=== PATIENT | male | born 1950 | race Caucasian/White ===

== ENCOUNTER 2023-03-13 17:49 | Inpatient (IN) | payer OTHER ==
[2023-03-13 18:52] LABS: Absolute Lymphocytes (CBC) 0.9 K/uL (0.7-4.9); Hematocrit 42.7 % (39.6-49.0); MCV 90.6 fL (80-100); MPV 8.9 fL (7.6-11.3); Platelets 195 thou/uL (152-406); RBC Red Blood Cell Count 4.72 M/uL (4.33-5.43)
[2023-03-13 19:02] LABS: Specific Gravity 1.029 (1.005-1.030); Urine Bacteria None Seen /HPF (<20); Urine Bilirubin NEGATIVE (Negative); Urine Blood Negative (Negative); Urine Clarity Clear (Clear); Urine Color Yellow (Yellow); Urine Glucose NEGATIVE (Negative); Urine Protein 1+ (Negative); Urine RBC <5 /HPF (None Seen); Urine Urobilinogen 1+ (Normal)
[2023-03-13 19:18] LABS: Albumin 3.4 g/dL (3.4-5.0); Bilirubin Total 0.8 mg/dL (0.2-1.0); Protein, Total 7.4 g/dL (6.4-8.2)
--- NOTE | 2023-03-13 20:10 | RAD REPORT ---
EXAM DESCRIPTION: CT - Angio Aorta For Dissection - 03/13/2023 7:52 pm CLINICAL HISTORY: Chest pain radiating to the back. ABD PAIN COMPARISON: No comparisons TECHNIQUE: CT angiography of the aorta was performed with MIPs. All CT scans are performed using dose optimization technique as appropriate and may include automated exposure control or mA/KV adjustment according to patient size. FINDINGS: A left aortic arch is present with normal branching pattern of the great vessels.No acute aortic finding is seen such as aneurysm, penetrating ulcer or dissection. The celiac axis, SMA, ILIANA and renal arteries are patent. No evidence of pulmonary embolism. Prominent emphysema. The liver demonstrates no focal mass or biliary dilatation.Cholecystectomy.The spleen, pancreas, adre nal glands are within normal limits for arterial phase imaging.Nonobstructing bilateral caliceal calc corby suspected. Benign bilateral renal cysts. A long segment of the sigmoid colon measuring 10-11 cm is abnormally thickened. There is irregular ri m enhancing 20 mm intramural fluid collection as well. Several diverticular present region. Although diverticulitis is a possibility, a colonic mass is also potential etiology. No pathologic enlarged ly mphadenopathy identified. Moderate lumbar degenerative changes. IMPRESSION: There is an abnormal 10-11 cm length of sigmoid colon noted in the left lower quadrant. There are several diverticula in this region as well as a 20 mm intramural enhancing fluid collection . The collective findings could be result of diverticulitis with intramural abscess, however the degr ee of pericolonic inflammation is limited.After appropriate therapy, although colonoscopy would be re commended as malignancy could also have this appearance. Diffuse COPD.
[2023-03-13 20:16] LABS: SARS-CoV-2 Antigen Rapid Res Negative (Negative)
--- NOTE | 2023-03-13 20:38 | EDPHYS ---
Physician Documentation [facility] Name: Soco Gillis Jr Age: 73 yrs Sex: Male : 1950 Arrival Date: 03/13/2023 Time: 17:49 Bed 15 Private MD: ED Physician Anuj Salazar HPI: 03/13 18:45 This 73 yrs old Male presents to ER via EMS with complaints of Abdominal Pain. snw 18:45 The patient presents with abdominal pain in the lower abdomen. Onset: The snw symptoms/episode began/occurred acutely. The symptoms do not radiate. Associated signs and symptoms: Pertinent positives: anorexia, diarrhea. The symptoms are described as crampy. Severity of pain: At its worst the pain was moderate. It is unknown whether or not the patient has had similar symptoms in the past. The patient has not recently seen a physician. Historical: - Allergies: 20:46 Codeine; kl 22:18 Cipro; kl - Home Meds: 20:46 simvastatin 20 mg Oral tablet 1 tab every day at bedtime [Active]; famotidine 20 mg kl Oral tablet 1 tab 2 times per day [Active]; carvedilol 6.25 mg oral tablet 1 tab 2 times per day [Active]; nitroglycerin 0.3 mg SL Tablet, Sublingual 1 tab every 5 minutes for acute episode of anginal pain [Active]; aspirin 81 mg Oral capsule 1 cap daily [Active]; - PMHx: 17:55 Myocardial infarction; Hypercholesterolemia; Diverticulitis; tm6 - PSHx: 17:55 Cholecystectomy; Stented artery; tm6 - Immunization history:: Adult Immunizations not up to date, Client reports having NOT received the Covid vaccine. - Social history:: Smoking status: Patient reports the use of cigarette tobacco products, smokes one-half pack cigarettes per day, Patient/guardian denies using alcohol. ROS: 18:43 Constitutional: Negative for fever, chills, and weight loss, Eyes: Negative for injury, snw pain, redness, and discharge, ENT: Negative for injury, pain, and discharge, Neck: Negative for injury, pain, and swelling, Cardiovascular: Negative for chest pain, palpitations, and edema, Respiratory: Negative for shortness of breath, cough, wheezing, and pleuritic chest pain, Back: Negative for injury and pain, : Negative for injury, bleeding, discharge, and swelling, MS/Extremity: Negative for injury and deformity, Skin: Negative for injury, rash, and discoloration, Neuro: Negative for headache, weakness, numbness, tingling, and seizure, Psych: Negative for depression, anxiety, suicide ideation, homicidal ideation, and hallucinations, 18:43 Abdomen/GI: Positive for abdominal pain, nausea, vomiting, and diarrhea, Exam: 18:43 Constitutional: This is a well developed, well nourished patient who is awake, alert, snw and in no acute distress. Head/Face: Normocephalic, atraumatic. Eyes: Pupils equal round and reactive to light, extra-ocular motions intact. Lids and lashes normal. Conjunctiva and sclera are non-icteric and not injected. Cornea within normal limits. Periorbital areas with no swelling, redness, or edema. ENT: Nares patent. No nasal discharge, no septal abnormalities noted. Tympanic membranes are normal and external auditory canals are clear. Oropharynx with no redness, swelling, or masses, exudates, or evidence of obstruction, uvula midline. Mucous membranes moist. Neck: Trachea midline, no thyromegaly or masses palpated, and no cervical lymphadenopathy. Supple, full range of motion without nuchal rigidity, or vertebral point tenderness. No Meningismus. Chest/axilla: Normal chest wall appearance and motion. Nontender with no deformity. No lesions are appreciated. Cardiovascular: Regular rate and rhythm with a normal S1 and S2. No gallops, murmurs, or rubs. Normal PMI, no JVD. No pulse deficits. Respiratory: Lungs have equal breath sounds bilaterally, clear to auscultation and percussion. No rales, rhonchi or wheezes noted. No increased work of breathing, no retractions or nasal flaring. Back: No spinal tenderness. No costovertebral tenderness. Full range of motion. Skin: Warm, dry with normal turgor. Normal color with no rashes, no lesions, and no evidence of cellulitis. MS/ Extremity: Pulses equal, no cyanosis. Neurovascular intact. Full, normal range of motion. Neuro: Awake and alert, GCS 15, oriented to person, place, time, and situation. Cranial nerves II-XII grossly intact. Motor strength 5/5 in all extremities. Sensory grossly intact. Cerebellar exam normal. Normal gait. Psych: Awake, alert, with orientation to person, place and time. Behavior, mood, and affect are within normal limits. 18:43 Abdomen/GI: Inspection: distension, Bowel sounds: hyperactive, in all quadrants, Palpation: mild abdominal tenderness, in the right lower quadrant and left lower quadrant, Vital Signs: 17:54 BP 146 / 124; Temp 98.2(O); Pulse Ox 95% on R/A; Weight 66.22 kg; Height 6 ft. 0 in. ; tm6 17:57 Pulse 78; tm6 18:04 BP 146 / 124; Pulse 82; Resp 17; Pulse Ox 97% on R/A; Pain 3/10; tm6 18:28 BP 160 / 91; Pulse 79; Pulse Ox 96% on R/A; tm6 20:15 BP 128 / 73; kl 21:23 BP 137 / 88; Pulse 72; Resp 16; Pulse Ox 97% ; kl 22:23 BP 116 / 68; Pulse 70; Resp 20; kl 17:54 Body Mass Index 19.80 (66.22 kg, 182.88 cm) tm6 18:04 Pain Scale: Adult tm6 MDM: 17:59 Differential diagnosis: AAA, hypertension, non-specific abd pain. Data reviewed: vital snw signs, nurses notes, lab test result(s), EKG, radiologic studies. Historians other than the Patient: EMS: [facility]. Care significantly affected by the following chronic conditions: Hypertension, diverticulitis. 18:00 Patient medically screened. snw 18:45 Counseling: I had a detailed discussion with the patient and/or guardian regarding the snw historical points, exam findings, and any diagnostic results supporting the discharge/admit diagnosis, the presence of at least one elevated blood pressure reading (>120/80) during this emergency department visit. 19:46 ED course: pt to CT via stretcher in no distress. snw 20:51 Management of patient was discussed with the following: Hospitalist: Alexandra Mujica. Response to treatment: the patient's symptoms have mildly improved after treatment. 03/13 17:56 Order name: CBC with Diff; Complete Time: 19:00 ld1 03/13 17:56 Order name: CMP; Complete Time: 19:19 ld1 03/13 17:56 Order name: Lipase; Complete Time: 19:19 ld1 03/13 17:56 Order name: Urinalysis w/ reflexes; Complete Time: 19:05 ld1 03/13 18:00 Order name: Troponin High Sensitivity; Complete Time: 19:35 snw 03/13 18:00 Order name: Blood Culture Adult (2) snw 03/13 18:47 Order name: Flu; Complete Time: 20:19 snw 03/13 18:47 Order name: SARS RAPID; Complete Time: 20:18 snw 03/13 22:05 Order name: Basic Metabolic Panel EDMS 03/13 22:05 Order name: Basic Metabolic Panel; Complete Time: 16:13 EDMS 03/13 22:05 Order name: Basic Metabolic Panel EDMS 03/13 22:05 Order name: Basic Metabolic Panel EDMS 03/13 22:05 Order name: CBC with Automated Diff EDMS 03/13 22:05 Order name: CBC with Automated Diff; Complete Time: 16:13 EDMS 03/13 22:05 Order name: CBC with Automated Diff EDMS 03/13 22:05 Order name: CBC with Automated Diff EDMS 03/13 22:05 Order name: Lipid Profile EDMS 03/13 22:05 Order name: Lipid Profile; Complete Time: 16:13 EDMS 03/13 22:05 Order name: Magnesium EDVT 03/13 22:05 Order name: Magnesium; Complete Time: 16:13 EDMS 03/13 22:05 Order name: Magnesium EDMS 03/13 22:05 Order name: Magnesium EDMS 03/13 22:07 Order name: Urinalysis w/ reflexes EDMS 03/13 17:58 Order name: CT Aorta for Dissection; Complete Time: 20:12 snw 03/13 22:05 Order name: CONS Physician Consult EDMS 03/13 17:56 Order name: IV Saline Lock; Complete Time: 18:05 ld1 03/13 17:56 Order name: Labs collected and sent; Complete Time: 18:27 ld1 03/13 20:51 Order name: NPO; Complete Time: 21:44 snw Administered Medications: 20:34 Not Given (Other Intervention Used): [id number] mg PO once kl 20:36 Drug: Ciprofloxacin IVPB 400 mg 200 ml IVPB once over 60 mins Volume: 200 ml; Route: kl IVPB; Infused Over: 60 mins; Site: right antecubital; 21:49 Drug: diphenhydrAMINE IVP 25 mg IVP once Route: IVP; Site: right antecubital; kl 22:18 Follow up: Response: Marked relief of symptoms kl Disposition Summary: 03/13/23 20:37 Hospitalization Ordered Notes: Hospitalization Status: Inpatient Admission snw Location: Telemetry/MedSurg (Inpatient) snw Condition: Stable snw Problem: an acute exacerbation snw Symptoms: are unchanged snw Bed/Room Type: Standard snw Provider: Harry Mujica(03/13/23 20:49) snw Room Assignment: 404(03/13/23 22:19) as6 Diagnosis - Diverticulitis of intestine, part unspecified, without perforation or abscess snw without bleeding - possible abscess, 20mm fluid collection Forms: - Medication Reconciliation Form snw - SBAR form snw - Leadership Thank You Letter snw Signatures: Dispatcher [employer] EDMS Padma Flynn RN RN Vandana Carrillo FNP-C TELECOMMUNICATION ENGINEER-Csnw Sue Wade RN RN ld1 [place] RN RN as6 Qian Richmond RN RN tm6 Corrections: (The following items were deleted from the chart) 20:46 20:44 Allergies: No Known Allergies; [facility] 20:49 20:37 Lorene Yeboah snw snw 22:19 20:37 snw as6
--- NOTE | 2023-03-13 20:38 | ER ---
Nurse's Notes [facility] Name: Soco Gillis Jr Age: 73 yrs Sex: Male : 1950 Arrival Date: 03/13/2023 Time: 17:49 Bed 15 Private MD: Diagnosis: Diverticulitis of intestine, part unspecified, without perforation or abscess without bleeding-possible abscess, 20mm fluid collection Presentation: 03/13 17:54 Chief complaint: EMS states: abdominal pain x1 day, LLQ and RUQ. Coronavirus screen: tm6 Vaccine status: Patient reports being unvaccinated. Ebola Screen: Patient negative for fever greater than or equal to 101.5 degrees Fahrenheit, and additional compatible Ebola Virus Disease symptoms Patient denies exposure to infectious person. Patient denies travel to an Ebola-affected area in the 21 days before illness onset. No symptoms or risks identified at this time. Initial Sepsis Screen: Does the patient meet any 2 criteria? No. Patient's initial sepsis screen is negative. Does the patient have a suspected source of infection? No. Patient's initial sepsis screen is negative. Risk Assessment: Do you want to hurt yourself or someone else? Patient reports no desire to harm self or others. Onset of symptoms was March 13, 2023. 17:54 Method Of Arrival: EMS: [facility] tm6 17:54 Acuity: KAY 3 tm6 Triage Assessment: 18:01 General: Appears in no apparent distress. Behavior is calm, cooperative, appropriate tm6 for age. Pain: Complains of pain in abdomen Pain began 1 day ago. EENT: No signs and/or symptoms were reported regarding the EENT system. Neuro: Level of Consciousness is awake, alert, obeys commands, Oriented to person, place, time, situation. Cardiovascular: Capillary refill < 3 seconds Patient's skin is warm and dry. Respiratory: Airway is patent Respiratory effort is even, unlabored, Respiratory pattern is regular, symmetrical. GI: Abdomen is non-distended, Reports lower abdominal pain, upper abdominal pain. : No signs and/or symptoms were reported regarding the genitourinary system. Derm: No signs and/or symptoms reported regarding the dermatologic system. Musculoskeletal: No signs and/or symptoms reported regarding the musculoskeletal system. Historical: - Allergies: 20:46 Codeine; kl 22:18 Cipro; kl - Home Meds: 20:46 simvastatin 20 mg Oral tablet 1 tab every day at bedtime [Active]; famotidine 20 mg kl Oral tablet 1 tab 2 times per day [Active]; carvedilol 6.25 mg oral tablet 1 tab 2 times per day [Active]; nitroglycerin 0.3 mg SL Tablet, Sublingual 1 tab every 5 minutes for acute episode of anginal pain [Active]; aspirin 81 mg Oral capsule 1 cap daily [Active]; - PMHx: 17:55 Myocardial infarction; Hypercholesterolemia; Diverticulitis; tm6 - PSHx: 17:55 Cholecystectomy; Stented artery; tm6 - Immunization history:: Adult Immunizations not up to date, Client reports having NOT received the Covid vaccine. - Social history:: Smoking status: Patient reports the use of cigarette tobacco products, smokes one-half pack cigarettes per day, Patient/guardian denies using alcohol. Screenin:03 [facility] ED Fall Risk Assessment (Adult) History of falling in the last 3 months, tm6 including since admission No falls in past 3 months (0 pts). Abuse screen: Denies threats or abuse. Denies injuries from another. Nutritional screening: No deficits noted. Tuberculosis screening: No symptoms or risk factors identified. Assessment: 18:03 General: see triage assessment. tm6 18:27 Reassessment: Patient appears in no apparent distress at this time. Patient and/or tm6 family updated on plan of care and expected duration. Pain level reassessed. Patient is alert, oriented x 3, equal unlabored respirations, skin warm/dry/pink. General:. 21:42 Reassessment: pt c/o itching at insertion site of medication administration pt received kl 192 cc of Cipro denies SOB or any other area of itching infusion stopped provider notified order rec'd. 22:27 Reassessment: Patient appears in no apparent distress at this time. Vital Signs: 17:54 BP 146 / 124; Temp 98.2(O); Pulse Ox 95% on R/A; Weight 66.22 kg; Height 6 ft. 0 in. ; tm6 17:57 Pulse 78; tm6 18:04 BP 146 / 124; Pulse 82; Resp 17; Pulse Ox 97% on R/A; Pain 3/10; tm6 18:28 BP 160 / 91; Pulse 79; Pulse Ox 96% on R/A; tm6 20:15 BP 128 / 73; kl 21:23 BP 137 / 88; Pulse 72; Resp 16; Pulse Ox 97% ; kl 22:23 BP 116 / 68; Pulse 70; Resp 20; kl 17:54 Body Mass Index 19.80 (66.22 kg, 182.88 cm) tm6 18:04 Pain Scale: Adult tm6 ED Course: 17:50 Patient arrived in ED. ld1 17:54 Qian Richmond, YANICK is Primary Nurse. tm6 17:55 Triage completed. tm6 17:58 Vandana Foster FNP-C is PHCP. snw 17:58 Anuj Salazar MD is Attending Physician. snw 18:01 Arm band placed on right wrist. tm6 18:03 Bed in low position. Call light in reach. Side rails up X2. Provided Education on: need tm6 for VS monitoring. Client placed on continuous cardiac and pulse oximetry monitoring. NIBP monitoring applied. Door closed. Noise minimized. Warm blanket given. 18:03 No provider procedures requiring assistance completed. Maintain EMS IV. Dressing tm6 intact. Site clean \T\ dry. Gauge \T\ site: 20g RAC. 18:27 Blood Culture Adult (2) Sent. ld1 18:27 Troponin High Sensitivity Sent. ld1 18:27 CBC with Diff Sent. ld1 18:27 CMP Sent. ld1 18:27 Lipase Sent. ld1 18:27 Urinalysis w/ reflexes Sent. ld1 19:54 CT Aorta for Dissection In Process Unspecified. EDMS 20:05 No apparent distress. Resting quietly. Appears to be sleeping. kl 20:35 Lorene Yeboah MD is Hospitalizing Provider. snw 20:49 Harry Mujica is Hospitalizing Provider. snw 22:28 Patient admitted, IV remains in place. kl Administered Medications: 20:34 Not Given (Other Intervention Used): [id number] mg PO once kl 20:36 Drug: Ciprofloxacin IVPB 400 mg 200 ml IVPB once over 60 mins Volume: 200 ml; Route: kl IVPB; Infused Over: 60 mins; Site: right antecubital; 21:49 Drug: diphenhydrAMINE IVP 25 mg IVP once Route: IVP; Site: right antecubital; kl 22:18 Follow up: Response: Marked relief of symptoms jenifer Medication: 18:03 VIS not applicable for this client. tm6 Outcome: 20:37 Decision to Hospitalize by Provider. shannon 22:28 Admitted to Tele accompanied by ken, via stretcher, room 404, Report called to Anthony burgess 22:28 Condition: improved 22:28 Discharge instructions given to patient, Instructed on the need for admit, Demonstrated understanding of instructions, 22:28 Patient left the ED. Signatures: Dispatcher [employer] EDPadma Ya, RN RN Vandana Carrillo, FISCAL OFFICER-C FISCAL OFFICER-Csnw Sue Wade RN RN ld1 Qian Richmond RN RN tm6 Corrections: (The following items were deleted from the chart) 20:46 20:44 Allergies: No Known Allergies; [facility]
[2023-03-13] MEDS ORDERED: CIPROFLOXACIN 400mg IV 400 MG/200 ML BAG IV ONE (20:39)
[2023-03-13] MEDS ORDERED: ACETAMINOPHEN 500 MG TAB PO PRN (21:58)
[2023-03-13] MEDS ORDERED: HYDROCODONE/APAP 5/325 MG TAB PO PRN (21:58)
[2023-03-13] MEDS ORDERED: DIPHENHYDRAMINE 50 MG/ML VIAL ONE (22:00)
[2023-03-13] MEDS ORDERED: ALBUTEROL 2.5 MG/3 ML NEB SOL NEB PRN (22:03)
[2023-03-13] MEDS ORDERED: SODIUM CHLORIDE 0.9% 10ML INJ IV PRN (22:08)
--- NOTE | 2023-03-13 22:20 | P.HP ---
Certification for Inpatient Patient admitted to: Inpatient With expected LOS: <2 Midnights <Lucia Alvarado - Last Filed: 03/13/23 22:40> Patient History Date of Service: 03/13/23 Reason for admission: Abdominal Pain, Diverticulitis History of Present Illness: A 73-year-old male patient with a history of hypertension, CAD, hyperlipidemia, diverticulitis presented to the emergency room with the complaints of abdominal pain on the left lower quadrant in the right upper quadrant for almost 1 week. Patient reports pain on and off for 1 week but increased pain today associated with vomiting 3 times and diarrhea 3 times today. Patient denies fever chills, patient denies chest pain, shortness of breath and palpitation. ED course Patient is alert and oriented, not in any apparent distress at this time. Vital signs blood pressure 146/124, temperature 98.2, pulse 82, pulse ox 95% on room air. EKG showing sinus rhythm. Initial laboratory findings are unremarkable.CT abdomen shows diverticulitis with an intramural abscess. Patient received IV fluids, analgesics and ciprofloxacin in the emergency room. Admitting the patient with a diagnosis of diverticulitis and intramural abscess. Home medications list reviewed: Yes - Past Medical/Surgical History Diabetic: No -: HTN -: CAD, HLD -: Cholecystectomy Psychosocial/ Personal History: Lives in home with family - Social History Smoking Status: Current every day smoker (1/2 pack cigarettes per day) Counseled patient to stop smoking for: less than 10 minutes Smoking therapy provided: Yes Patient receptive to therapy: Yes Alcohol use: Yes CD- Drugs: No Caffeine use: Yes Place of Residence: Home <ChristianoAbdoulginettebrandon - Last Filed: 03/13/23 22:40> Date of Service: 03/14/23 <Lorene Yeboah - Last Filed: 03/14/23 03:14> Review of Systems 10-point ROS is otherwise unremarkable <AlvaradoLucia oliva - Last Filed: 03/13/23 22:40> Physical Examination - Physical Exam General: Alert, Oriented x3 HEENT: Atraumatic, Normocephalic, PERRLA Neck: Supple, 2+ carotid pulse no bruit Respiratory: Clear to auscultation bilaterally, Normal air movement Cardiovascular: No edema, Normal pulses, Regular rate/rhythm, Normal S1 S2 Capillary refill: <2 Seconds Gastrointestinal: Normal bowel sounds, Hypoactive, Non-distended, Other (Abdominal pain left lower quadrant and right upper quadrant) Musculoskeletal: No clubbing, No swelling, No contractures Integumentary: No rashes, No breakdown, No significant lesion Neurological: Normal speech, Normal tone, Normal affect - Studies Laboratory Data (last 24 hrs) 03/13/23 03/13/23 18:16 18:16 WBC 11.20 H Hgb 14.3 Hct 42.7 Plt Count 195 Sodium 136 Potassium 4.0 BUN 17 Creatinine 0.85 Glucose 106 Total Bilirubin 0.8 AST 15 ALT 18 Alkaline Phosphatase 95 Lipase 19 Microbiology Data (last 24 hrs): 03/13/23 19:28 Nasopharnyx Influenza Type A Antigen Screen - Final 03/13/23 19:28 Nasopharnyx Influenza Type B Antigen Screen - Final <Lucia Alvarado - Last Filed: 03/13/23 22:40> - Studies Laboratory Data (last 24 hrs) 03/13/23 03/13/23 18:16 18:16 WBC 11.20 H Hgb 14.3 Hct 42.7 Plt Count 195 Sodium 136 Potassium 4.0 BUN 17 Creatinine 0.85 Glucose 106 Total Bilirubin 0.8 AST 15 ALT 18 Alkaline Phosphatase 95 Lipase 19 Microbiology Data (last 24 hrs): 03/13/23 19:28 Nasopharnyx Influenza Type A Antigen Screen - Final 03/13/23 19:28 Nasopharnyx Influenza Type B Antigen Screen - Final <Lorene Yeboah - Last Filed: 03/14/23 03:14> Assessment and Plan - Problems (Diagnosis) (1) Diverticulitis of sigmoid colon Current Visit: Yes Status: Acute (2) Intracranial abscess Current Visit: Yes Status: Acute (3) Abdominal pain Current Visit: Yes Status: Acute (4) Hypertension Current Visit: Yes Status: Chronic Qualifiers: Hypertension type: primary hypertension Qualified Code(s): I10 - Essential (primary) hypertension - Plan (1) Diverticulitis of sigmoid colon (2) Intracranial abscess (3) Abdominal pain * Acute, patient came in with complaints of abdominal pain almost for a week, on the left lower quadrant in the right upper quadrant. Patient is afebrile, vitals are stable. Initial laboratory reports are unremarkable but the CT scan abdomen shows abnormal 10 to 11 cm sigmoid colon, diverticuli as well as 20 mm intramural fluid collection could be result of diverticulitis with intramural abscess. * Catheter GI surgeon Dr. Webster * Admitting the patient to the hospital, IV fluid, PPI, IV antibiotics, n.p.o. status, analgesics, and antiemetics. * Recheck the labs in the morning, replace electrolytes as needed * Monitor vital signs closely (4) Hypertension * Chronic, controlled * Reconciled home medications and restart medications as appropriate CODE STATUS Full code DVT prophylaxis Lovenox Diet N.p.o. Discharge Plan: Home Plan to discharge in: 48 Hours - Advance Directives Does patient have a Living Will: No Does patient have a Durable POA for Healthcare: No - Code Status/Comfort Care Code Status Assessed: Yes (Full code) Code Status: Full Code Physician Review: Patient Assessed, Agree with Above Assessment and Plan Critical Care: No Time Spent Managing Pts Care (In Minutes): 55 (Minutes) <Lucia Alvarado - Last Filed: 03/13/23 22:40> Date of Service: 03/13/23 Chart has been reviewed. Events noted. General surgery consultation has been obtained. Continue with IV antibiotics and pain control. Patient will get evaluation of intra-abdominal abscess in a couple of days. If it continues to grow we may need to do a percutaneous drainage of the intra-abdominal abscess. Continue on IV antibiotics at this time. <Lorene Yeboah - Last Filed: 03/14/23 03:14>
[2023-03-13 23:15] VITALS: BMI 19.8
[2023-03-13] MEDS: NA CHLORIDE 0.9% 1,000 ML IV SCH (23:26)
[2023-03-14] MEDS: METRONIDAZOLE 500mg IVPB 500 MG/100 ML BAG IV SCH ×3 (00:36→17:46)
[2023-03-14] MEDS: MORPHINE 2 MG/ML SYR IV PRN ×2 (02:52→07:03)
[2023-03-14] MEDS: ONDANSETRON 4 MG/2 ML VIAL IV PRN ×2 (02:52→17:40)
[2023-03-14 04:12] LABS: Absolute Lymphocytes (CBC) 0.8 K/uL (0.7-4.9); Hematocrit 36.2 % (39.6-49.0); Lymphocytes % 8.2 % (15.3-44.8); MCV 91.3 fL (80-100); MPV 8.9 fL (7.6-11.3); Platelets 168 thou/uL (152-406); RBC Red Blood Cell Count 3.97 M/uL (4.33-5.43)
[2023-03-14 04:45] LABS: Magnesium 1.6 mg/dL (1.6-2.4); Potassium 3.1 mEq/L (3.5-5.1)
[2023-03-14 07:05] LABS: C.diff Antigen/Toxin Ag neg : Tox neg (NEG : NEG)
[2023-03-14] MEDS ORDERED: MAGNESIUM SULFATE 1 gm IVPB 1 GM/100 ML BAG IV ONE (08:00)
[2023-03-14] MEDS: NA CHLORIDE 0.9% 1,000 ML IV SCH ×2 (08:00→18:00)
--- NOTE | 2023-03-14 09:55 | P.PN ---
Subjective Date of Service: 03/14/23 Chief Complaint: Abdominal Pain, Diverticulitis Subjective: No new changes, Improving Physical Examination - Vital Signs Temperature: 98.9 F Blood Pressure: 107/61 Pulse: 75 Respirations: 20 Pulse Ox (%): 96 - Physical Exam General: Alert, Oriented x3 HEENT: Atraumatic, Normocephalic Neck: Supple Respiratory: Normal air movement Cardiovascular: Regular rate/rhythm, Normal S1 S2 Gastrointestinal: Soft and benign Musculoskeletal: No swelling Neurological: Normal speech - Studies Laboratory Data (last 24 hrs) 03/13/23 03/13/23 18:16 18:16 WBC 11.20 H Hgb 14.3 Hct 42.7 Plt Count 195 Sodium 136 Potassium 4.0 BUN 17 Creatinine 0.85 Glucose 106 Total Bilirubin 0.8 AST 15 ALT 18 Alkaline Phosphatase 95 Lipase 19 Microbiology Data (last 24 hrs): 03/13/23 19:28 Nasopharnyx Influenza Type A Antigen Screen - Final 03/13/23 19:28 Nasopharnyx Influenza Type B Antigen Screen - Final Assessment And Plan - Plan Assessment and Plan - Problems (Diagnosis) (1) Diverticulitis of sigmoid colon Current Visit: Yes Status: Acute (2) Intracranial abscess Current Visit: Yes Status: Acute (3) Abdominal pain Current Visit: Yes Status: Acute (4) Hypertension Current Visit: Yes Status: Chronic Qualifiers: Hypertension type: primary hypertension Qualified Code(s): I10 - Essential (primary) hypertension - Plan (1) Diverticulitis of sigmoid colon (2) Intracranial abscess (3) Abdominal pain * Has abdominal pain persistently but improved since admission and antibiotics were started. Had colonoscopy done in [place] a couple of weeks prior to now. We will obtain records. We will continue with same care management as per surgery and will follow recommendations. We will continue to keep n.p.o./advance diet as per surgeon recommendation. Small abscess noted on imaging, no surgical intervention planned for now. (4) Hypertension * Chronic, controlled * Reconciled home medications and restart medications as appropriate CODE STATUS Full code DVT prophylaxis Lovenox Diet N.p.o. Discharge Plan: Home Plan to discharge in: next 24-48 Hours - Advance Directives Does patient have a Living Will: No Does patient have a Durable POA for Healthcare: No - Code Status/Comfort Care Code Status Assessed: Yes (Full code) Code Status: Full Code Physician Review: Patient Assessed, Agree with Above Assessment and Plan Critical Care: No Time Spent Managing Pts Care (In Minutes): 35 (Minutes) Physician Review: Patient Assessed, Agree with Above Assessment and Plan
[2023-03-14] MEDS: Levofloxacin 750mg IV 750 MG/150 ML BAG IV SCH (10:14)
[2023-03-14] MEDS: PANTOPRAZOLE 40 MG INJ IVP SCH ×2 (10:15→20:33)
[2023-03-14] MEDS: ENOXAPARIN 40 MG/0.4 ML SQ SCH (10:15)
--- NOTE | 2023-03-14 11:46 | CON ---
Date of Consultation: 03/13/2023 Reason For Consultation: Diverticulitis. History Of Present Illness: The patient is a 73-year-old gentleman who has multiple medical problems and presented to the emergency room with left lower and suprapubic abdominal pain for about a week. The patient had diarrhea 3 times since being admitted to the hospital and vomited 3 times. However, he is passing gas and the pain is subsided somewhat. The patient states that he was in [place] 4 m onths ago, and he had similar episode and they did a colonoscopy but he does not know the results of that. He denies any blood in his stool. There is no family history of colorectal carcinoma. On the CAT scan, the patient did have a small collection in the intramural part of the colon. No sore thro at, runny nose, cough, headaches, or dizziness. No chest pain. No fever or chills. Review of Systems: Otherwise unremarkable. Past Medical History: Hypertension, coronary artery disease, hyperlipidemia. Past Surgical History: Cholecystectomy. Allergies: CIPRO AND CODEINE. Social History: The patient smokes half a pack a day and was counseled. Drinks occasionally. Family History: Noncontributory. Physical Examination: Vital Signs: Stable. He is afebrile. General: He is awake, alert, oriented x3. Head and Neck: Cranial nerves 2 through 12 are grossly within normal limits. No neck masses. No JV D. Throat clear. Neck is supple. Chest: Clear. Heart: S1, S2. Abdomen: Soft, nondistended. Positive bowel sounds. Minimal suprapubic tenderness. No rebound, ri gidity, or guarding. Extremities: Adequately perfused, nontender. Neuro: Nonfocal. Laboratory Data: White count on admission was 11.2, today is 9.7 with slight left shift. Chemistry reviewed. CT dissection was done as patient had nonspecific pain elsewhere on admission, which shows an abnormal 10-11 cm length of sigmoid colon in the left lower quadrant. Several diverticula in the region as well as a 20 mm intramural enhancing fluid collection. A collective finding could be resu lt of diverticulitis with intramural abscess. However, the degree of pericolonic inflammation is madera ited. After appropriate therapy, colonoscopy would be recommended as malignancy could also have this appearance. Assessment: Acute sigmoid diverticulitis with a micro abscess. Recommendations: Continue IV antibiotics, sips of clear liquids, slowly advance diet as tolerated. The patient will need 2 weeks of oral antibiotics and we will try to get the results of the colonosco py done and I will make further recommendation once we get that. There is no need for any acute surg ical intervention at this time. /MODL Voice ID: [id number] Report ID: [id number]
[2023-03-14] MEDS ORDERED: ALBUTEROL 2.5 MG/3 ML NEB SOL NEB PRN (12:00)
[2023-03-14] MEDS: KCL 20 MEQ/100 mL IVPB 20 MEQ/100 ML BAG IV SCH ×2 (12:37→15:00)
[2023-03-14] MEDS ORDERED: LORazepam 2 MG/ML VIAL IV ONE (19:27)
[2023-03-15] MEDS: METRONIDAZOLE 500mg IVPB 500 MG/100 ML BAG IV SCH ×3 (00:58→17:12)
[2023-03-15] MEDS: NA CHLORIDE 0.9% 1,000 ML IV SCH ×3 (05:15→20:29)
[2023-03-15 07:10] LABS: Absolute Lymphocytes (CBC) 0.8 K/uL (0.7-4.9); Hematocrit 38.3 % (39.6-49.0); MCV 90.6 fL (80-100); MPV 8.6 fL (7.6-11.3); Platelets 186 thou/uL (152-406); RBC Red Blood Cell Count 4.23 M/uL (4.33-5.43)
[2023-03-15] MEDS: ENOXAPARIN 40 MG/0.4 ML SQ SCH (09:45)
[2023-03-15] MEDS: Levofloxacin 750mg IV 750 MG/150 ML BAG IV SCH (09:45)
[2023-03-15] MEDS: PANTOPRAZOLE 40 MG INJ IVP SCH ×2 (09:46→20:30)
--- NOTE | 2023-03-15 10:52 | PN ---
Date of Progress Note: 03/15/2023 Subjective: The patient is awake, alert. He denies any abdominal pain currently. No nausea, vomiti ng. Tolerating his clear liquids. Laboratory Data: Reviewed. His white count is 7.8, slight left shift which is improving. Chemistri es within normal limits. Objective: Vital Signs: Stable. He is afebrile. Abdomen: Soft, nondistended, nontender. Positive bowel sounds. Assessment: Acute diverticulitis, improving. Recommendations: Awaiting records from [place] regarding the colonoscopy he had, and we will contin ue him on IV antibiotics. Advance diet. Likely discharge in 24 hours on oral antibiotics for 2 week s. Will need a GI followup after that. No need for any surgical intervention at this time. /MODL Voice ID: [id number] Report ID: [id number]
--- NOTE | 2023-03-15 14:17 | P.DS ---
Admission Date: 03/13/23 Discharge Date: 03/15/23 Disposition: ROUTINE DISCHARGE Discharge Condition: GOOD Reason for Admission: Abdominal Pain, Diverticulitis Brief History of Present Illness: A 73-year-old male patient with a history of hypertension, CAD, hyperlipidemia, diverticulitis presented to the emergency room with the complaints of abdominal pain on the left lower quadrant in the right upper quadrant for almost 1 week. Patient reports pain on and off for 1 week but increased pain today associated with vomiting 3 times and diarrhea 3 times today. Patient denies fever chills, patient denies chest pain, shortness of breath and palpitation. ED course Patient is alert and oriented, not in any apparent distress at this time. Vital signs blood pressure 146/124, temperature 98.2, pulse 82, pulse ox 95% on room air. EKG showing sinus rhythm. Initial laboratory findings are unremarkable.CT abdomen shows diverticulitis with an intramural abscess. Patient received IV fluids, analgesics and ciprofloxacin in the emergency room. Admitting the patient with a diagnosis of diverticulitis and intramural abscess. Hospital Course: He responded well to antibiotic therapy and bowel rest for a couple of days. He is stable now and is tolerated oral feeds today. His pain control is much adequate with present regimen. He is discharged to continue oral antibiotic as ciprofloxacin and Flagyl for 14 complete days and to follow-up with surgeon Dr Webster, and dog raiser Dr. Sargent as scheduled on outpatient. He will also have his initial colonoscopy done in [place] reviewed an outpatient by dog raiser for management recommendation for his recurrent diverticulitis episode. Vital Signs/Physical Exam: Temp Pulse Resp BP Pulse Ox 98.2 F 77 19 141/84 H 99 03/15/23 12:00 03/15/23 12:00 03/15/23 12:00 03/15/23 12:00 03/15/23 12:00 General: Alert, Oriented x3 HEENT: Atraumatic Neck: Supple Respiratory: Normal air movement Cardiovascular: Regular rate/rhythm, Normal S1 S2 Gastrointestinal: Soft and benign Musculoskeletal: No swelling Neurological: Normal speech Laboratory Data at Discharge: WBC 7.80 thou/uL (4.3-10.9) 03/15/23 06:37 Hgb 13.3 g/dL (13.6-17.9) L 03/15/23 06:37 Hct 38.3 % (39.6-49.0) L 03/15/23 06:37 Plt Count 186 thou/uL (152-406) 03/15/23 06:37 Sodium 138 mEq/L (136-145) 03/15/23 06:32 Potassium 4.0 mEq/L (3.5-5.1) D 03/15/23 06:32 BUN 11 mg/dL (7-18) 03/15/23 06:32 Creatinine 0.78 mg/dL (0.70-1.30) 03/15/23 06:32 Glucose 90 mg/dL (74-106) 03/15/23 06:32 Magnesium 2.0 mg/dL (1.6-2.4) 03/15/23 06:32 Total Bilirubin 0.8 mg/dL (0.2-1.0) 03/13/23 18:16 AST 15 U/L (15-37) 03/13/23 18:16 ALT 18 U/L (16-61) 03/13/23 18:16 Alkaline Phosphatase 95 U/L (45-117) 03/13/23 18:16 Triglycerides 48 mg/dL (<150) 03/14/23 03:38 Cholesterol 76 mg/dL (<200) 03/14/23 03:38 HDL Cholesterol 36 mg/dL (40-60) L 03/14/23 03:38 Cholesterol/HDL Ratio 2.11 03/14/23 03:38 Lipase 19 U/L (13-75) 03/13/23 18:16 Home Medications: Aspirin Chewable [Aspirin Chewable*] 1 tab PO DAILY 03/14/23 Famotidine [Pepcid*] 1 tab PO BID 03/14/23 Nitroglycerin [Nitrostat*] 1 tab SL UD 03/14/23 Simvastatin [Zocor] 1 tab PO BEDTIME 03/14/23 carvediloL [Carvedilol] 1 tab PO BID 03/14/23 Diet: Regular Activity: Ad vandana Followup: Jw Puentes MD [ASSOCIATE-ACTIVE - CAN ADMIT] - John Webster MD [ACTIVE - CAN ADMIT] -
[2023-03-16] MEDS: METRONIDAZOLE 500mg IVPB 500 MG/100 ML BAG IV SCH ×2 (01:22→10:11)
[2023-03-16] MEDS: MORPHINE 2 MG/ML SYR IV PRN (04:43)
[2023-03-16] MEDS: ONDANSETRON 4 MG/2 ML VIAL IV PRN (04:46)
[2023-03-16] MEDS: NA CHLORIDE 0.9% 1,000 ML IV SCH (04:53)
[2023-03-16 07:00] LABS: Absolute Lymphocytes (CBC) 0.8 K/uL (0.7-4.9); Hematocrit 37.7 % (39.6-49.0); Lymphocytes % 11.2 % (15.3-44.8); MCV 91.8 fL (80-100); MPV 8.5 fL (7.6-11.3); Platelets 191 thou/uL (152-406); RBC Red Blood Cell Count 4.11 M/uL (4.33-5.43)
[2023-03-16 07:10] LABS: Magnesium 1.9 mg/dL (1.6-2.4); Potassium 3.7 mEq/L (3.5-5.1)
[2023-03-16 08:46] VITALS: TEMP 97.8
[2023-03-16] MEDS ORDERED: POTASSIUM CL SA 10 MEQ TAB PO ONE (09:00)
[2023-03-16 09:02] VITALS: O2SAT 95
[2023-03-16] MEDS: ENOXAPARIN 40 MG/0.4 ML SQ SCH (10:08)
[2023-03-16] MEDS: PANTOPRAZOLE 40 MG INJ IVP SCH (10:08)
[2023-03-16] MEDS: Levofloxacin 750mg IV 750 MG/150 ML BAG IV SCH (10:08)
[2023-03-16 12:31] VITALS: BP 116/62
== END 2023-03-16 14:29 | disposition home or self-care (01) | DRG 392 ==
LOC: ER 17:49 → ERHOLD 21:54 → 4TH 22:21
PROVIDERS: ADMIT Hospitalist; ATTEND Internal Medicine Nephrology
DX: K57.20 Diverticulitis of large intestine with perforation and abscess without bleeding (principal); I10 Essential (primary) hypertension; E78.00 Pure hypercholesterolemia, unspecified; I25.10 Atherosclerotic heart disease of native coronary artery without angina pectoris; F17.210 Nicotine dependence, cigarettes, uncomplicated; I25.2 Old myocardial infarction; Z88.5 Allergy status to narcotic agent; Z88.1 Allergy status to other antibiotic agents; Z79.02 Long term (current) use of antithrombotics/antiplatelets; Z90.49 Acquired absence of other specified parts of digestive tract; Z11.52 Encounter for screening for COVID-19; Z79.82 Long term (current) use of aspirin; Z79.899 Other long term (current) drug therapy; Z28.310 Unvaccinated for COVID-19
CPT/HCPCS: 36415; 71275; 74175; 80048; 80053; 80061; 81001; 83690; 83735; 84484; 85025; 87040; 87324; 87804; 87811; 96374; 96375; 99285; C9113; J0744; J1200; J1650; J2270; J2405; J3475; J3480; J7030; Q9967

== ENCOUNTER 2023-03-21 04:31 | Inpatient (IN) | payer OTHER ==
[2023-03-21] MEDS ORDERED: LORazepam 2 MG/ML VIAL ONE (04:48)
[2023-03-21] MEDS ORDERED: HALOPERIDOL LACT 5 MG/ML INJ ONE (04:49)
[2023-03-21 05:32] LABS: Absolute Lymphocytes (CBC) 0.8 K/uL (0.7-4.9); Hematocrit 40.5 % (39.6-49.0); Lymphocytes % 11.4 % (15.3-44.8); MCV 90.1 fL (80-100); MPV 8.7 fL (7.6-11.3); Platelets 260 thou/uL (152-406); RBC Red Blood Cell Count 4.49 M/uL (4.33-5.43)
[2023-03-21] MEDS ORDERED: NA CHLORIDE 0.9% 1,000 ML ONE (05:34)
[2023-03-21] MEDS ORDERED: THIAMINE 200 MG/2 ML INJ ONE (05:34)
[2023-03-21 05:38] LABS: Protime INR 1.32
[2023-03-21 06:03] LABS: ALT/SGPT 18 U/L (16-61); AST/SGOT 15 U/L (15-37); Alkaline Phosphatase 64 U/L (45-117); BUN Blood Urea Nitrogen 14 mg/dL (7-18); Bicarbonate 23 mEq/L (21-32); Bilirubin Direct 0.1 mg/dL (0-0.2); Bilirubin Indirect, Calculated 0.2 mg/dL (0.2-0.8); Bilirubin Total 0.3 mg/dL (0.2-1.0); Glomerular Filtration Rate 96 ml/min (=/>90); Glucose Level 130 mg/dL (74-106); Potassium 3.4 mEq/L (3.5-5.1); Sodium Level 137 mEq/L (136-145); Thyroid Stimulating Hormone 0.721 uIU/mL (0.358-3.740)
[2023-03-21 08:18] LABS: Specific Gravity 1.006 (1.005-1.030); Urine Bacteria None Seen /HPF (<20); Urine Bilirubin NEGATIVE (Negative); Urine Blood Negative (Negative); Urine Clarity Clear (Clear); Urine Color Colorless (Yellow); Urine Crystals Unidentified Few /HPF (None Seen); Urine Glucose NEGATIVE (Negative); Urine Protein NEGATIVE (Negative); Urine RBC <5 /HPF (None Seen); Urine Urobilinogen Normal (Normal); Urine pH 6.5 (5.0-7.0)
[2023-03-21 08:20] LABS: Barbiturates NEGATIVE (NEGATIVE); Benzodiazepines NEGATIVE (NEGATIVE); Cocaine NEGATIVE (NEGATIVE); METHAMPHETAM NEGATIVE (NEGATIVE); Methadone NEGATIVE (NEGATIVE); Opiates NEGATIVE (NEGATIVE); Phencyclidine NEGATIVE (NEGATIVE); THC Cannibis NEGATIVE (NEGATIVE)
--- NOTE | 2023-03-21 09:08 | EDPHYS ---
Physician Documentation [facility] Name: Soco Gillis Jr Age: 73 yrs Sex: Male : 1950 Arrival Date: 03/21/2023 Time: 04:31 Bed 6 Private MD: ED Physician Zaki Wade HPI: 03/21 04:47 This 73 yrs old Male presents to ER via EMS with complaints of agitation, sp4 confusion . 05:15 This is a very pleasant 81-year-old male with history of diverticulitis and sp4 hypercholesterolemia who presents with EMS for bizarre behavior at home. Patient was reported to be walking about naked in his apartment causing disturbance and turning off his father's oxygen. Patient resides in the same apartment with his father and son. Patient also was reported to be confused and talking out of his head. On arrival patient is confused he is not answering questions appropriately. He reports history of alcohol abuse. 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 . Historical: - Allergies: 04:44 Cipro; bp 04:44 Codeine; bp - PMHx: 04:44 Diverticulitis; Hypercholesterolemia; Myocardial infarction; bp - PSHx: 04:44 Cholecystectomy; Stented artery; bp - Immunization history:: Adult Immunizations unknown. - Social history:: Smoking status: unknown. - Family history:: not pertinent. ROS: 05:15 Constitutional: Negative for fever, chills, and weight loss, additional history is not sp4 available secondary to acute agitated delirium 05:15 All other systems are negative, 05:15 Unable to obtain ROS due to altered mental status, Exam: 05:15 Constitutional: This is a well developed, well nourished patient who is awake, alert, sp4 patient is acutely confused tall thin male, patient is is not wearing any clothes. EMS reports patient disrobed while in route to the hospital. Patient has rambling speech and disorganized thought process on arrival. Does not appear intoxicated Head/Face: Normocephalic, atraumatic. Eyes: Pupils equal round and reactive to light, extra-ocular motions intact. Lids and lashes normal. Conjunctiva and sclera are not injected. Cornea within normal limits. Periorbital areas with no swelling, redness, or edema. ENT: Nares patent. No nasal discharge, no septal abnormalities noted. Tympanic membranes are normal and external auditory canals are clear. Oropharynx with no redness, swelling, or masses, exudates, or evidence of obstruction, uvula midline. Mucous membranes moist. Neck: Trachea midline, no thyromegaly or masses palpated, and no cervical lymphadenopathy. Supple, full range of motion without nuchal rigidity, or vertebral point tenderness. Chest/axilla: Normal chest wall appearance and motion. Nontender with no deformity. No lesions are appreciated. Cardiovascular: Regular rate and rhythm with a normal S1 and S2. No gallops, murmurs, or rubs. Normal PMI, no JVD. No pulse deficits. Respiratory: Lungs have equal breath sounds bilaterally, clear to auscultation and percussion. No rales, rhonchi or wheezes noted. No increased work of breathing, no retractions or nasal flaring. 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 No distension or tympany. No guarding or rebound. No evidence of tenderness throughout. Back: No spinal tenderness. No costovertebral tenderness. Male : Normal genitalia with no discharge or lesions. Skin: Warm, dry with normal turgor. Normal color with no rashes, no lesions, and no evidence of cellulitis. MS/ Extremity: Pulses equal, no cyanosis. Neurovascular intact. Full, normal range of motion. Neuro: Awake and alert, GCS 14, oriented to person, Cranial nerves II-XII grossly intact. Motor strength 5/5 in all extremities. Sensory grossly intact. Psych: Awake, alert, with orientation to person, otherwise disoriented, signs of acute confusion and agitated delirium, mildly agitated on arrival 05:15 ECG was reviewed by the Attending Physician. There is EKG at 5 AM normal sinus rhythm with sinus arrhythmia no ST elevation or depression, no ectopy Vital Signs: 04:42 BP 150 / 80; Pulse 85; Resp 18; Temp 98.5; Pulse Ox 100% ; bp 06:45 BP 113 / 50; Pulse 81; Resp 16; Pulse Ox 96% ; bp 09:46 BP 112 / 81; Pulse 86; Resp 15; Pulse Ox 98% ; jl7 10:38 Temp 98.1(O); iw MDM: 04:51 Patient medically screened. sp4 07:32 ED course: CT head - COMPARISON: None available for comparison FINDINGS: Brain: No sp4 significant white matter changes. No focal mass effect. Coffey-white matter differentiation is within normal limits. No hemorrhage. Ventricles: No ventriculomegaly or midline shift. Extra-axial spaces: No extra-axial collection or hemorrhage. Paranasal sinuses and mastoid air cells: Left maxillary sinus mucosal thickening, which may be chronic. Surgical changes in the right ocular globe Bones: Unremarkable Soft tissues: Unremarkable IMPRESSION: 1. No acute intracranial or extra-axial abnormality. 2. Left maxillary sinus mucosal thickening, which may be chronic. . 08:22 Differential Diagnosis altered mental status, sepsis, flu. Data reviewed: vital signs, sp4 nurses notes, EMS record, old medical records, lab test result(s), EKG, radiologic studies, CT scan. Transition of care: After a detail discussion of the patient's case, care is transferred to Zaki Wade DO. 08:40 Transition of care: Care assumed from Conor Nielsen MD. ms3 09:07 Consideration of Admission/Observation Patient was admitted/placed on observation. ms3 Management of patient was discussed with the following: Hospitalist: Dr Yeboah. I considered the following discharge prescriptions or medication management in the emergency department Medications were administered in the Emergency Department. See MAR. Independent interpretation of the following test(s) in the Emergency Department CT Scan: My interpretation is CT Head images reviewed by me do not reveal ICH. Counseling: I had a detailed discussion with the patient and/or guardian regarding the historical points, exam findings, and any diagnostic results supporting the discharge/admit diagnosis, lab results, radiology results, the need for further work-up and treatment in the hospital. 03/21 04:48 Order name: Acetaminophen; Complete Time: 07: sp4 03/21 04:48 Order name: Basic Metabolic Panel; Complete Time: 07: sp4 03/21 04:48 Order name: CBC with Diff; Complete Time: 05:56 sp4 03/21 04:48 Order name: ETOH Level; Complete Time: 07: sp4 03/21 04:48 Order name: Hepatic Function; Complete Time: 07: sp4 03/21 04:48 Order name: PT-INR; Complete Time: 05:56 sp4 03/21 04:48 Order name: Ptt, Activated; Complete Time: 05:56 sp4 03/21 04:48 Order name: Salicylate; Complete Time: 07:31 sp4 03/21 04:48 Order name: Urinalysis w/ reflexes; Complete Time: 08:22 sp4 03/21 04:48 Order name: Urine Drug Screen; Complete Time: 08:22 sp4 03/21 04:49 Order name: Blood Culture Adult (2) [facility] 03/21 04:49 Order name: Lactate w/ 2H reflex if indic.; Complete Time: 05:56 4 03/21 04:49 Order name: AMMONIA; Complete Time: 05:56 sp4 03/21 04:49 Order name: CRP; Complete Time: 07: 4 03/21 04:49 Order name: TSH; Complete Time: 07: sp4 03/21 04:49 Order name: T4 Free; Complete Time: 07:31 sp4 03/21 04:48 Order name: CT Head Brain wo Cont [facility] 03/21 10:28 Order name: Abdomen EDMO 03/21 04:48 Order name: EKG; Complete Time: 04:49 03/21 04:48 Order name: EKG - Nurse/Tech; Complete Time: 05:26 4 03/21 04:48 Order name: IV Saline Lock; Complete Time: 05: 03/21 04:48 Order name: Labs collected and sent; Complete Time: 05:26 03/21 04:48 Order name: Suicide Screening ([place]); Complete Time: 04:52 sp4 EC:15 Rate is 84 beats/min. Rhythm is regular, Normal Sinus Rhythm. QRS [place] is Normal. [place] sp4 interval is normal. QRS interval is normal. QT interval is normal. No Q waves. T waves are Normal. No ST changes noted. Clinical impression: No evidence of ischemia. Interpreted by me. Reviewed by me. Administered Medications: 04:46 Drug: HALdol (as decanoate) IM 10 mg IM once Route: IM; Site: right vastus lateralis; bp 04:46 Drug: LORazepam IM 2 mg IM once Route: IM; Site: right deltoid; bp 05:23 Drug: NS 0.9% IV 1000 ml IV at 1 bolus Per protocol; 1000 mL bolus Route: IV; Rate: 1 bp bolus; Site: right forearm; 05:23 Drug: Thiamine IV 100 mg IV at bolus once Route: IV; Rate: bolus; Site: right forearm; bp Disposition Summary: 03/21/23 09:07 Hospitalization Ordered Notes: Hospitalization Status: Observation ms3 Provider: Lorene Yeboah ms3 Location: Telemetry/MedSurg (observation) ms3 Condition: Stable ms3 Problem: new ms3 Symptoms: are unchanged ms3 Bed/Room Type: Standard ms3 Room Assignment: 223(03/21/23 10:03) bd Diagnosis - Altered mental status, unspecified ms3 Forms: - Medication Reconciliation Form ms3 - SBAR form ms3 - Leadership Thank You Letter ms3 Signatures: Dispatcher [employer] EDMS Constanza Hanna Brian, YANICK RN Zaki Baca DO DO ms3 Conor Nielsen MD MD sp4 Corrections: (The following items were deleted from the chart) 10:03 09:07 ms3 bd 10:28 10:22 Abdomen Pelvis W/Wo Con+CT.RAD.BRZ ordered. EDMS EDMS
--- NOTE | 2023-03-21 09:08 | ER ---
Nurse's Notes 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 Coronavirus screen: At this time, the client does not indicate any symptoms associated with coronavirus-19. Ebola Screen: No symptoms or risks identified at this time. Initial Sepsis Screen: Does the patient meet any 2 criteria? Altered Mental Status. No. Patient's initial sepsis screen is negative. Does the patient have a suspected source of infection? No. Patient's initial sepsis screen is negative. Risk Assessment: Do you want to hurt yourself or someone else? Patient reports no desire to harm self or others. Onset of symptoms is unknown. Care prior to arrival: Glucose check: 123. 04:42 Method Of Arrival: EMS: [facility] bp 04:42 Acuity: KAY 2 bp Triage Assessment: 04:44 General: Appears unkempt, Behavior is agitated, anxious. Pain: Unable to use pain bp scale. Patient is disoriented. EENT: No deficits noted. Neuro: Level of Consciousness is awake, confused, Oriented to none. Historical: - Allergies: 04:44 Cipro; bp 04:44 Codeine; bp - PMHx: 04:44 Diverticulitis; Hypercholesterolemia; Myocardial infarction; bp - PSHx: 04:44 Cholecystectomy; Stented artery; bp - Immunization history:: Adult Immunizations unknown. - Social history:: Smoking status: unknown. - Family history:: not pertinent. Screenin:46 [facility] ED Fall Risk Assessment (Adult) History of falling in the last 3 months, bp including since admission No falls in past 3 months (0 pts). Abuse screen: Denies threats or abuse. Denies injuries from another. Nutritional screening: No deficits noted. Tuberculosis screening: No symptoms or risk factors identified. Assessment: 04:45 General: SEE TRIAGE. bp 06:45 Reassessment: Patient appears in no apparent distress at this time. bp 10:18 Reassessment: Patient appears in no apparent distress at this time. Patient and/or iw family updated on plan of care and expected duration. Pain level reassessed. Patient is alert, oriented x 3, equal unlabored respirations, skin warm/dry/pink. 10:24 Reassessment: attempt to give report, no answer [phone]. iw 11:00 Reassessment: called report, will wait for CT results before transporting upstairs. iw Vital Signs: 04:42 BP 150 / 80; Pulse 85; Resp 18; Temp 98.5; Pulse Ox 100% ; bp 06:45 BP 113 / 50; Pulse 81; Resp 16; Pulse Ox 96% ; bp 09:46 BP 112 / 81; Pulse 86; Resp 15; Pulse Ox 98% ; jl7 10:38 Temp 98.1(O); iw ED Course: 04:42 Patient arrived in ED. rv1 04:42 Brent Hayden, RN is Primary Nurse. bp 04:44 Triage completed. bp 04:44 Arm band placed on. bp 04:46 Patient has correct armband on for positive identification. Bed in low position. Call bp light in reach. Side rails up X2. Provided Education on: N/A. 04:47 Conor Nielsen MD is Attending Physician. sp4 05:15 Inserted saline lock: 20 gauge in right forearm, using aseptic technique. Blood bp collected. 05:23 CT Head Brain wo Cont Sent. bp 05:32 CT Head Brain wo Cont In Process Unspecified. EDMS 07:53 Urinalysis w/ reflexes Sent. ds4 07:53 Urine Drug Screen Sent. ds4 08:40 Attending Physician role handed off by Conor Nielsen MD ms3 08:40 Zaki Wade DO is Attending Physician. ms3 09:07 Lorene Yeboah MD is Hospitalizing Provider. ms3 10:39 Abdomen In Process Unspecified. EDMS 12:32 No provider procedures requiring assistance completed. Patient admitted, IV remains in iw place. Administered Medications: 04:46 Drug: HALdol (as decanoate) IM 10 mg IM once Route: IM; Site: right vastus lateralis; bp 04:46 Drug: LORazepam IM 2 mg IM once Route: IM; Site: right deltoid; bp 05:23 Drug: NS 0.9% IV 1000 ml IV at 1 bolus Per protocol; 1000 mL bolus Route: IV; Rate: 1 bp bolus; Site: right forearm; 05:23 Drug: Thiamine IV 100 mg IV at bolus once Route: IV; Rate: bolus; Site: right forearm; bp Outcome: 09:07 Decision to Hospitalize by Provider. ms3 12:31 Admitted to Med/surg accompanied by tech, via stretcher, Report called to YANICK Black iw 12:31 Condition: good 12:31 Instructed on the need for admit, Demonstrated understanding of instructions, 12:32 Patient left the ED. iw Signatures: Dispatcher [employer] EDLorri Flaherty, YANICK HERNDON iw Jw Sanchez ds4 Julio Diop RN RN jl7 Brent Hayden RN RN bp Zaki Wade DO DO ms3 CarreraDeborah rv1 Conor Nielsen MD MD sp4
--- NOTE | 2023-03-21 09:47 | P.HP ---
Certification for Inpatient Patient admitted to: Inpatient With expected LOS: <2 Midnights Patient will require the following post-hospital care: None Practitioner: I am a practitioner with admitting privileges, knowledge of patient current condition, hospital course, and medical plan of care. Services: Services provided to patient in accordance with Admission requirements found in Title 42 Section 412.3 of the Code of Federal Regulations Patient History Date of Service: 03/21/23 History of Present Illness: 73-year-old male patient with a history of hypertension, CAD, hyperlipidemia, diverticulitis presented to the emergency room with altered mental status. PER EMS, "walking about naked in his apartment causing disturbance and turning off his father's oxygen. Patient resides in the same apartment with his father and son. patient is confused he is not answering questions appropriately. 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 patient reported loose stool this a.m., no reported fever, abdominal pain, nausea vomiting, abdominal tenderness on exam Recent hospital discharge 03/15 after being treated for diverticulitis. CT of the abdomen showed CT abdomen shows diverticulitis with an intramural abscess. diverticulitis and intramural abscess. Patient was discharged home on antibiotics for 2 weeks. Discharge prescriptions Cipro and Flagyl. Unsure if patient was on medications after discharge. Per prior notes, prior colonoscopy initial colonoscopy done in [place] reviewed an outpatient by trimming assembler for management recommendation for his recurrent diverticulitis episode. patient returned to the emergency room 03/21 with new onset confusion. Plan to admit for metabolic encephalopathy, CT abdomen shows diverticulitis with an intramural abscess. Laboratory evaluation mild hypokalemia potassium 3.4, elevated CRP 19.40, hypoalbumin 3.0 TSH normal, free T4 elevated 1.62, no leukocytosis left shift 75.8 CT of the head no acute abnormality, left maxillary sinus mucosal thickening Amilcar which may be chronic repeat CT of the abdomen ordered confused, talking out of his head. ER evaluation patient is confused, not answering questions appropriately Allergies ciprofloxacin [From Cipro] Allergy (Verified 03/13/23 22:49) Hives/Rash codeine Allergy (Verified 03/13/23 22:49) Itching Home Medications: Aspirin Chewable [Aspirin Chewable*] 1 tab PO DAILY 03/14/23 Famotidine [Pepcid*] 1 tab PO BID 03/14/23 Nitroglycerin [Nitrostat*] 1 tab SL UD 03/14/23 Simvastatin [Zocor] 1 tab PO BEDTIME 03/14/23 carvediloL [Carvedilol] 1 tab PO BID 03/14/23 levoFLOXacin [Levaquin] 500 mg PO DAILY #12 tab 03/15/23 metroNIDAZOLE [Flagyl] 500 mg PO TID #36 03/15/23 - Past Medical/Surgical History Diabetic: No -: HTN -: CAD -: HLD -: Cholecystectomy -: CABG 2018 -: cataract sx Psychosocial/ Personal History: Lives in home with family - Social History Alcohol use: Yes CD- Drugs: Yes Caffeine use: Yes Review of Systems 10-point ROS is otherwise unremarkable Physical Examination - Physical Exam General: Alert, In no apparent distress, Confused HEENT: Atraumatic, Normocephalic Neck: Supple, 2+ carotid pulse no bruit Respiratory: Clear to auscultation bilaterally, Normal air movement Cardiovascular: No edema, Normal pulses Capillary refill: <2 Seconds Gastrointestinal: Normal bowel sounds, Soft and benign Musculoskeletal: No clubbing, No swelling Integumentary: No rashes, No breakdown Neurological: Normal speech, Normal strength at 5/5 x4 extr, Other (AOx1 ) - Studies Laboratory Data (last 24 hrs) 03/21/23 03/21/23 03/21/23 05:15 05:15 05:15 WBC 7.30 Hgb 13.6 Hct 40.5 Plt Count 260 PT 14.5 H INR 1.32 APTT 30.6 Sodium 137 Potassium 3.4 L BUN 14 Creatinine 0.76 Glucose 130 H Total Bilirubin 0.3 AST 15 ALT 18 Alkaline Phosphatase 64 Assessment and Plan - Plan Assessment plan Metabolic encephalopathy , "walking about naked in his apartment causing disturbance and turning off his father's oxygen. Patient resides in the same apartment with his father and son. patient is confused he is not answering questions appropriately. 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 RPR ordered Speech eval, MRI, CT of the head fall precaution Recent discharge 1121 for diverticulitis patient returned to the emergency room 03/21 with new onset confusion. CT of the head IMPRESSION: 1. No acute intracranial or extra-axial abnormality.2. Left maxillary sinus mucosal thickening, which may be chronic. elevated CRP 19.40, hypoalbumin 3.0 TSH normal, free T4 elevated 1.62, no leukocytosis left shift 75.8 CT of the head no acute abnormality, left maxillary sinus mucosal thickening Amilcar which may be chronic repeat HX diverticulitis Resume ceftriaxone, Flagyl Recent hospital discharge 03/15 after being treated for diverticulitis. CT of the abdomen showed CT abdomen shows diverticulitis with an intramural abscess. diverticulitis and intramural abscess. Patient was discharged home on antibiotics for 2 weeks. Discharge prescriptions Cipro and Flagyl. Unsure if patient was on medications after discharge. Per prior notes, prior colonoscopy initial colonoscopy done in [place] reviewed an outpatient by trimming assembler for management recommendation for his recurrent diverticulitis episode. 03/21 CT of the abdomen pelvis repeated IMPRESSION: 10-11 cm of significantly thickened sigmoid colon or numerous diverticular present is again seen. Mild improvement in the intramural fluid collection previously noted. Followup colonoscopy would be suggested following appropriate therapy to further evaluate this region of the colon. Moderate upstream stool retention is seen.Bilateral renal stones without hydronephrosis. Hypokalemia mild hypokalemia potassium 3.4, Essential hypertension CAD hyperlipidemia Resume appropriate home medications Full code Cardiac diet DVT Lovenox Discharge Plan: Home Plan to discharge in: 48 Hours - Advance Directives Does patient have a Living Will: No Does patient have a Durable POA for Healthcare: No - Code Status/Comfort Care Code Status: Full Code Physician Review: Patient Assessed, Agree with Above Assessment and Plan Critical Care: No Time Spent Managing Pts Care (In Minutes): 50
[2023-03-21] MEDS ORDERED: Levofloxacin500mg IV 500 MG/100 ML BAG IV SCH (11:00)
--- NOTE | 2023-03-21 11:03 | RAD REPORT ---
EXAM DESCRIPTION: CTAbdomen Pelvis W Contrast - 03/21/2023 10:39 am CLINICAL HISTORY: Abdominal pain. recent abd absecc COMPARISON: Angio Aorta For Dissection dated 03/13/2023 TECHNIQUE: Biphasic CT imaging of the abdomen and pelvis was performed with 100 ml non-ionic IV cont rast. All CT scans are performed using dose optimization technique as appropriate and may include automated exposure control or mA/KV adjustment according to patient size. FINDINGS: Inferior lung bases are mildly emphysematous but clear. Mild fatty liver. Tiny low-density lesion right lobe of the liver is likely benign. Cholecystectomy c lips. The spleen, pancreas, adrenal glands are normal. Bilateral renal cysts are present. Small stone is present left kidney inferiorly without hydronephrosis. 8 mm stone inferior calyx right kidney wit hout hydronephrosis. No bowel obstruction, free air, free fluid or abscess. There is a 10-11 cm length of the sigmoid colo n that appears thickened several diverticular present in this region. Previously noted intramural abs cess appears less apparent on today's study but small amount of fluid remains present in the region. The appendix is normal. No evidence of significant lymphadenopathy. Moderate lumbar degenerative changes. IMPRESSION: 10-11 cm of significantly thickened sigmoid colon or numerous diverticular present is ag ain seen. Mild improvement in the intramural fluid collection previously noted. Followup colonoscopy would be suggested following appropriate therapy to further evaluate this region of the colon. Modera te upstream stool retention is seen. Bilateral renal stones without hydronephrosis.
--- NOTE | 2023-03-21 13:56 | RAD REPORT ---
EXAM DESCRIPTION: Head Brain Wo Cont CLINICAL HISTORY: CONFUSED TECHNIQUE: Contiguous axial CT images obtained through the brain without IV contrast. Coronal and sa gittal reformatted images were provided. This exam was performed according to our departmental dose-optimization program, which includes autom ated exposure control, adjustment of the mA and/or kV according to patient size and/or use of iterati ve reconstruction technique. COMPARISON: None available for comparison FINDINGS: Brain: No significant white matter changes. No focal mass effect. Coffey-white matter differ entiation is within normal limits. No hemorrhage. Ventricles: No ventriculomegaly or midline shift. Extra-axial spaces: No extra-axial collection or hemorrhage. Paranasal sinuses and mastoid air cells: Left maxillary sinus mucosal thickening, which may be chroni c. Surgical changes in the right ocular globe Bones: Unremarkable Soft tissues: Unremarkable IMPRESSION: 1. No acute intracranial or extra-axial abnormality. 2. Left maxillary sinus mucosal thickening, which may be chronic. Electronically signed by: Taj Barnett MD 03/21/2023 06:36 AM PRECISION MACHINIST Due to temporary technical issues with the PACS/Fluency reporting system, reports are being signed by the in house radiologist without review as a courtesy to ensure prompt reporting. The interpreting r adiologist is fully responsible for the content of the report.
[2023-03-21 15:57] VITALS: BMI 19.0
[2023-03-21] MEDS: CEFTRIAXONE 1,000 MG in NA CHLORIDE 0.9% 50 ML IVPB SCH (16:41)
[2023-03-21] MEDS ORDERED: METRONIDAZOLE 500mg IVPB 500 MG/100 ML BAG IV SCH (17:00)
[2023-03-21] MEDS ORDERED: ONDANSETRON 4 MG/2 ML VIAL IV PRN (18:19)
[2023-03-21] MEDS ORDERED: POLYETHYL GLY 3350 17 GM/DOSE PO PRN (18:19)
[2023-03-21] MEDS ORDERED: ACETAMINOPHEN 500 MG TAB PO PRN (18:19)
[2023-03-21] MEDS ORDERED: LORazepam 2 MG/ML VIAL IV ONE (18:33)
[2023-03-21] MEDS: METRONIDAZOLE 500mg IVPB 500 MG/100 ML BAG IV SCH (18:39)
[2023-03-22] MEDS: METRONIDAZOLE 500mg IVPB 500 MG/100 ML BAG IV SCH ×3 (02:27→09:00)
[2023-03-22 03:47] LABS: Absolute Lymphocytes (CBC) 1.4 K/uL (0.7-4.9); Lymphocytes % 17.6 % (15.3-44.8); MCV 90.9 fL (80-100); MPV 8.6 fL (7.6-11.3); Platelets 276 thou/uL (152-406)
[2023-03-22 04:07] LABS: Magnesium 2.2 mg/dL (1.6-2.4); Potassium 4.2 mEq/L (3.5-5.1)
--- NOTE | 2023-03-22 06:46 | P.PN ---
Subjective Date of Service: 03/22/23 Chief Complaint: confusion Subjective: Improving Review of Systems 10-point ROS is otherwise unremarkable Physical Examination - Vital Signs Temperature: 97.9 F Blood Pressure: 126/78 Pulse: 93 Respirations: 18 Pulse Ox (%): 96 - Physical Exam General: Alert, In no apparent distress, Oriented x2 HEENT: Atraumatic, Normocephalic Neck: Supple, 2+ carotid pulse no bruit Respiratory: Clear to auscultation bilaterally, Normal air movement Cardiovascular: No edema, Normal pulses Capillary refill: <2 Seconds Gastrointestinal: Normal bowel sounds, Soft and benign Musculoskeletal: No clubbing, No swelling Integumentary: No rashes, No breakdown Neurological: Normal speech, Other (mild confusion) Assessment And Plan - Plan Assessment plan Metabolic encephalopathy , "walking about naked in his apartment causing disturbance and turning off his father's oxygen. Patient resides in the same apartment with his father and son. patient is confused he is not answering questions appropriately. 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 RPR ordered Speech eval, MRI, CT of the head fall precaution Recent discharge 1121 for diverticulitis patient returned to the emergency room 03/21 with new onset confusion. CT of the head IMPRESSION: 1. No acute intracranial or extra-axial abnormality.2. Left maxillary sinus mucosal thickening, which may be chronic. elevated CRP 19.40, hypoalbumin 3.0 TSH normal, free T4 elevated 1.62, no leukocytosis left shift 75.8 CT of the head no acute abnormality, left maxillary sinus mucosal thickening Amilcar which may be chronic repeat HX diverticulitis Resume ceftriaxone, Flagyl Recent hospital discharge 03/15 after being treated for diverticulitis. CT of the abdomen showed CT abdomen shows diverticulitis with an intramural abscess. diverticulitis and intramural abscess. Patient was discharged home on antibiotics for 2 weeks. Discharge prescriptions Cipro and Flagyl. Unsure if patient was on medications after discharge. Per prior notes, prior colonoscopy initial colonoscopy done in [place] reviewed an outpatient by washroom attendant for management recommendation for his recurrent diverticulitis episode. 03/21 CT of the abdomen pelvis repeated IMPRESSION: 10-11 cm of significantly thickened sigmoid colon or numerous diverticular present is again seen. Mild improvement in the intramural fluid collection previously noted. Followup colonoscopy would be suggested following appropriate therapy to further evaluate this region of the colon. Moderate upstream stool retention is seen.Bilateral renal stones without hydronephrosis. Hypokalemia mild hypokalemia potassium 3.4, Essential hypertension CAD hyperlipidemia Resume appropriate home medications Full code Cardiac diet DVT Lovenox Physician Review: Patient Assessed, Agree with Above Assessment and Plan Critical Care: No Time Spent Managing PTS Care (In Minutes): 35
[2023-03-22] MEDS: CEFTRIAXONE 1,000 MG in NA CHLORIDE 0.9% 50 ML IVPB SCH ×2 (08:35→09:00)
--- NOTE | 2023-03-22 10:28 | P.DS ---
Admission Date: 03/21/23 Discharge Date: 03/22/23 Disposition: ROUTINE DISCHARGE Discharge Condition: FAIR Brief History of Present Illness: 73-year-old male patient with a history of hypertension, CAD, hyperlipidemia, diverticulitis presented to the emergency room with altered mental status. PER EMS, "walking about naked in his apartment causing disturbance and turning off his father's oxygen. Patient resides in the same apartment with his father and son. patient is confused he is not answering questions appropriately. 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 patient reported loose stool this a.m., no reported fever, abdominal pain, nausea vomiting, abdominal tenderness on exam 03/22 Alert and oriented on exam today, tolerating diet. Recent hospital discharge 03/15 after being treated for diverticulitis. CT of the abdomen showed CT abdomen shows diverticulitis with an intramural abscess. diverticulitis and intramural abscess. Patient was discharged home on antibiotics for 2 weeks. Discharge prescriptions Cipro and Flagyl. Unsure if patient was on medications after discharge. Per prior notes, prior colonoscopy initial colonoscopy done in [place] reviewed an outpatient by hammerer tab for management recommendation for his recurrent diverticulitis episode. patient returned to the emergency room 03/21 with new onset confusion. Plan to admit for metabolic encephalopathy, CT abdomen shows diverticulitis with an intramural abscess. Laboratory evaluation mild hypokalemia potassium 3.4, elevated CRP 19.40, hypoalbumin 3.0 TSH normal, free T4 elevated 1.62, no leukocytosis left shift 75.8 CT of the head no acute abnormality, left maxillary sinus mucosal thickening Amilcar which may be chronic repeat CT of the abdomen ordered confused, talking out of his head. ER evaluation patient is confused, not answering questions appropriately Hospital Course: He needs to continue antibitics from prev admission. Patient states he is taking, will finish was prescribed. He responded well to antibiotic therapy and bowel rest for a couple of days. He is stable now and is tolerated oral feeds today. His pain control is much adequate with present regimen. He is discharged to continue oral antibiotic as ciprofloxacin and Flagyl for 14 complete days and to follow-up with surgeon Dr Webster, and hammerer tab Dr. Sargent as scheduled on outpatient. He will also have his initial colonoscopy done in [place] reviewed an outpatient by hammerer tab for management recommendation for his recurrent diver ticulitis episode. Vital Signs/Physical Exam: Temp Pulse Resp BP Pulse Ox 98.5 F 81 18 130/78 98 03/22/23 08:00 03/22/23 08:00 03/22/23 08:00 03/22/23 08:00 03/22/23 08:00 Laboratory Data at Discharge: WBC 8.00 thou/uL (4.3-10.9) 03/22/23 03:13 Hgb 13.3 g/dL (13.6-17.9) L 03/22/23 03:13 Hct 40.0 % (39.6-49.0) 03/22/23 03:13 Plt Count 276 thou/uL (152-406) 03/22/23 03:13 PT 14.5 SECONDS (9.5-12.5) H 03/21/23 05:15 INR 1.32 03/21/23 05:15 APTT 30.6 SECONDS (24.3-36.9) 03/21/23 05:15 Sodium 141 mEq/L (136-145) 03/22/23 03:13 Potassium 4.2 mEq/L (3.5-5.1) D 03/22/23 03:13 BUN 13 mg/dL (7-18) 03/22/23 03:13 Creatinine 0.82 mg/dL (0.70-1.30) 03/22/23 03:13 Glucose 90 mg/dL (74-106) 03/22/23 03:13 Magnesium 2.2 mg/dL (1.6-2.4) 03/22/23 03:13 Total Bilirubin 0.3 mg/dL (0.2-1.0) 03/21/23 05:15 AST 15 U/L (15-37) 03/21/23 05:15 ALT 18 U/L (16-61) 03/21/23 05:15 Alkaline Phosphatase 64 U/L (45-117) 03/21/23 05:15 Home Medications: Aspirin Chewable [Aspirin Chewable*] 1 tab PO DAILY 03/14/23 Famotidine [Pepcid*] 1 tab PO BID 03/14/23 Nitroglycerin [Nitrostat*] 1 tab SL UD 03/14/23 Simvastatin [Zocor] 1 tab PO BEDTIME 11/20/23 carvediloL [Carvedilol] 1 tab PO BID 03/14/23 levoFLOXacin [Levaquin] 500 mg PO DAILY #12 tab 03/15/23 metroNIDAZOLE [Flagyl] 500 mg PO TID #36 03/15/23 Physician Discharge Instructions: Physician Discharge Instructions: Take prior antibiotics as presribed -DC IV and DC home -Follow-up with PCP in 1 to 2 weeks -Please call Dr. Yeboah at [phone] if any questions regarding hospital stay -Please call nursing station at [phone] if any nursing or medication questions -Return to the emergency room if symptoms worsen Diet: Low sodium Activity: Fall precautions Followup: NONE,NONE [Primary Care Provider] -
[2023-03-22] MEDS ORDERED: CEFDINIR 300 MG CAP PO ONE (11:15)
[2023-03-22] MEDS ORDERED: metroNIDAZOLE 500 MG TABLET PO ONE (11:15)
[2023-03-22 11:39] VITALS: O2SAT 98
[2023-03-22 13:18] VITALS: BP 126/78; TEMP 97.9
== END 2023-03-22 12:02 | disposition home or self-care (01) | DRG 71 ==
LOC: ERMC 04:31 → ER 04:31 → ERHOLD 10:08 → UNDOADMIN 10:08 → 2ND 12:06
PROVIDERS: ADMIT Hospitalist; ATTEND Hospitalist
DX: G93.41 Metabolic encephalopathy (principal); K57.20 Diverticulitis of large intestine with perforation and abscess without bleeding; E78.00 Pure hypercholesterolemia, unspecified; I10 Essential (primary) hypertension; N20.0 Calculus of kidney; E87.6 Hypokalemia; I25.10 Atherosclerotic heart disease of native coronary artery without angina pectoris; I25.2 Old myocardial infarction; Z95.1 Presence of aortocoronary bypass graft; Z88.5 Allergy status to narcotic agent; Z88.1 Allergy status to other antibiotic agents; Z79.82 Long term (current) use of aspirin; Z90.49 Acquired absence of other specified parts of digestive tract; Z79.02 Long term (current) use of antithrombotics/antiplatelets; Z79.899 Other long term (current) drug therapy
CPT/HCPCS: 36415; 70450; 74177; 80048; 80076; 80143; 80179; 80307; 81001; 82077; 82140; 83605; 83735; 84439; 84443; 85025; 85610; 85730; 86140; 87040; 93005; 96372; 96374; 99285; J0696; J1630; J3411; J7030; Q9967

== ENCOUNTER 2023-03-29 13:17 | Emergency (ER) | payer OTHER ==
--- NOTE | 2023-03-29 13:53 | RAD REPORT ---
EXAM DESCRIPTION: CT - Head Brain Wo Cont - 03/29/2023 1:37 pm CLINICAL HISTORY: Dizziness COMPARISON: March 21, 2023 TECHNIQUE: Computed axial tomography of the head was obtained. IV contrast was not requested. All CT scans are performed using dose optimization technique as appropriate and may include automated exposure control or mA/KV adjustment according to patient size. FINDINGS: An intracranial bleed is not seen The ventricles are normal in caliber No extra-axial fluid collection is noted. No significant hyperdensity within the brain noted. Fluid within the sinuses/ mastoids is not seen. IMPRESSION: No acute intracranial abnormality is seen If patient's symptoms persist MRI of the brain would be recommended
[2023-03-29 14:00] LABS: Absolute Lymphocytes (CBC) 1.2 K/uL (0.7-4.9); Hematocrit 39.8 % (39.6-49.0); Lymphocytes % 13.2 % (15.3-44.8); MCV 92.5 fL (80-100); MPV 8.5 fL (7.6-11.3); Platelets 308 thou/uL (152-406)
[2023-03-29] MEDS ORDERED: ONDANSETRON 4 MG/2 ML VIAL ONE (14:05)
[2023-03-29 15:11] LABS: Albumin 3.3 g/dL (3.4-5.0); Bilirubin Direct 0.1 mg/dL (0-0.2); Bilirubin Indirect, Calculated 0.1 mg/dL (0.2-0.8); Bilirubin Total 0.2 mg/dL (0.2-1.0); Magnesium 2.2 mg/dL (1.6-2.4)
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
--- NOTE | 2023-03-29 15:16 | ER ---
Nurse's Notes [facility] Name: Soco Gillis Jr Age: 73 yrs Sex: Male : 1950 Arrival Date: 03/29/2023 Time: 13:17 Bed 18 Private MD: Diagnosis: Marijuana induced anxiety Presentation: 03/29 13:20 Chief complaint: EMS states: Pt smoked some, got dizzy, and called EMS. rs5 13:20 Coronavirus screen: At this time, the client does not indicate any symptoms associated rs5 with coronavirus-19. Ebola Screen: No symptoms or risks identified at this time. Initial Sepsis Screen: Does the patient meet any 2 criteria? No. Patient's initial sepsis screen is negative. Does the patient have a suspected source of infection? No. Patient's initial sepsis screen is negative. Risk Assessment: Do you want to hurt yourself or someone else? Patient reports no desire to harm self or others. Onset of symptoms was March 29, 2023 at 13:00. 13:20 Method Of Arrival: EMS: [facility] rs5 13:20 Acuity: KAY 4 rs5 Triage Assessment: 13:26 General: Appears in no apparent distress. uncomfortable, Behavior is cooperative. Pain: rs5 Denies pain. Historical: - Allergies: 13:26 Cipro; rs5 13:26 Codeine; rs5 - PMHx: 13:26 Diverticulitis; Hypercholesterolemia; Myocardial infarction; rs5 - PSHx: 13:26 Cholecystectomy; Stented artery; Right eye surger (Stented artery); rs5 - Immunization history:: Adult Immunizations unknown. - Social history:: Smoking status: unknown. Screenin:20 [facility] ED Fall Risk Assessment (Adult) History of falling in the last 3 months, rs5 including since admission No falls in past 3 months (0 pts) Confusion or Disorientation No (0 pts) Intoxicated or Sedated Yes (3 pts) Impaired Gait No (0 pts) Mobility Assist Device Used No (0 pt) Altered Elimination No (0 pt) Score/Fall Risk Level 3 or more points = High Risk Oriented to surroundings, Maintained a safe environment. 13:20 Abuse screen: Denies threats or abuse. Nutritional screening: No deficits noted. rs5 Tuberculosis screening: No symptoms or risk factors identified. Assessment: 13:20 General: Appears in no apparent distress. uncomfortable, Behavior is calm, cooperative. rs5 Pain: Denies pain. Neuro: Level of Consciousness is awake, alert, obeys commands, Oriented to person, place, time, situation, Tectonophysicist are equal bilaterally Moves all extremities. Speech is normal, Facial symmetry appears normal, Intact Reports dizziness. 13:20 Cardiovascular: Denies chest pain, Heart tones S1 S2 present Patient's skin is warm and rs5 dry. Rhythm is regular. Respiratory: Airway is patent Respiratory effort is even, unlabored, Respiratory pattern is regular, symmetrical, Breath sounds are clear bilaterally. GI: Abdomen is round non-distended, Bowel sounds present X 4 quads. Abd is soft and non tender X 4 quads. : No signs and/or symptoms were reported regarding the genitourinary system. EENT: No signs and/or symptoms were reported regarding the EENT system. Derm: Skin is intact, Skin is pink, warm \T\ dry. Musculoskeletal: Range of motion: intact in all extremities. 13:33 Reassessment: Pt gone for CT scan. rs5 14:40 Reassessment: Patient and/or family updated on plan of care and expected duration. Pain rs5 level reassessed. Patient is alert, oriented x 3, equal unlabored respirations, skin warm/dry/pink. 15:42 Reassessment: No changes from previously documented assessment. rs5 Vital Signs: 13:20 BP 153 / 93; Pulse 89; Resp 17; Temp 98; Pulse Ox 99% on R/A; rs5 14:09 BP 143 / 97; Pulse 80; Resp 18; Temp 98(O); Pulse Ox 99% on R/A; rs5 15:30 BP 143 / 97; Pulse 77; Resp 17; Pulse Ox 99% on R/A; rs5 ED Course: 13:18 Patient arrived in ED. aa5 13:20 Aleksandar Lovett MD is Attending Physician. sp3 13:20 Patient has correct armband on for positive identification. Bed in low position. Call rs5 light in reach. Side rails up X2. 13:24 Monico Melo, RN is Primary Nurse. rs5 13:26 Triage completed. rs5 13:39 CT Head Brain wo Cont In Process Unspecified. EDMS 13:40 Inserted saline lock: 22 gauge in right forearm, using aseptic technique. rs5 15:43 No provider procedures requiring assistance completed. IV discontinued, intact, rs5 bleeding controlled, No redness/swelling at site. Pressure dressing applied. Administered Medications: 13:45 Drug: Ondansetron IVP 4 mg IVP once; over 2 minutes Route: IVP; Site: right antecubital;rs5 14:02 Follow up: Response: No adverse reaction; Nausea is decreased rs5 Medication: 14:09 VIS not applicable for this client. rs5 Outcome: 15:15 Discharge ordered by . sp3 15:43 Discharged to home ambulatory, rs5 15:43 Condition: stable 15:43 Discharge instructions given to patient, Instructed on discharge instructions, Demonstrated understanding of instructions, 15:44 Patient left the ED. rs5 Signatures: Dispatcher [employer] EDYessenia Fowler, RN RN aa5 Aleksandar Lovett MD MD sp3 Monico Melo RN RN rs5
[2023-03-29 15:54] VITALS: TEMP 98; O2SAT 99
[2023-03-29 16:00] VITALS: BP 143/97
== END 2023-03-29 15:44 | disposition home or self-care (01) ==
LOC: ER 13:17
DX: F12.980 Cannabis use, unspecified with anxiety disorder (principal); Z88.1 Allergy status to other antibiotic agents; Z88.5 Allergy status to narcotic agent
CPT/HCPCS: 93005 ×2; 85025; 80048; 36415; 83735; 80076; 84484; 70450; 96374; 99284; J2405

== ENCOUNTER 2023-03-31 17:47 | Emergency (ER) | payer OTHER ==
[2023-03-31 18:24] LABS: Absolute Lymphocytes (CBC) 0.6 K/uL (0.7-4.9); Hematocrit 39.1 % (39.6-49.0); Lymphocytes % 4.5 % (15.3-44.8); MCV 92.2 fL (80-100); MPV 8.2 fL (7.6-11.3); Platelets 244 thou/uL (152-406); RBC Red Blood Cell Count 4.25 M/uL (4.33-5.43)
[2023-03-31] MEDS ORDERED: KETOROLAC 30 MG/ML INJ ONE (18:34)
[2023-03-31] MEDS ORDERED: NA CHLORIDE 0.9% 1,000 ML ONE (18:35)
[2023-03-31] MEDS ORDERED: FAMOTIDINE 20 MG/2 ML VIAL IV ONE (18:35)
[2023-03-31] MEDS ORDERED: ONDANSETRON 4 MG/2 ML VIAL ONE (18:35)
[2023-03-31 18:39] LABS: Albumin 3.1 g/dL (3.4-5.0); Bilirubin Total 0.4 mg/dL (0.2-1.0); Potassium 4.2 mEq/L (3.5-5.1); Protein, Total 6.7 g/dL (6.4-8.2)
--- NOTE | 2023-03-31 19:46 | RAD REPORT ---
EXAM DESCRIPTION: CT - Abdomen Pelvis W Contrast - 03/31/2023 6:53 pm CLINICAL HISTORY: ABD PAIN COMPARISON: Abdomen Pelvis W Contrast dated 03/21/2023 TECHNIQUE: Thin cut axial CT imaging of the abdomen and pelvis was performed following intravenous a dministration of 100 mL Isovue 300. Multiplanar reformats were generated and reviewed. All CT scans are performed using dose optimization technique as appropriate and may include automated exposure control or mA/KV adjustment according to patient size. FINDINGS: No suspicious findings in the lung bases. The liver, spleen, adrenal glands, and pancreas show no suspicious findings. Gallbladder was surgical ly removed. Symmetric renal function is seen with no hydronephrosis or suspicious renal mass. Stable 8 millimeter right lower pole calculus. Stable punctate calcifications in the left mid to lower pole renal parenc hyma. Small fluid density cortical cysts bilaterally, stable. Colonic diverticulosis. Stable segment of wall thickening with mildly increased enhancement involving the proximal sigmoid colon. Ill-defined areas of hypoattenuation within, without a discrete intramur al collection. No free air, free fluid or inflammatory stranding. No hernia, mass or bulky lymphadeno alyssa. The urinary bladder is without significant finding. No suspicious bony findings. IMPRESSION: Stable long segment of wall thickening and mildly increased enhancement involving the pr oximal sigmoid colon, may relate to segmental colitis or incompletely resolved sequelae of diverticul itis. No findings to suggest an intramural abscess at this time. Other stable incidental findings as above.
[2023-03-31 20:05] LABS: Specific Gravity > 1.030 (1.005-1.030); Urine Bacteria None Seen /HPF (<20); Urine Bilirubin NEGATIVE (Negative); Urine Blood Negative (Negative); Urine Clarity Turbid (Clear); Urine Color Light-Yellow (Yellow); Urine Glucose NEGATIVE (Negative); Urine Protein NEGATIVE (Negative); Urine RBC <5 /HPF (None Seen); Urine Urobilinogen Normal (Normal)
--- NOTE | 2023-03-31 20:17 | ER ---
Nurse's Notes [facility] Name: Soco Gillis Jr Age: 73 yrs Sex: Male : 1950 Arrival Date: 03/31/2023 Time: 17:47 Bed 13 Private MD: Diagnosis: Diverticulitis of large intestine without perforation or abscess with bleeding Presentation: 03/31 17:56 Chief complaint: EMS states: suprapubic pain and diarrhea since this morning. Ebola eh3 Screen: No symptoms or risks identified at this time. Risk Assessment: Do you want to hurt yourself or someone else? Patient reports no desire to harm self or others. Onset of symptoms was March 31, 2023. 17:56 Method Of Arrival: EMS: [facility] eh3 17:56 Acuity: KAY 3 eh3 19:30 Coronavirus screen: Client denies travel out of the [place] in the last 14 days. Initial km8 Sepsis Screen: Does the patient meet any 2 criteria? No. Patient's initial sepsis screen is negative. Does the patient have a suspected source of infection? No. Patient's initial sepsis screen is negative. Triage Assessment: 18:00 General: Appears in no apparent distress. uncomfortable, Behavior is cooperative, eh3 anxious. Pain: Complains of pain in suprapubic area, right lower quadrant and left lower quadrant. Neuro: Level of Consciousness is awake, alert, obeys commands, Oriented to person, place, time, situation. Cardiovascular: Capillary refill < 3 seconds Patient's skin is warm and dry. Respiratory: Airway is patent Respiratory effort is even, unlabored, Respiratory pattern is regular, symmetrical. GI: Abdomen is round non-distended, Abd is soft X 4 quads Abdomen is tender to palpation in suprapubic area, right lower quadrant and left lower quadrant Reports diarrhea, nausea. Derm: Skin is pink, warm \T\ dry. Musculoskeletal: Circulation, motion, and sensation intact. Historical: - Allergies: 18:00 Cipro; eh3 18:00 Codeine; eh3 - Home Meds: 18:00 aspirin 81 mg Oral capsule 1 cap daily [Active]; carvedilol 6.25 mg Oral tablet 1 tab 2 eh3 times per day [Active]; famotidine 20 mg Oral tablet 1 tab 2 times per day [Active]; nitroglycerin 0.3 mg SL Tablet 1 tab every 5 minutes for acute episode of anginal pain [Active]; simvastatin 20 mg Oral tablet 1 tab every day at bedtime [Active]; - PMHx: 18:00 Diverticulitis; Hypercholesterolemia; Myocardial infarction; eh3 - PSHx: 18:00 Cholecystectomy; Right eye surger (d ); Stented artery; eh3 - Immunization history:: Adult Immunizations unknown. - Social history:: Smoking status: unknown Patient uses street drugs, marijuana. Screenin:00 [facility] ED Fall Risk Assessment (Adult) Score/Fall Risk Level 0 - 2 = Low Risk. Abuse eh3 screen: Denies threats or abuse. Denies injuries from another. Nutritional screening: No deficits noted. Tuberculosis screening: No symptoms or risk factors identified. Assessment: 18:00 Reassessment: No changes from previously documented assessment. See triage assessment. eh3 GI: Bowel sounds present X 4 quads. 19:00 Reassessment: Patient appears in no apparent distress at this time. Patient and/or [facility] family updated on plan of care and expected duration. Pain level reassessed. Patient is alert, oriented x 3, equal unlabored respirations, skin warm/dry/pink. 20:00 Reassessment: Patient appears in no apparent distress at this time. No changes from km8 previously documented assessment. Patient and/or family updated on plan of care and expected duration. Pain level reassessed. Patient is alert, oriented x 3, equal unlabored respirations, skin warm/dry/pink. 20:52 Reassessment: Patient appears in no apparent distress at this time. No changes from 8 previously documented assessment. Patient and/or family updated on plan of care and expected duration. Pain level reassessed. Patient is alert, oriented x 3, equal unlabored respirations, skin warm/dry/pink. Vital Signs: 18:00 BP 132 / 82; Pulse 78; Resp 18; Temp 98.1(O); Pulse Ox 95% on R/A; eh3 19:35 BP 102 / 70; Pulse 79; Resp 16; Pulse Ox 95% on R/A; km8 20:00 BP 97 / 49; Pulse 80; Resp 16; Pulse Ox 95% on R/A; km8 20:30 BP 95 / 60; Pulse 85; Resp 16; Pulse Ox 95% on R/A; km8 ED Course: 17:53 Patient arrived in ED. iw 17:53 Todd Fields MD is Attending Physician. ec2 17:55 Lorri Plunkett, RN is Primary Nurse. iw 17:56 Irma Robles, RN is Primary Nurse. eh3 17:57 Triage completed. eh3 18:00 Arm band placed on. eh3 18:00 Patient has correct armband on for positive identification. Bed in low position. Call eh3 light in reach. Side rails up X2. Provided Education on: use of call juan. Pulse ox on. NIBP on. 18:00 Maintain EMS IV. Dressing intact. Good blood return noted. Site clean \T\ dry. Gauge \T\ eh 3 site: 18g RFA. 18:54 CT Abd/Pelvis - IV Contrast Only In Process Unspecified. EDMS 19:15 Report given to YANICK Estrada. eh3 20:01 UAM Sent. km8 20:52 No provider procedures requiring assistance completed. IV discontinued, intact, km8 bleeding controlled, No redness/swelling at site. Pressure dressing applied. Administered Medications: 18:25 Drug: NS 0.9% IV 1000 ml IV at 1 bolus Per protocol; 1000 mL bolus Route: IV; Rate: 1 eh3 bolus; Site: left forearm; 20:50 Follow up: IV Status: Order to discontinue infusion; IV Intake: 200ml km8 18:25 Drug: Famotidine IVP 20 mg IVP once; dilute with 10 mL 0.9% NaCl; give over 2 minutes eh3 Route: IVP; Site: left forearm; 19:20 Follow up: Response: No adverse reaction km8 18:25 Drug: TORadol - Ketorolac IVP 15 mg IVP once Route: IVP; Site: left forearm; eh3 19:20 Follow up: Response: No adverse reaction km8 18:25 Drug: Ondansetron IVP 4 mg IVP once; over 2 minutes Route: IVP; Site: left forearm; eh3 19:20 Follow up: Response: No adverse reaction km8 20:50 Drug: Amoxicillin-Clavulanate PO 875 mg PO once Route: PO; km8 20:54 Follow up: Response: Medication administered at discharge. km8 Medication: 20:53 VIS not applicable for this client. km8 Intake: 20:50 IV: 200ml; Total: 200ml. km8 Outcome: 20:16 Discharge ordered by . ec2 20:52 Discharged to home via wheelchair, km8 20:52 Condition: good 20:52 Discharge instructions given to patient, Instructed on discharge instructions, follow up and referral plans. medication usage, Demonstrated understanding of instructions, follow-up care, medications, Prescriptions given X 1, 20:54 Patient left the ED. km8 Signatures: Dispatcher [employer] Lorri Bergeron, YANICK HERNDON Irma Robles RN RN 3 Todd Fields MD MD ec2 Marx, Katie, RN RN km8
--- NOTE | 2023-03-31 20:17 | EDPHYS ---
Physician Documentation [facility] Name: Soco Gillis Jr Age: 73 yrs Sex: Male : 1950 Arrival Date: 03/31/2023 Time: 17:47 Bed 13 Private MD: ED Physician Todd Fields HPI: 03/31 18:09 This 73 yrs old Male presents to ER via EMS with complaints of Abdominal Pain.ec2 18:09 Patient arrives today for evaluation of abdominal pain. Reports a history of some type ec2 of abdominal infection. Patient reports some associated nausea without vomiting. Patient reports no cough and cold symptoms. Reports that he is on some antibiotic however is unsure which 1.. Historical: - Allergies: 18:00 Cipro; eh3 18:00 Codeine; eh3 - Home Meds: 18:00 aspirin 81 mg Oral capsule 1 cap daily [Active]; carvedilol 6.25 mg Oral tablet 1 tab 2 eh3 times per day [Active]; famotidine 20 mg Oral tablet 1 tab 2 times per day [Active]; nitroglycerin 0.3 mg SL Tablet 1 tab every 5 minutes for acute episode of anginal pain [Active]; simvastatin 20 mg Oral tablet 1 tab every day at bedtime [Active]; - PMHx: 18:00 Diverticulitis; Hypercholesterolemia; Myocardial infarction; eh3 - PSHx: 18:00 Cholecystectomy; Right eye surger (d ); Stented artery; eh3 - Immunization history:: Adult Immunizations unknown. - Social history:: Smoking status: unknown Patient uses street drugs, marijuana. ROS: 18:09 Constitutional: as per hpi ec2 Exam: 18:09 Constitutional: GEN: NAD Head: atraumatic Eyes: EOMI Ears: External ears are ec2 normal. CV: regular rate LUNGS: no respiratory distress ABD: non-distended, soft, generally tender, no guarding, not rigid SKIN: no evidence of rashes MSK: no evidence of trauma NEURO: moves all extremities equally Vital Signs: 18:00 BP 132 / 82; Pulse 78; Resp 18; Temp 98.1(O); Pulse Ox 95% on R/A; eh3 19:35 BP 102 / 70; Pulse 79; Resp 16; Pulse Ox 95% on R/A; km8 20:00 BP 97 / 49; Pulse 80; Resp 16; Pulse Ox 95% on R/A; 8 20:30 BP 95 / 60; Pulse 85; Resp 16; Pulse Ox 95% on R/A; km8 MDM: 18:03 Patient medically screened. ec2 18:09 Data reviewed: vital signs. ED course: Patient arrives today for evaluation of ec2 generalized abdominal pain. Examination remarkable for well-appearing nontoxic individual is otherwise in no acute distress with abdominal exam as noted above. Will obtain lab work, urine studies, CT abdomen pelvis, treat the patient symptoms and reassess the patient. Currently considering processes complicated diverticulitis, pancreatitis, UTI. . 18:11 ED course: External record review performed myself, shows that patient was recently ec2 diagnosed with diverticulitis. This was approximately 3 weeks ago, unclear why patient would still be taking antibiotics for this.. 19:01 ED course: CBC is remarkable for slight leukocytosis. Metabolic profile with ec2 appropriate electrolytes and renal function. Lipase within normal ranges. Pending urine study and CAT scan. . 20:10 ED course: Urine is noninfectious appearing. CT abdomen pelvis shows incompletely ec2 resolved diverticulitis, on reassessment patient with markedly improving symptoms. Will give the patient Augmentin and have him follow-up with his primary care doctor.. 12 18:08 Order name: CBC with Diff; Complete Time: 19:01 ec2 1207 18:08 Order name: CMP; Complete Time: 19:01 ec2 03/31 18:08 Order name: Lipase; Complete Time: 19:01 ec2 03/31 18:10 Order name: UAM; Complete Time: 20:10 ec2 07 18:08 Order name: CT Abd/Pelvis - IV Contrast Only; Complete Time: 20:10 ec2 03/31 18:08 Order name: IV Saline Lock; Complete Time: 18:10 ec2 03/31 18:08 Order name: Labs collected and sent; Complete Time: 18:54 ec2 Administered Medications: 18:25 Drug: NS 0.9% IV 1000 ml IV at 1 bolus Per protocol; 1000 mL bolus Route: IV; Rate: 1 eh3 bolus; Site: left forearm; 20:50 Follow up: IV Status: Order to discontinue infusion; IV Intake: 200ml [facility] 18:25 Drug: Famotidine IVP 20 mg IVP once; dilute with 10 mL 0.9% NaCl; give over 2 minutes eh3 Route: IVP; Site: left forearm; 19:20 Follow up: Response: No adverse reaction [facility] 18:25 Drug: TORadol - Ketorolac IVP 15 mg IVP once Route: IVP; Site: left forearm; eh3 19:20 Follow up: Response: No adverse reaction [facility] 18:25 Drug: Ondansetron IVP 4 mg IVP once; over 2 minutes Route: IVP; Site: left forearm; eh3 19:20 Follow up: Response: No adverse reaction 8 20:50 Drug: Amoxicillin-Clavulanate PO 875 mg PO once Route: PO; km8 20:54 Follow up: Response: Medication administered at discharge. 8 Disposition Summary: 03/31/23 20:16 Discharge Ordered Notes: Location: Home ec2 Condition: Stable ec2 Diagnosis - Diverticulitis of large intestine without perforation or abscess with bleeding ec2 Followup: ec2 - With: Private Physician - When: - Reason: Re-evaluation by your physician Discharge Instructions: - Discharge Summary Sheet ec2 - Diverticulitis ec2 Forms: - Medication Reconciliation Form ec2 - Thank You Letter ec2 - Antibiotic Education ec2 - Prescription Opioid Use ec2 - Patient Portal Instructions ec2 - Leadership Thank You Letter ec2 Prescriptions: - Augmentin 875-125 mg Oral Tablet - take 1 tablet ORAL route every 12 hours for 10 days; 20 tablet; Refills: 0, ec2 Product Selection Permitted Signatures: Dispatcher [employer] Irma Hager RN RN 3 Todd Fields MD MD ec2 Natalie Oconnell RN RN km8 Corrections: (The following items were deleted from the chart) 20:16 20:10 ED course: Urine is noninfectious appearing. CT abdomen pelvis shows incompletely ec2 resolved diverticulitis, will give IV antibiotics and admit given the patient persistent symptoms. . ec2
[2023-03-31] MEDS ORDERED: AMOX/K CLAV 875 MG TAB ONE (20:54)
[2023-03-31 21:02] VITALS: TEMP 98.1; O2SAT 95
[2023-03-31 21:06] VITALS: BP 95/60
== END 2023-03-31 20:54 | disposition home or self-care (01) ==
LOC: ER 17:47
DX: K57.32 Diverticulitis of large intestine without perforation or abscess without bleeding (principal); E78.00 Pure hypercholesterolemia, unspecified; I25.2 Old myocardial infarction; Z88.1 Allergy status to other antibiotic agents; Z88.5 Allergy status to narcotic agent; Z79.82 Long term (current) use of aspirin
CPT/HCPCS: 96361; 85025; 81001; 36415; 83690; 80053; 74177; 96375; 96374; 99284; Q9967; J2405; J7030

== ENCOUNTER → 2023-06-21 | Emergency (ER) | payer OTHER ==
[~2023-06-21] MED LIST: ASPIRIN 81 MG CHEWABLE TABLET ONE; ONDANSETRON 4 MG/2 ML VIAL ONE
[2023-06-21 19:23] LABS: Absolute Lymphocytes (CBC) 1.1 K/uL (0.7-4.9); Hematocrit 39.8 % (39.6-49.0); Lymphocytes % 13.1 % (15.3-44.8); MPV 8.5 fL (7.6-11.3); Platelets 169 thou/uL (152-406); RBC Red Blood Cell Count 4.37 M/uL (4.33-5.43)
--- NOTE | 2023-06-21 19:27 | RAD REPORT ---
EXAM DESCRIPTION: RAD - Chest Single View - 06/21/2023 7:20 pm CLINICAL HISTORY: CHEST PAIN COMPARISON: No comparisons FINDINGS: Lines: None. Lungs: No evidence of edema or pneumonia. Apical scarring. Pleural: No significant pleural effusions or pneumothorax. Cardiac: The heart size is within normal limits. Mediastinum: Within normal limits. Bones: No acute fractures. Sternotomy. Rib deformity at the left posterior third rib may be related t o remote trauma. Other: None IMPRESSION: No acute cardiopulmonary disease.
[2023-06-21 20:14] LABS: Potassium 3.9 mEq/L (3.5-5.1); Troponin High Sensitivity 12.5 pg/mL (<58.9)
--- NOTE | 2023-06-21 21:01 | RAD REPORT ---
EXAM DESCRIPTION: CT - Chest For Pe Angio - 06/21/2023 8:46 pm CLINICAL HISTORY: CHEST PAIN COMPARISON: Chest Single View dated 06/21/2023; Abdomen Pelvis W Contrast dated 03/31/2023 TECHNIQUE: Dynamically enhanced axial 3 mm thick images of the chest were obtained during administra tion of <100> mL Isovue 370 IV contrast. Coronal and oblique reconstruction images were generated and reviewed. Exam utilizes a protocol for optimal evaluation of pulmonary arterial tree. Maximum intensity projections 3D imaging was utilized All CT scans are performed using dose optimization technique as appropriate and may include automated exposure control or mA/KV adjustment according to patient size. FINDINGS: Chest Wall: No suspicious thyroid nodules or pathologic lymphadenopathy. Lungs: No acute abnormality. Mild centrilobular emphysema. Pleura: No significant effusions or pneumothorax. Mediastinum/herson: No pathologic lymphadenopathy. Pulmonary arteries/Aorta: No filling defect identified. No aortic aneurysm. Heart: No significant pericardial effusion. Normal heart size. Multi-vessel coronary artery disease. CABG. . Upper abdomen: No acute abnormality. Bones: No acute abnormality. Remote left-sided rib fractures . Multilevel degenerative changes are pr esent in the spine. IMPRESSION: Negative for pulmonary embolism. No acute findings within the chest.
[2023-06-21 21:16] LABS: ALT/SGPT 20 U/L (16-61); AST/SGOT 15 U/L (15-37); Albumin 3.2 g/dL (3.4-5.0); Alkaline Phosphatase 85 U/L (45-117); Bilirubin Total 0.3 mg/dL (0.2-1.0); NT PRO-BNP 586 pg/mL (<125); Protein, Total 7.1 g/dL (6.4-8.2)
[2023-06-21 21:17] LABS: Bilirubin Direct < 0.1 mg/dL (0-0.2); Bilirubin Indirect, Calculated ND mg/dL (0.2-0.8)
[2023-06-21 22:04] LABS: Specific Gravity > 1.030 (1.005-1.030); Urine Bacteria None Seen /HPF (<20); Urine Bilirubin NEGATIVE (Negative); Urine Blood Negative (Negative); Urine Clarity Clear (Clear); Urine Color Light-Yellow (Yellow); Urine Glucose NEGATIVE (Negative); Urine Mucus Slight /HPF (None Seen); Urine Protein TRACE (Negative); Urine RBC <5 /HPF (None Seen); Urine Urobilinogen Normal (Normal); Urine pH 6.5 (5.0-7.0)
[2023-06-21 22:09] LABS: Barbiturates NEGATIVE (NEGATIVE); Benzodiazepines NEGATIVE (NEGATIVE); Cocaine NEGATIVE (NEGATIVE); METHAMPHETAM NEGATIVE (NEGATIVE); Methadone NEGATIVE (NEGATIVE); Opiates NEGATIVE (NEGATIVE); Phencyclidine NEGATIVE (NEGATIVE); THC Cannibis POSITIVE (NEGATIVE)
--- NOTE | 2023-06-21 23:35 | ER ---
Nurse's Notes [facility] Name: Soco Gillis Jr Age: 73 yrs Sex: Male : 1950 Arrival Date: 06/21/2023 Time: 18:48 Bed 19 Private MD: Diagnosis: Chest pain, unspecified;Non cardiac chest pain, Cannabis use disorder Presentation: 06/21 18:53 Chief complaint: EMS states: toned out to patient home for chest pain. Pt reports ld1 taking nitroglycerin [employer], EMS administered 324 ASA. Pt c/o 07/02 chest pain. Coronavirus screen: At this time, the client does not indicate any symptoms associated with coronavirus-19. Ebola Screen: No symptoms or risks identified at this time. Initial Sepsis Screen: Does the patient meet any 2 criteria? No. Patient's initial sepsis screen is negative. Does the patient have a suspected source of infection? No. Patient's initial sepsis screen is negative. Risk Assessment: Do you want to hurt yourself or someone else? Patient reports no desire to harm self or others. Onset of symptoms was June 21, 2023. 18:53 Method Of Arrival: EMS: [facility] ld1 18:53 Acuity: KAY 3 ld1 Triage Assessment: 18:54 General: Appears in no apparent distress. comfortable, Behavior is calm, cooperative, ld1 appropriate for age. Pain: Complains of pain in chest Pain does not radiate. Pain currently is 3 out of 10 on a pain scale. at worst was 7 out of 10 on a pain scale. Quality of pain is described as pressure, throbbing, Pain began 2 hours ago. Is continuous. EENT: No signs and/or symptoms were reported regarding the EENT system. Neuro: Level of Consciousness is awake, alert, obeys commands, Oriented to person, place, time, situation, Appropriate for age. Cardiovascular: Reports chest pain, Capillary refill < 3 seconds Patient's skin is warm and dry. Rhythm is sinus rhythm. Respiratory: Airway is patent Respiratory effort is even, unlabored. GI: Abdomen is flat, non-distended. : No signs and/or symptoms were reported regarding the genitourinary system. Derm: No signs and/or symptoms reported regarding the dermatologic system. Musculoskeletal: No signs and/or symptoms reported regarding the musculoskeletal system. Historical: - Allergies: 18:54 Cipro; ld1 18:54 Codeine; ld1 - PMHx: 18:54 Diverticulitis; Hypercholesterolemia; Myocardial infarction; ld1 - PSHx: 18:54 Cholecystectomy; Right eye surger; Stented artery; ld1 - Immunization history:: Adult Immunizations up to date. - Social history:: Smoking status: Patient reports the use of cigarette tobacco products, smokes one pack cigarettes per day. Patient/guardian denies using alcohol. Screenin:26 [facility] ED Fall Risk Assessment (Adult) History of falling in the last 3 months, tm6 including since admission No falls in past 3 months (0 pts) Confusion or Disorientation No (0 pts) Intoxicated or Sedated No (0 pts) Impaired Gait No (0 pts) Mobility Assist Device Used No (0 pt) Altered Elimination No (0 pt) Score/Fall Risk Level 0 - 2 = Low Risk Oriented to surroundings, Maintained a safe environment. Abuse screen: Denies threats or abuse. Denies injuries from another. Nutritional screening: No deficits noted. Tuberculosis screening: No symptoms or risk factors identified. Assessment: 19:22 General: Appears in no apparent distress. Behavior is calm, cooperative. Pain: tm6 Complains of pain in chest Pain currently is 7 out of 10 on a pain scale. Quality of pain is described as dull, Pain began 1 day ago. Is intermittent. Pain: Pain does not radiate. Neuro: Chin Agitation-Sedation Scale (RASS): 0 - Alert and Calm Level of Consciousness is awake, alert, obeys commands, Oriented to person, place, time, situation. Cardiovascular: Capillary refill < 3 seconds Patient's skin is warm and dry. Rhythm is sinus rhythm Chest pain quality is dull began 1 day ago episodes are intermittent. Respiratory: Reports shortness of breath at rest on exertion Airway is patent Respiratory effort is even, unlabored, Respiratory pattern is regular, symmetrical. GI: Reports diarrhea, nausea, vomiting. : No signs and/or symptoms were reported regarding the genitourinary system. EENT: No signs and/or symptoms were reported regarding the EENT system. Derm: No signs and/or symptoms reported regarding the dermatologic system. Musculoskeletal: No signs and/or symptoms reported regarding the musculoskeletal system. 20:15 Reassessment: Patient and/or family updated on plan of care and expected duration. Pain tm6 level reassessed. Patient is alert, oriented x 3, equal unlabored respirations, skin warm/dry/pink. 20:55 Reassessment: nausea improved, but now complaining of rib pain on the right side. tm6 21:36 Reassessment: Patient appears in no apparent distress at this time. No changes from tm6 previously documented assessment. Patient and/or family updated on plan of care and expected duration. Pain level reassessed. Patient is alert, oriented x 3, equal unlabored respirations, skin warm/dry/pink. 22:41 Reassessment: Patient appears in no apparent distress at this time. Patient and/or tm6 family updated on plan of care and expected duration. Pain level reassessed. Patient is alert, oriented x 3, equal unlabored respirations, skin warm/dry/pink. 06/22 00:03 Reassessment: Patient and/or family updated on plan of care and expected duration. Pain tm6 level reassessed. Patient is alert, oriented x 3, equal unlabored respirations, skin warm/dry/pink. Patient states feeling better. Vital Signs: 06/21 18:53 BP 107 / 72; Pulse 71; Resp 18; Temp 97.6(TE); Pulse Ox 97% on R/A; Weight 65.77 kg; ld1 Height 5 ft. 10 in. ; Pain 3/10; 19:22 BP 116 / 75; Pulse 67; Resp 22; Pulse Ox 98% on R/A; Pain 7/10; tm6 20:15 BP 111 / 66; Pulse 61; Pulse Ox 92% on R/A; tm6 21:36 BP 106 / 82; Pulse 66; Pulse Ox 97% on R/A; Pain 5/10; tm6 22:41 BP 109 / 67; Pulse 65; Pulse Ox 95% on R/A; Pain 0/10; tm6 06/22 00:03 BP 104 / 59; Pulse 64; Resp 19; Temp 97.3(TE); Pulse Ox 97% on R/A; Pain 0/10; tm6 06/21 18:53 Body Mass Index 20.81 (65.77 kg, 177.8 cm) ld1 06/21 18:53 Pain Scale: Adult ld1 19:22 Pain Scale: Adult tm6 21:36 Pain Scale: Adult tm6 22:41 Pain Scale: Adult tm6 06/22 00:03 Pain Scale: Adult tm6 ED Course: 06/21 18:52 Patient arrived in ED. ld1 18:53 Aleksandar Lovett MD is Attending Physician. sp3 18:54 Triage completed. ld1 18:54 Arm band placed on right wrist. ld1 19:05 Qian Richmond, RN is Primary Nurse. tm6 19:17 NT PRO-BNP Sent. tm6 19:17 LFT's Sent. tm6 19:17 Basic Metabolic Panel Sent. tm6 19:17 CBC with Diff Sent. tm6 19:17 Troponin HS Sent. tm6 19:22 XRAY Chest (1 view) In Process Unspecified. EDMS 19:26 Patient has correct armband on for positive identification. Bed in low position. Call tm6 light in reach. Side rails up X2. Provided Education on: plan of care. Client placed on continuous cardiac and pulse oximetry monitoring. NIBP monitoring applied. women's soccer coach on. Pulse ox on. NIBP on. Door closed. Noise minimized. Warm blanket given. 19:26 No provider procedures requiring assistance completed. Maintain EMS IV. Dressing tm6 intact. Good blood return noted. Site clean \T\ dry. Gauge \T\ site: 20g RFA. Patient maintains SpO2 saturation greater than 95% on room air. 20:10 Radiology exam delayed due to lab results not completed at this time. (BUN/Creatinine). nj 20:30 Attending Physician role handed off by Aleksandar Lovett MD sp4 20:30 Conor Nielsen MD is Attending Physician. sp4 20:48 CT Chest For PE Angio In Process Unspecified. EDMS 23:34 Bryan Lama MD is Referral Physician. sp4 06/22 00:04 IV discontinued, intact, bleeding controlled, No redness/swelling at site. Pressure tm6 dressing applied. Administered Medications: 06/21 19:22 Not Given (patient received 324mg aspirin from EMS PTAa): aspirinchewable tablet 324 mg tm6 PO once; 81 mg tablets x 4 20:05 Drug: Ondansetron IVP 4 mg IVP once; over 2 minutes Route: IVP; Site: right forearm; tm6 Medication: 19:26 VIS not applicable for this client. tm6 Outcome: 23:35 Discharge ordered by spKami 06/22 00:04 Discharged to home ambulatory, tm6 Condition: stable Instructed on discharge instructions, follow up and referral plans. medication usage, Demonstrated understanding of instructions, follow-up care, medications, Prescriptions given X 2, 00:04 Patient left the ED. tm6 Signatures: Dispatcher [employer] EDMS Adrian Crooks Lauren RN RN ld1 Aleksandar Lovett MD MD sp3 Conor Nielsen MD MD sp4 Qian Richmond RN RN tm6
--- NOTE | 2023-06-21 23:36 | EDPHYS ---
Physician Documentation [facility] Name: Soco Gillis Jr Age: 73 yrs Sex: Male : 1950 Arrival Date: 06/21/2023 Time: 18:48 Bed 19 Private MD: ED Physician Conor Nielsen HPI: 06/21 18:54 This 73 yrs old Male presents to ER via Unassigned with complaints of Chest Pain. sp3 18:54 73-year-old male with history of acute coronary syndrome, prediabetes, smoking history sp3 presents to the ED via EMS for chief complaint chest pain that started around 11 AM today. Patient took one of his nitro sprays from his old prescriptions which did not help. Patient has no local physician since he recently moved from [place] he has lost his ID in the process. He denies any headache, fever, URI symptoms, neck pain, shortness of breath, abdominal pain, back pain, nausea, vomiting, diarrhea, syncope, near syncope, other focal neurological deficit, prolonged immobilization, travel history, known sick contacts, or any other signs or symptoms on ROS at this time.. Historical: - Allergies: 18:54 Cipro; ld1 18:54 Codeine; ld1 - PMHx: 18:54 Diverticulitis; Hypercholesterolemia; Myocardial infarction; ld1 - PSHx: 18:54 Cholecystectomy; Right eye surger; Stented artery; ld1 - Immunization history:: Adult Immunizations up to date. - Social history:: Smoking status: Patient reports the use of cigarette tobacco products, smokes one pack cigarettes per day. Patient/guardian denies using alcohol. ROS: 18:55 Constitutional: Negative for fever, chills, and weight loss, Eyes: Negative for injury, sp3 pain, redness, and discharge, ENT: Negative for injury, pain, and discharge, Neck: Negative for injury, pain, and swelling, Respiratory: Negative for shortness of breath, cough, wheezing, and pleuritic chest pain, Abdomen/GI: Negative for abdominal pain, nausea, vomiting, diarrhea, and constipation, Back: Negative for injury and pain, MS/Extremity: Negative for injury and deformity, Skin: Negative for injury, rash, and discoloration, Neuro: Negative for headache, weakness, numbness, tingling, and seizure, Psych: Negative for depression, anxiety, suicide ideation, homicidal ideation, and hallucinations, Allergy/Immunology: Negative for hives, rash, and allergies, Endocrine: Negative for neck swelling, polydipsia, polyuria, polyphagia, and marked weight changes, Hematologic/Lymphatic: Negative for swollen nodes, abnormal bleeding, and unusual bruising, 18:55 All other systems are negative, Exam: 18:55 Constitutional: This is a well developed, well nourished patient who is awake, alert, sp3 and in no acute distress. Head/Face: Normocephalic, atraumatic. Eyes: Pupils equal round and reactive to light, extra-ocular motions intact. Lids and lashes normal. Conjunctiva and sclera are non-icteric and not injected. Cornea within normal limits. Periorbital areas with no swelling, redness, or edema. ENT: Nares patent. No nasal discharge, no septal abnormalities noted. External auditory canals are clear. Oropharynx with no redness, swelling, or masses, exudates, or evidence of obstruction, uvula midline. Mucous membranes moist. Neck: Trachea midline, no thyromegaly or masses palpated, and no cervical lymphadenopathy. Supple, full range of motion without nuchal rigidity, or vertebral point tenderness. No Meningismus. Chest/axilla: Normal chest wall appearance and motion. Nontender with no deformity. No lesions are appreciated. Cardiovascular: Regular rate and rhythm with a normal S1 and S2. No gallops, murmurs, or rubs. Normal PMI, no JVD. No pulse deficits. Respiratory: Lungs have equal breath sounds bilaterally, clear to auscultation and percussion. No rales, rhonchi or wheezes noted. No increased work of breathing, no retractions or nasal flaring. Abdomen/GI: Soft, non-tender, with normal bowel sounds. No distension or tympany. No guarding or rebound. No evidence of tenderness throughout. Back: No spinal tenderness. No costovertebral tenderness. Full range of motion. Skin: Warm, dry with normal turgor. Normal color with no rashes, no lesions, and no evidence of cellulitis. MS/ Extremity: Pulses equal, no cyanosis. Neurovascular intact. Full, normal range of motion. Neuro: Awake and alert, GCS 15, oriented to person, place, time, and situation. Cranial nerves II-XII grossly intact. Motor strength 5/5 in all extremities. Sensory grossly intact. Cerebellar exam normal. Normal gait. Psych: Awake, alert, with orientation to person, place and time. Behavior, mood, and affect are within normal limits. 19:19 ECG was reviewed by the Attending Physician. EKG demonstrates normal sinus rhythm at 63 sp3 bpm with normal intervals, poor R wave progression with nonspecific intra ventricular delay consistent with probable old infarct nonspecific diffuse ST's ST changes without evidence of acute ischemia. Vital Signs: 18:53 BP 107 / 72; Pulse 71; Resp 18; Temp 97.6(TE); Pulse Ox 97% on R/A; Weight 65.77 kg; ld1 Height 5 ft. 10 in. ; Pain 3/10; 19:22 BP 116 / 75; Pulse 67; Resp 22; Pulse Ox 98% on R/A; Pain 7/10; tm6 20:15 BP 111 / 66; Pulse 61; Pulse Ox 92% on R/A; tm6 21:36 BP 106 / 82; Pulse 66; Pulse Ox 97% on R/A; Pain 5/10; tm6 22:41 BP 109 / 67; Pulse 65; Pulse Ox 95% on R/A; Pain 0/10; tm6 06/22 00:03 BP 104 / 59; Pulse 64; Resp 19; Temp 97.3(TE); Pulse Ox 97% on R/A; Pain 0/10; tm6 06/21 18:53 Body Mass Index 20.81 (65.77 kg, 177.8 cm) ld1 06/21 18:53 Pain Scale: Adult ld1 19:22 Pain Scale: Adult tm6 21:36 Pain Scale: Adult tm6 22:41 Pain Scale: Adult tm6 06/22 00:03 Pain Scale: Adult tm6 MDM: 06/21 18:53 Patient medically screened. sp3 18:55 Data reviewed: vital signs, nurses notes, EMS record, old medical records, lab test sp3 result(s), EKG, radiologic studies. ED course: 73-year-old male with chest pain. Consider acute coronary syndrome, musculoskeletal chest pain, gastritis, other GI pathology, pleurisy, angina, among others. Workup will include CT scan of the chest, EKG, laboratory values and nitro as needed. Probable admission for serial cardiac markers and cardiology consultation.. 23:27 HEART Score: History: Slightly Suspicious (0), ECG: Normal (0), Age: > or = 65 years sp4 (2), Risk Factors: 1 or 2 risk factors (1), Troponin: < or = 1 x Normal Limit (0), Total Score = 3. 23:29 ED course: EXAM DESCRIPTION: CT - Chest For Pe Angio - 06/21/2023 8:46 pm CLINICAL sp4 HISTORY: CHEST PAIN COMPARISON: Chest Single View dated 06/21/2023; Abdomen Pelvis W Contrast dated 03/31/2023 TECHNIQUE: Dynamically enhanced axial 3 mm thick images of the chest were obtained during administration of <100> mL Isovue 370 IV contrast. Coronal and oblique reconstruction images were generated and reviewed. Exam utilizes a protocol for optimal evaluation of pulmonary arterial tree. Maximum intensity projections 3D imaging was utilized All CT scans are performed using dose optimization technique as appropriate and may include automated exposure control or mA/KV adjustment according to patient size. FINDINGS: Chest Wall: No suspicious thyroid nodules or pathologic lymphadenopathy. Lungs: No acute abnormality. Mild centrilobular emphysema. Pleura: No significant effusions or pneumothorax. Mediastinum/herson: No pathologic lymphadenopathy. Pulmonary arteries/Aorta: No filling defect identified. No aortic aneurysm. Heart: No significant pericardial effusion. Normal heart size. Multi-vessel coronary artery disease. CABG. . Upper abdomen: No acute abnormality. Bones: No acute abnormality. Remote left-sided rib fractures . Multilevel degenerative changes are present in the spine. IMPRESSION: Negative for pulmonary embolism. No acute findings within the chest.. 23:32 ED course: EXAM DESCRIPTION: RAD - Chest Single View - 06/21/2023 7:20 pm CLINICAL sp4 HISTORY: CHEST PAIN COMPARISON: No comparisons FINDINGS: Lines: None. Lungs: No evidence of edema or pneumonia. Apical scarring. Pleural: No significant pleural effusions or pneumothorax. Cardiac: The heart size is within normal limits. Mediastinum: Within normal limits. Bones: No acute fractures. Sternotomy. Rib deformity at the left posterior third rib may be related to remote trauma. Other: None IMPRESSION: No acute cardiopulmonary disease. . 23:32 The patient was given aspirin in the Emergency Department. sp4 23:32 Differential diagnosis: acute pericarditis, anxiety, coronary artery disease chest wall sp4 pain, congestive heart failure esophagitis, gastritis. ED course: Stable for discharge home. Will refer to Dr. Lama for further evaluation on outpatient basis. 06/21 18:53 Order name: Basic Metabolic Panel; Complete Time: 21:14 ld1 06/21 18:53 Order name: CBC with Diff; Complete Time: 19:33 ld1 06/21 18:53 Order name: Troponin HS; Complete Time: 21:14 ld1 06/21 18:59 Order name: LFT's; Complete Time: 21:25 sp3 06/21 18:59 Order name: NT PRO-BNP; Complete Time: 21:25 sp3 06/21 21:15 Order name: Troponin High Sensitivity; Complete Time: 22:29 sp4 06/21 21:25 Order name: Urinalysis W/Microscopic; Complete Time: 22:29 sp4 06/21 21:25 Order name: Urine Drug Screen; Complete Time: 22:29 sp4 06/21 18:53 Order name: XRAY Chest (1 view); Complete Time: 19:33 06/21 18:59 Order name: CT Chest For PE Angio; Complete Time: 21:14 sp3 06/21 18:53 Order name: EKG; Complete Time: 18:53 06/21 18:53 Order name: Cardiac monitoring; Complete Time: 19:17 ld06/21 18:53 Order name: EKG - Nurse/Tech; Complete Time: 19:12 ld06/21 18:53 Order name: IV Saline Lock; Complete Time: 19:06 ld1 06/21 18:53 Order name: Labs collected and sent; Complete Time: 19:06 06/21 18:53 Order name: O2 Per Protocol; Complete Time: 18:53 ld06/21 18:53 Order name: O2 Sat Monitoring; Complete Time: 18:53 ld1 Administered Medications: 19:22 Not Given (patient received 324mg aspirin from EMS PTAa): aspirinchewable tablet 324 mg tm6 PO once; 81 mg tablets x 4 20:05 Drug: Ondansetron IVP 4 mg IVP once; over 2 minutes Route: IVP; Site: right forearm; tm6 Disposition Summary: 06/21/23 23:35 Discharge Ordered Notes: Location: Home sp4 Problem: new sp4 Symptoms: have improved sp4 Condition: Stable sp4 Diagnosis - Chest pain, unspecified sp4 - Non cardiac chest pain, Cannabis use disorder sp4 Followup: sp4 - With: Bryan Lama MD - When: 7 - 10 days - Reason: Recheck today's complaints Discharge Instructions: - Discharge Summary Sheet sp4 - Nonspecific Chest Pain, Adult sp4 Forms: - Patient Portal Instructions sp4 Prescriptions: - Coreg 6.25 mg Oral tablet - take 1 tablet ORAL route every 12 hours must administer with a meal/food; 180 sp4 tablet; Refills: 0, Product Selection Permitted - simvastatin 40 mg Oral tablet - take 1 tablet ORAL route every evening; 90 tablet; Refills: 0, Product sp4 Selection Permitted Signatures: Dispatcher [employer] EDMS Sue Wade RN RN ld1 Aleksandar Lovett MD MD sp3 Conor Nielsen MD MD sp4 Qian Richmond RN RN tm6
[2023-06-22 00:32] VITALS: BP 104/59; TEMP 97.3; O2SAT 97
== END ==
LOC: ER 18:48
DX: R07.89 Other chest pain (principal); F12.90 Cannabis use, unspecified, uncomplicated; I25.2 Old myocardial infarction; E78.00 Pure hypercholesterolemia, unspecified; F17.210 Nicotine dependence, cigarettes, uncomplicated; Z88.1 Allergy status to other antibiotic agents; Z88.5 Allergy status to narcotic agent
CPT/HCPCS: 85025; 81001; 80048; 36415; 80076; 84484 ×2; 83880; 80307; 71275; 71045; Q9967; J2405; 93005

== ENCOUNTER → 2023-07-14 | Emergency (ER) | payer OTHER ==
[~2023-07-14] MED LIST changes: +AMOX/K CLAV 875 MG TAB ONE; -ASPIRIN 81 MG CHEWABLE TABLET ONE; +FAMOTIDINE 20 MG/2 ML VIAL IV ONE; +KETOROLAC 30 MG/ML INJ ONE; +METRONIDAZOLE 500mg IVPB 500 MG/100 ML BAG IV ONE; +NA CHLORIDE 0.9% 500 ML ONE
[2023-07-14 15:22] LABS: Absolute Basophils 0.1 K/uL (0-0.5); Absolute Lymphocytes (CBC) 0.9 K/uL (0.7-4.9); Absolute Monocytes 0.9 K/uL (0.1-1.3); Absolute Neutrophil 11.8 K/uL (1.8-8.0); Basophils % 0.6 % (0-1.3); Eosinophils % 0.3 % (0-4.4); Hemoglobin 15.9 g/dL (13.6-17.9); Lymphocytes % 6.3 % (15.3-44.8); MCH 30.1 pg (27.0-35.0); MCHC 33.1 g/dL (32.0-36.0); MCV 90.9 fL (80-100); MPV 8.6 fL (7.6-11.3); Monocytes % 6.3 % (3.3-12.3); Neutrophils % 86.5 % (41.7-73.7); Platelets 236 thou/uL (152-406); RBC Red Blood Cell Count 5.28 M/uL (4.33-5.43); Red Cell Distribution Width 13.9 % (12.1-15.2)
[2023-07-14 15:56] LABS: Specific Gravity 1.027 (1.005-1.030); Sqamous Epithelial <5 /HPF (None Seen); Urine Bacteria None Seen /HPF (<20); Urine Bilirubin NEGATIVE (Negative); Urine Blood Negative (Negative); Urine Clarity Clear (Clear); Urine Color Yellow (Yellow); Urine Culture Reflex Order NOT NEEDED; Urine Glucose NEGATIVE (Negative); Urine Ketones 3+ (Negative); Urine Microscopic Reflex YN ORDER UMIC; Urine Mucus Slight /HPF (None Seen); Urine Nitrite NEGATIVE (Negative); Urine Protein 1+ (Negative); Urine RBC <5 /HPF (None Seen); Urine Urobilinogen Normal (Normal); Urine WBC <5 /HPF (<5)
[2023-07-14 16:20] LABS: Albumin 3.6 g/dL (3.4-5.0); Albumin/Globulin Ratio 0.9 (1.1-1.8); Anion Gap 11.8 mEq/L (5.0-15.0); Bilirubin Total 0.6 mg/dL (0.2-1.0); Globulin 4.1 g/dL (2.3-3.5); Potassium 3.8 mEq/L (3.5-5.1); Protein, Total 7.7 g/dL (6.4-8.2)
--- NOTE | 2023-07-14 17:40 | RAD REPORT ---
EXAM DESCRIPTION: Ruba Single View07/14/2023 3:31 pm CLINICAL HISTORY: Abdominal pain COMPARISON: May 2023 FINDINGS: Lungs are hyperaerated. The lungs appear clear of acute infiltrate. The heart is normal si ze Postsurgical changes involve the chest IMPRESSION: No acute abnormalities displayed
--- NOTE | 2023-07-14 17:40 | RAD REPORT ---
EXAM DESCRIPTION: CT - Abdomen Pelvis W Contrast - 07/14/2023 5:11 pm CLINICAL HISTORY: Abdominal pain COMPARISON: 2022 TECHNIQUE: Computed axial tomography of the abdomen pelvis was obtained. 100 cc Isovue-300 was admin istered intravenously. Oral contrast was not requested which limits evaluation of bowel and appendix All CT scans are performed using dose optimization technique as appropriate and may include automated exposure control or mA/KV adjustment according to patient size. FINDINGS: A cholecystectomy. Prominence of extrahepatic biliary tree without significant change. Prominent caudate lobe of the liver. Liver has a mildly nodular contour Spleen, pancreas and adrenals unremarkable. Small renal cysts. Nonobstructing right renal calculus. Small left renal calculus. 2 centimeter inter mediate density left renal mass Normal appendix. Long segment of the sigmoid colon has a markedly thickened wall. It is without significant change fro m prior exam. Diverticula stem from the colon. No evidence of diverticulitis. Small umbilical hernia IMPRESSION: Markedly thickened wall of a long segment of the sigmoid colon. This could be the sequel a of diverticulosis with muscular hypertrophy. Other consideration includes neoplasm and inflammation . If the patient has not had direct visualization in the last 6 months this would recommended Prominence of the extrahepatic biliary tree may be a physiologic finding in this patient status post cholecystectomy. This should be correlated clinically with appropriate lab values Prominent caudate lobe liver. Liver has a mildly nodular contour. This can be seen with chronic disea se 2 centimeter intermediate density left renal mass may represent a benign complex cyst. As neoplasm ca n also have this appearance it is recommended that the patient have an unenhanced CT scan on a future day. This can be compared to the current exam to determine if there is abnormal enhancement to sugge st neoplasm
--- NOTE | 2023-07-14 19:41 | ER ---
Nurse's Notes [facility] Name: Soco Gillis Jr Age: 73 yrs Sex: Male : 1950 Arrival Date: 07/14/2023 Time: 14:40 Bed 4 Private MD: Diagnosis: Indeterminate colitis-Sigmoid;Nausea with vomiting, unspecified Presentation: 07/13 14:45 Chief complaint: EMS states: "abdominal pain, n/v x1 day". Coronavirus screen: At this rs5 time, the client does not indicate any symptoms associated with coronavirus-19. Ebola Screen: No symptoms or risks identified at this time. Initial Sepsis Screen: Does the patient meet any 2 criteria? No. Patient's initial sepsis screen is negative. Does the patient have a suspected source of infection? No. Patient's initial sepsis screen is negative. Risk Assessment: Do you want to hurt yourself or someone else? Patient reports no desire to harm self or others. Onset of symptoms was July 14, 2023. Care prior to arrival: Medication(s) given: zofran 4 mg, fentanyl 50 mcg IV. 14:45 Method Of Arrival: EMS: [facility] rs5 14:45 Acuity: KAY 3 rs5 Historical: - Allergies: 14:47 Cipro; rs5 14:47 Codeine; rs5 - PMHx: 14:47 Diverticulitis; Hypercholesterolemia; Myocardial infarction; rs5 - PSHx: 14:47 Cholecystectomy; Right eye surger; Stented artery; rs5 - Immunization history:: Adult Immunizations up to date. - Social history:: Smoking status: Patient denies any tobacco usage or history of. Screenin:46 [facility] ED Fall Risk Assessment (Adult) History of falling in the last 3 months, ld1 including since admission No falls in past 3 months (0 pts). Abuse screen: Denies threats or abuse. Denies injuries from another. Nutritional screening: No deficits noted. Tuberculosis screening: No symptoms or risk factors identified. Assessment: 14:45 General: Appears in no apparent distress. comfortable, Behavior is calm, cooperative, rs5 appropriate for age. Pain: Complains of pain in abdomen Pain does not radiate. Pain currently is 8 out of 10 on a pain scale. Quality of pain is described as throbbing. Neuro: Level of Consciousness is awake, alert, obeys commands, Oriented to person, place, time, situation. Cardiovascular: Capillary refill < 3 seconds Patient's skin is warm and dry. Respiratory: Airway is patent Respiratory effort is even, unlabored. GI: Abdomen is flat, non-distended, Reports lower abdominal pain, upper abdominal pain. EENT: No signs and/or symptoms were reported regarding the EENT system. Derm: No signs and/or symptoms reported regarding the dermatologic system. Musculoskeletal: No signs and/or symptoms reported regarding the musculoskeletal system. 14:45 : No signs and/or symptoms were reported regarding the genitourinary system. rs5 15:50 Reassessment: Patient and/or family updated on plan of care and expected duration. Pain rs5 level reassessed. Patient is alert, oriented x 3, equal unlabored respirations, skin warm/dry/pink. Patient denies pain at this time. Patient states feeling better. Patient states symptoms have improved. 16:30 Reassessment: No changes from previously documented assessment. rs5 17:42 Reassessment: Patient and/or family updated on plan of care and expected duration. Pain rs5 level reassessed. Patient is alert, oriented x 3, equal unlabored respirations, skin warm/dry/pink. Patient states feeling better. Patient states symptoms have improved. Pain: Complains of pain in abdomen Pain currently is 2 out of 10 on a pain scale. Quality of pain is described as aching, Is continuous. 18:45 Reassessment: No changes from previously documented assessment. rs5 Vital Signs: 14:45 BP 127 / 86; Pulse 80; Resp 18; Pulse Ox 99% on R/A; rs5 16:46 BP 135 / 84; Pulse 79; Resp 18; Temp 97.9(TE); Pulse Ox 100% on R/A; Weight 82.55 kg; ld1 Height 5 ft. 10 in. ; Pain 8/10; 17:44 BP 113 / 60; Pulse 78; Resp 18; Pulse Ox 99% on R/A; ld1 20:12 BP 124 / 68; Pulse 74; Resp 16; Pulse Ox 100% on R/A; mb9 16:46 Body Mass Index 26.11 (82.55 kg, 177.8 cm) ld1 16:46 Pain Scale: Adult ld1 ED Course: 14:44 Patient arrived in ED. ds4 14:45 Monico Melo, YANICK is Primary Nurse. rs5 14:46 Anuj Alvarez PA is PHCP. cp 14:46 Anuj Salazar MD is Attending Physician. cp 14:47 Triage completed. rs5 15:10 Inserted saline lock: 22 gauge in left hand, using aseptic technique. rs5 15:33 XRAY Chest (1 view) In Process Unspecified. EDMS 16:46 Patient has correct armband on for positive identification. Placed in gown. Bed in low ld1 position. Call light in reach. Side rails up X2. athletic monitor on. Pulse ox on. NIBP on. Door closed. Noise minimized. Warm blanket given. 16:46 No provider procedures requiring assistance completed. ld1 17:13 CT Abd/Pelvis - IV Contrast Only In Process Unspecified. EDMS 19:39 Jw Puentes MD is Referral Physician. cp 20:03 IV discontinued, intact, bleeding controlled, No redness/swelling at site. Pressure mb9 dressing applied. Administered Medications: 14:48 Drug: NS 0.9% IV 500 ml IV at 500 ml/hr continuous Route: IV; Rate: 500 ml/hr; Site: rs5 right antecubital; 14:58 Drug: Famotidine IVP 20 mg IVP once; dilute with 10 mL 0.9% NaCl; give over 2 minutes rs5 Route: IVP; Site: right antecubital; 14:58 Drug: Ondansetron IVP 4 mg IVP once; over 2 minutes Route: IVP; Site: right antecubital;rs5 14:58 Drug: Ketorolac IVP 15 mg IVP once Route: IVP; Site: right antecubital; rs5 18:50 Drug: metroNIDAZOLE IVPB 500 mg 100 ml IVPB once over 30 mins Volume: 100 ml; Route: rs5 IVPB; Infused Over: 30 mins; Site: left antecubital; 18:50 Drug: Amoxicillin-Clavulanate PO 875 mg PO once Route: PO; rs5 Medication: 16:46 VIS not applicable for this client. ld1 Outcome: 19:40 Discharge ordered by . cp 20:12 Discharged to home ambulatory, mb9 20:12 Condition: stable 20:12 Discharge instructions given to patient, Instructed on discharge instructions, follow up and referral plans. Demonstrated understanding of instructions, follow-up care, medications, Prescriptions given X 3, 20:13 Patient left the ED. mb9 Signatures: Dispatcher [employer] EDMS Jw Sanchez ds4 Anuj Alvarez PA PA cp Sims, Lauren, RN RN ld1 Altagracia, Milady, RN RN mb9 Monico Melo RN RN rs5 Corrections: (The following items were deleted from the chart) 17:43 16:46 General: Appears in no apparent distress. comfortable, Behavior is calm, rs5 cooperative, appropriate for age, ld1 17:43 16:46 Pain: Complains of pain in abdomen Pain does not radiate. Pain currently is 8 out rs5 of 10 on a pain scale. Quality of pain is described as throbbing, ld1 17:43 16:46 Neuro: Level of Consciousness is awake, alert, obeys commands, Oriented to rs5 person, place, time, situation, ld1 17:43 16:46 Cardiovascular: Capillary refill < 3 seconds Patient's skin is warm and dry. ld1 rs5 17:43 16:46 Respiratory: Airway is patent Respiratory effort is even, unlabored, ld1 rs5 17:43 16:46 GI: Abdomen is flat, non-distended, Reports lower abdominal pain, upper abdominal rs5 pain, ld1 17:43 16:46 : No signs and/or symptoms were reported regarding the genitourinary system. ld1rs5 17:43 16:46 EENT: No signs and/or symptoms were reported regarding the EENT system. ld1 rs5 17:43 16:46 Derm: No signs and/or symptoms reported regarding the dermatologic system. ld1 rs5 17:43 16:46 Musculoskeletal: No signs and/or symptoms reported regarding the musculoskeletal rs5 system. ld1
--- NOTE | 2023-07-14 19:41 | EDPHYS ---
Physician Documentation [facility] Name: Soco Gillis Jr Age: 73 yrs Sex: Male : 1950 Arrival Date: 07/14/2023 Time: 14:40 Bed 4 Private MD: ED Physician Anuj Salazar HPI: 07/13 14:50 This 73 yrs old Male presents to ER via EMS with complaints of Abdominal Pain. cp 14:50 The patient presents with abdominal pain in the left upper quadrant, in the left lower cp quadrant. Onset: The symptoms/episode began/occurred yesterday, went away and returned this morning about 0400. Associated signs and symptoms: Pertinent positives: nausea and vomiting, 4 bowel movements with 1 episode diarrhea, Pertinent negatives: blood in stools, vomiting blood. Historical: - Allergies: 14:47 Cipro; rs5 14:47 Codeine; rs5 - PMHx: 14:47 Diverticulitis; Hypercholesterolemia; Myocardial infarction; rs5 - PSHx: 14:47 Cholecystectomy; Right eye surger; Stented artery; rs5 - Immunization history:: Adult Immunizations up to date. - Social history:: Smoking status: Patient denies any tobacco usage or history of. ROS: 15:00 Constitutional: Positive for poor PO intake, Negative for body aches, chills, fever, cp 15:00 Eyes: Negative for injury, pain, redness, and discharge, cp 15:00 ENT: Negative for drainage from ear(s), ear pain, sore throat, difficulty swallowing, difficulty handling secretions, 15:00 Cardiovascular: Negative for chest pain, 15:00 Respiratory: Negative for cough, shortness of breath, wheezing, 15:00 Abdomen/GI: Positive for abdominal pain, nausea and vomiting, diarrhea, Negative for constipation, hematemesis, black/tarry stool, rectal bleeding, 15:00 Neuro: Negative for altered mental status, dizziness, headache, syncope, 15:00 All other systems are negative, Exam: 15:53 Constitutional: The patient appears in no acute distress, alert, awake, cp non-diaphoretic, non-toxic, well developed, well nourished, uncomfortable, 15:53 Head/Face: Normocephalic, atraumatic. cp 15:53 Eyes: Periorbital structures: appear normal, Conjunctiva: normal, no exudate, no injection, Sclera: no appreciated abnormality, Lids and lashes: appear normal, bilaterally, 15:53 ENT: External ear(s): are unremarkable, Nose: is normal, Mouth: Lips: moist, Oral mucosa: moist, Posterior pharynx: Airway: no evidence of obstruction, patent, 15:53 Chest/axilla: Inspection: normal, 15:53 Cardiovascular: Rate: normal, Rhythm: regular, Edema: is not appreciated, JVD: is not appreciated, 15:53 Respiratory: the patient does not display signs of respiratory distress, Respirations: normal, no use of accessory muscles, no retractions, labored breathing, is not present, Breath sounds: are clear throughout, no decreased breath sounds, no stridor, no wheezing, 15:53 Abdomen/GI: Inspection: abdomen appears normal, Bowel sounds: active, all quadrants, Palpation: soft, in all quadrants, moderate abdominal tenderness, in the left upper quadrant and left lower quadrant, rebound tenderness, is not appreciated, involuntary guarding, is not appreciated, 15:53 Back: CVA tenderness, is absent, 15:53 Neuro: Orientation: to person, place \T\ time. Mentation: is normal, Motor: moves all fours, strength is normal, Sensation: is normal, Vital Signs: 14:45 BP 127 / 86; Pulse 80; Resp 18; Pulse Ox 99% on R/A; rs5 16:46 BP 135 / 84; Pulse 79; Resp 18; Temp 97.9(TE); Pulse Ox 100% on R/A; Weight 82.55 kg; ld1 Height 5 ft. 10 in. ; Pain 8/10; 17:44 BP 113 / 60; Pulse 78; Resp 18; Pulse Ox 99% on R/A; ld1 20:12 BP 124 / 68; Pulse 74; Resp 16; Pulse Ox 100% on R/A; mb9 16:46 Body Mass Index 26.11 (82.55 kg, 177.8 cm) ld1 16:46 Pain Scale: Adult ld1 MDM: 14:46 Patient medically screened. cp 15:00 Differential diagnosis: appendicitis, bowel obstruction, gastritis, non-specific abd cp pain, pancreatitis, Peptic Ulcer Disease, Perf. Duodenal Ulcer, Perf. Gastric Ulcer, Pyelonephritis, Ureterolithiasis, urinary tract infection, colitis, diverticulitis. 19:40 Data reviewed: vital signs, nurses notes, lab test result(s), radiologic studies, CT cp scan. 19:40 I considered the following discharge prescriptions or medication management in the emergency department Medications were administered in the Emergency Department. See MAR. Counseling: I had a detailed discussion with the patient and/or guardian regarding the historical points, exam findings, and any diagnostic results supporting the discharge/admit diagnosis, lab results, radiology results, to return to the emergency department if symptoms worsen or persist or if there are any questions or concerns that arise at home. Response to treatment: the patient's symptoms have markedly improved after treatment, pain and nausea markedly improved, patient tolerating po fluids, and as a result, I will discharge patient. Special discussion: Based on the patient's Hx, exam, and Dx evaluation, there is no indication for emergent surgery or inpatient Tx. It is understood by the patient/guardian that if the Sx's persist or worsen they need to return immediately for re-evaluation. 07/13 14:47 Order name: CBC with Diff 07/13 16:28 Interpretation: Normal except: WBC 13.60; SHWETA% 86.5; LYM% 6.3; NEUT A 11.8. 07/13 14:47 Order name: CMP; Complete Time: 16:28 07/13 19:37 Interpretation: Normal except: GLUC 112; BUN 21; GLOB 4.1; A/G 0.9. 07/13 14:47 Order name: Lipase; Complete Time: 16:28 07/13 14:47 Order name: Urinalysis w/ reflexes; Complete Time: 16:28 07/13 19:38 Interpretation: Normal except: UKET 3+; UPROT 1+. 07/13 14:47 Order name: CT Abd/Pelvis - IV Contrast Only; Complete Time: 18:16 07/13 14:47 Order name: XRAY Chest (1 view); Complete Time: 18:16 07/13 14:47 Order name: IV Saline Lock; Complete Time: 15:20 07/13 14:47 Order name: Labs collected and sent; Complete Time: 15:20 07/13 15:24 Order name: Labs - recollect needed: green top; Complete Time: 16:00 ds4 07/13 18:38 Order name: PO challenge; Complete Time: 19:05 cp Administered Medications: 14:48 Drug: NS 0.9% IV 500 ml IV at 500 ml/hr continuous Route: IV; Rate: 500 ml/hr; Site: rs5 right antecubital; 14:58 Drug: Famotidine IVP 20 mg IVP once; dilute with 10 mL 0.9% NaCl; give over 2 minutes rs5 Route: IVP; Site: right antecubital; 14:58 Drug: Ondansetron IVP 4 mg IVP once; over 2 minutes Route: IVP; Site: right antecubital;rs5 14:58 Drug: Ketorolac IVP 15 mg IVP once Route: IVP; Site: right antecubital; rs5 18:50 Drug: metroNIDAZOLE IVPB 500 mg 100 ml IVPB once over 30 mins Volume: 100 ml; Route: rs5 IVPB; Infused Over: 30 mins; Site: left antecubital; 18:50 Drug: Amoxicillin-Clavulanate PO 875 mg PO once Route: PO; rs5 Disposition Summary: 07/14/23 19:40 Discharge Ordered Notes: Location: Home cp Problem: new cp Symptoms: have improved cp Condition: Stable cp Diagnosis - Indeterminate colitis - Sigmoid cp - Nausea with vomiting, unspecified cp Followup: cp - With: Jw Puentes MD - When: 1 week - Reason: Recheck today's complaints Discharge Instructions: - Discharge Summary Sheet cp - Nausea and Vomiting, Adult cp - Colitis cp Forms: - Medication Reconciliation Form cp - Thank You Letter cp - Antibiotic Education cp - Prescription Opioid Use cp - Patient Portal Instructions cp - Leadership Thank You Letter cp Prescriptions: - Augmentin 500-125 mg Oral Tablet - take 1 tablet ORAL route every 8 hours for 10 days; 30 tablet; Refills: 0, cp Product Selection Permitted - Zofran 4 mg Oral Tablet - take 1 tablet ORAL route every 12 hours As needed; 20 tablet; Refills: 0, cp Product Selection Permitted - Metronidazole 500 mg Oral Tablet - take 1 tablet ORAL route every 8 hours; 30 tablet; Refills: 0, Product cp Selection Permitted Signatures: Dispatcher [employer] Jw Wen ds4 Anuj Alvarez PA PA cp Monico Melo RN RN rs5
[2023-07-14 20:34] VITALS: BP 124/68; O2SAT 100
[2023-07-14 20:35] VITALS: TEMP 97.9
[2023-07-14 20:57] LABS: Blood Morphology Comment NOT SEEN (NOT SEEN); Platelet Estimate ADEQ; White Blood Cell Scan OK (OK)
== END ==
LOC: ER 14:40
DX: K52.3 Indeterminate colitis (principal); R11.2 Nausea with vomiting, unspecified; Z88.1 Allergy status to other antibiotic agents; Z88.5 Allergy status to narcotic agent
CPT/HCPCS: 85025; 81001; 36415; 83690; 80053; 74177; 71045; 99285; Q9967; J2405; J7040

== ENCOUNTER 2023-07-31 11:11 | Emergency (ER) | payer OTHER ==
[2023-07-31] MEDS ORDERED: IBUPROFEN 400 MG TAB ONE (11:27)
[2023-07-31] MEDS ORDERED: IBUPROFEN 200 MG TAB PO ONE (11:27)
--- NOTE | 2023-07-31 11:30 | EDPHYS ---
Physician Documentation [facility] Name: Soco Gillis Jr Age: 73 yrs Sex: Male : 1950 Arrival Date: 07/31/2023 Time: 11:11 Bed IW1 Private MD: ED Physician Anuj Salazar HPI: 07/30 11:27 This 73 yrs old Male presents to ER via Ambulatory with complaints of Hand Injury. kb 11:27 Pt is a 73 year old male who presents for right hand pain that started last night. kb Reports he used a hack saw for about 20 minutes yesterday and hasn't done anything like that in years. Denies injury or trauma. . Historical: - Allergies: 11:23 Codeine; nj1 11:23 Cipro; nj1 - PMHx: 11:23 Diverticulitis; Hypercholesterolemia; Myocardial infarction; nj1 - PSHx: 11:23 Cholecystectomy; Right eye surger; Stented artery; nj1 - Immunization history:: Client reports having NOT received the Covid vaccine. - Infectious Disease History:: Denies. - Social history:: Smoking status: Patient reports the use of cigarette tobacco products, smokes one-half pack cigarettes per day. ROS: 11:27 Constitutional: As per HPI kb Exam: 11:27 Constitutional: This is a well developed, well nourished patient who is awake, alert, kb and in no acute distress. Head/Face: Normocephalic, atraumatic. ENT: Moist Mucous membranes Cardiovascular: Regular rate Respiratory: Respirations even and unlabored. No increased work of breathing. Talking in full sentences Abdomen/GI: Soft, non-tender. No distention Skin: Warm, dry with normal turgor. Normal color. Neuro: Awake and alert, GCS 15, oriented to person, place, time, and situation. Moves all extremities. Normal gait. 11:27 Musculoskeletal/extremity: Extremities: grossly normal except: noted in the right hand: decreased ROM, pain, swelling, tenderness, ROM: limited active range of motion due to pain, Circulation is intact in all extremities. Sensation intact. Vital Signs: 11:18 BP 119 / 71; Pulse 82; Resp 17; Temp 97.3(TE); Pulse Ox 97% on R/A; Weight 68.04 kg; nj1 Height 6 ft. 0 in. ; Pain 910; 11:18 Body Mass Index 20.34 (68.04 kg, 182.88 cm) nj1 11:18 Pain Scale: Adult nj1 MDM: 11:23 Patient medically screened. kb 11:28 Differential diagnosis: tendonitis, sprain, strain. Data reviewed: vital signs, nurses kb notes. Test considered but Not performed: X-ray: hand x-ray considered, but pt states he didn't break anything and doesn't think that is necessary. . Counseling: I had a detailed discussion with the patient and/or guardian regarding the historical points, exam findings, and any diagnostic results supporting the discharge/admit diagnosis, the need for outpatient follow up, a family practitioner, to return to the emergency department if symptoms worsen or persist or if there are any questions or concerns that arise at home. 07/30 11:23 Order name: Everette Wrap; Complete Time: 11:35 kb Administered Medications: 11:35 Drug: Ibuprofen PO 600 mg PO once Route: PO; nj1 Disposition Summary: 07/31/23 11:29 Discharge Ordered Notes: Location: Home kb Condition: Stable kb Diagnosis - Pain in right hand kb Followup: kb - With: Emergency Department - When: As needed - Reason: Worsening of condition Followup: kb - With: Private Physician - When: 2 - 3 days - Reason: Recheck today's complaints, Continuance of care, Re-evaluation by your physician Discharge Instructions: - Discharge Summary Sheet kb - Musculoskeletal Pain kb - Hand Pain kb Forms: - Medication Reconciliation Form kb - Thank You Letter kb - Antibiotic Education kb - Prescription Opioid Use kb - Patient Portal Instructions kb - Leadership Thank You Letter kb Prescriptions: - Diclofenac Sodium 75 mg Oral tablet, delayed release (enteric coated) - take 1 tablet ORAL route 2 times per day As needed; 30 tablet; Refills: 0, kb Product Selection Permitted - orphenadrine citrate 100 mg Oral Tablet Sustained Release - take 1 tablet ORAL route 2 times per day As needed; 20 tablet; Refills: 0, kb Product Selection Permitted Signatures: Chastity Zapata, MERLENE HIGUERA-Abril Long, RN RN nj1
--- NOTE | 2023-07-31 11:30 | ER ---
Nurse's Notes [facility] Name: Soco Gillis Jr Age: 73 yrs Sex: Male : 1950 Arrival Date: 07/31/2023 Time: 11:11 Bed IW1 Private MD: Diagnosis: Pain in right hand Presentation: 07/30 11:18 Chief complaint: Patient states: Was cutting wood yesterday, a couple hours later right nj1 hand started hurting and getting swollen. Has not taken anything for pain. Coronavirus screen: Vaccine status: Patient reports being unvaccinated. Ebola Screen: Patient denies travel to an Ebola-affected area in the 21 days before illness onset. Initial Sepsis Screen: Does the patient meet any 2 criteria? No. Patient's initial sepsis screen is negative. Does the patient have a suspected source of infection? No. Patient's initial sepsis screen is negative. Risk Assessment: Do you want to hurt yourself or someone else? Patient reports no desire to harm self or others. Onset of symptoms was July 30, 2023. 11:18 Method Of Arrival: Ambulatory [facility] 11:18 Acuity: KAY 4 [facility] Triage Assessment: 11:24 General: Appears in no apparent distress. comfortable, Behavior is calm, cooperative, nj1 appropriate for age. Pain: Complains of pain in right hand Pain radiates to right arm Pain currently is 9 out of 10 on a pain scale. Neuro: No deficits noted. Cardiovascular: Patient's skin is warm and dry. Respiratory: No deficits noted. Musculoskeletal: Swelling present in right hand. Historical: - Allergies: 11:23 Codeine; nj1 11:23 Cipro; nj1 - PMHx: 11:23 Diverticulitis; Hypercholesterolemia; Myocardial infarction; nj1 - PSHx: 11:23 Cholecystectomy; Right eye surger; Stented artery; nj1 - Immunization history:: Client reports having NOT received the Covid vaccine. - Infectious Disease History:: Denies. - Social history:: Smoking status: Patient reports the use of cigarette tobacco products, smokes one-half pack cigarettes per day. Screenin:36 [facility] ED Fall Risk Assessment (Adult) History of falling in the last 3 months, nj1 including since admission No falls in past 3 months (0 pts) Confusion or Disorientation No (0 pts) Intoxicated or Sedated No (0 pts) Impaired Gait No (0 pts) Mobility Assist Device Used No (0 pt) Altered Elimination No (0 pt) Score/Fall Risk Level 0 - 2 = Low Risk Oriented to surroundings, Maintained a safe environment, Hourly rounding (assess needs \T\ fall precautionary measures) done. Abuse screen: Denies threats or abuse. Denies injuries from another. Nutritional screening: No deficits noted. Tuberculosis screening: No symptoms or risk factors identified. Vital Signs: 11:18 BP 119 / 71; Pulse 82; Resp 17; Temp 97.3(TE); Pulse Ox 97% on R/A; Weight 68.04 kg; nj1 Height 6 ft. 0 in. ; Pain 9/10; 11:18 Body Mass Index 20.34 (68.04 kg, 182.88 cm) nj1 11:18 Pain Scale: Adult [facility] ED Course: 11:14 Patient arrived in ED. mr 11:23 Triage completed. nj1 11:23 [facility]ast[facility]C [facility] kb 11:23 Anuj Salazar MD is Attending Physician. kb 11:23 Arm band placed on left wrist. nj1 11:35 Everette wrap to right hand. nj1 11:36 Patient has correct armband on for positive identification. Provided Education on: nj1 discharge instructions. 11:36 No provider procedures requiring assistance completed. Patient did not have IV access nj1 during this emergency room visit. Administered Medications: 11:35 Drug: Ibuprofen PO 600 mg PO once Route: PO; nj1 Medication: 11:37 VIS not applicable for this client. nj1 Outcome: 11:29 Discharge ordered by . kb 11:36 Discharged to home ambulatory, nj1 11:36 Condition: stable 11:36 Discharge instructions given to patient, Instructed on discharge instructions, follow up and referral plans. medication usage, safety practices, Demonstrated understanding of instructions, follow-up care, medications, Prescriptions given X 2, 11:37 Patient left the ED. nj1 Signatures: Chastity Zapata FNP-C FNP-Charley Tim, Reg Reg mr TapiaoAbril, RN RN nj1
[2023-07-31 16:37] VITALS: BP 119/71; TEMP 97.3; O2SAT 97
== END 2023-07-31 11:37 | disposition home or self-care (01) ==
LOC: ER 11:11
DX: M79.641 Pain in right hand (principal); F17.210 Nicotine dependence, cigarettes, uncomplicated; Z88.1 Allergy status to other antibiotic agents; Z88.5 Allergy status to narcotic agent
CPT/HCPCS: 99283

== ENCOUNTER 2023-08-07 12:08 | Inpatient (IN) | payer OTHER ==
[2023-08-07] MEDS ORDERED: MORPHINE 4 MG/ML SYR ONE (12:26)
[2023-08-07] MEDS ORDERED: ONDANSETRON 4 MG/2 ML VIAL ONE (12:26)
[2023-08-07] MEDS ORDERED: NA CHLORIDE 0.9% 1,000 ML ONE (12:27)
[2023-08-07 12:45] LABS: Absolute Basophils 0.1 K/uL (0-0.5); Absolute Eosinophils 0.2 K/uL (0-0.5); Absolute Lymphocytes (CBC) 0.7 K/uL (0.7-4.9); Absolute Neutrophil 10.9 K/uL (1.8-8.0); Basophils % 0.4 % (0-1.3); Eosinophils % 1.4 % (0-4.4); Hematocrit 45.6 % (39.6-49.0); Hemoglobin 14.9 g/dL (13.6-17.9); Lymphocytes % 5.6 % (15.3-44.8); MCH 30.1 pg (27.0-35.0); MCHC 32.7 g/dL (32.0-36.0); MCV 91.9 fL (80-100); MPV 9.6 fL (7.6-11.3); Neutrophils % 84.6 % (41.7-73.7); Platelets 182 thou/uL (152-406); RBC Red Blood Cell Count 4.96 M/uL (4.33-5.43); Red Cell Distribution Width 13.8 % (12.1-15.2)
[2023-08-07 13:09] LABS: Albumin 3.5 g/dL (3.4-5.0); Albumin/Globulin Ratio 0.9 (1.1-1.8); Anion Gap 9.9 mEq/L (5.0-15.0); Bilirubin Total 0.5 mg/dL (0.2-1.0); Globulin 3.8 g/dL (2.3-3.5); Potassium 3.9 mEq/L (3.5-5.1); Protein, Total 7.3 g/dL (6.4-8.2)
--- NOTE | 2023-08-07 14:40 | RAD REPORT ---
EXAM DESCRIPTION: CT - Abdomen Pelvis W Contrast - 08/07/2023 1:32 pm CLINICAL HISTORY: ABD PAIN COMPARISON: Abdomen Pelvis W Contrast dated 07/14/2023; Abdomen Pelvis W Contrast dated 03/31/2023 ; Abdomen Pelvis W Contrast dated 03/21/2023 TECHNIQUE: Thin cut axial CT imaging of the abdomen and pelvis was performed following intravenous a dministration of 100 mL Isovue 300. Multiplanar reformats were generated and reviewed. All CT scans are performed using dose optimization technique as appropriate and may include automated exposure control or mA/KV adjustment according to patient size. FINDINGS: Motion artifact somewhat limits evaluation. No suspicious findings in the lung bases. The liver, spleen, adrenal glands, and pancreas show no suspicious findings. Gallbladder surgically r emoved. Prominent common bile duct caliber, favored to relate to post cholecystectomy status. Symmetric renal function is seen with no hydronephrosis or suspicious renal mass. Few hypoattenuating renal cortical lesions bilaterally, largest measuring 1.8 cm in size at the left interpolar region, stable. Right lower pole 8 mm nonobstructing calculus. No dilated bowel loops. Colonic diverticulosis. Stable extent of segmental wall thickening along the proximal to mid sigmoid colon. Progressive or more conspicuous lobulated marginally enhancing fluid c ollection, containing small locules of gas anteriorly, along the colonic adventitia in that region, i nterposed against the left pelvic sidewall, measuring 3.4 x 3.3 x 2.3 cm. No free air, free fluid or other inflammatory stranding. No hernia, mass or bulky lymphadenopathy. The urinary bladder is withou t significant finding. No suspicious bony findings. IMPRESSION: Progressive or more conspicuous lobulated marginally enhancing fluid collection with pun ctate foci of gas anteriorly, along the adventitia of the sigmoid colon wall wall interposed against the left pelvic sidewall, suggesting a contained leak, in the setting of incompletely resolved divert iculitis. No free air or free fluid. Nonobstructing right renal lower pole 8 mm calculus.
--- NOTE | 2023-08-07 15:06 | ER ---
Nurse's Notes [facility] Name: Soco Gillis Jr Age: 73 yrs Sex: Male : 1950 Arrival Date: 08/07/2023 Time: 12:08 Bed 5 Private MD: Diagnosis: sigmoid colitis Presentation: 08/06 12:11 Chief complaint: EMS states: LLQ abd pain radiates to back 10/10 pain, has nausea but ko1 no vomiting, had one episode of diarrhea. Coronavirus screen: At this time, the client does not indicate any symptoms associated with coronavirus-19. Ebola Screen: No symptoms or risks identified at this time. Initial Sepsis Screen: Does the patient meet any 2 criteria? No. Patient's initial sepsis screen is negative. Does the patient have a suspected source of infection? No. Patient's initial sepsis screen is negative. Risk Assessment: Do you want to hurt yourself or someone else? Patient reports no desire to harm self or others. Onset of symptoms is unknown. Care prior to arrival: Medication(s) given: IV initiated. 20 GA, in the right forearm. 12:11 Method Of Arrival: EMS: [facility] ko1 12:11 Acuity: KAY 3 ko1 Triage Assessment: 12:16 General: Appears distressed, uncomfortable, Behavior is cooperative, appropriate for ko1 age. Pain: Complains of pain in abdomen. EENT: No deficits noted. Neuro: No deficits noted. Cardiovascular: No deficits noted. Respiratory: No deficits noted. GI: Reports cramping, diarrhea, nausea, vomiting. : No deficits noted. Derm: No deficits noted. Musculoskeletal: No deficits noted. Historical: - Allergies: 12:16 Cipro; ko1 12:16 Codeine; ko1 - PMHx: 12:16 Diverticulitis; Hypercholesterolemia; Myocardial infarction; ko1 - PSHx: 12:16 Cholecystectomy; Stented artery; Right eye surger; ko1 - Immunization history:: Adult Immunizations unknown. - Infectious Disease History:: Denies. - Social history:: Smoking status: Patient/guardian denies using tobacco, but has a distant history of tobacco abuse. Screenin:18 [facility] ED Fall Risk Assessment (Adult) History of falling in the last 3 months, ko1 including since admission No falls in past 3 months (0 pts) Confusion or Disorientation No (0 pts) Intoxicated or Sedated No (0 pts) Impaired Gait No (0 pts) Mobility Assist Device Used No (0 pt) Altered Elimination No (0 pt) Score/Fall Risk Level 0 - 2 = Low Risk Oriented to surroundings, Maintained a safe environment, Educated pt \\T\\ family on fall prevention, incl call for assistance when getting out of bed, Assessed \\T\\ reinforced patient's understanding of fall precautions, Provided non-skid footwear, Hourly rounding (assess needs \\T\\ fall precautionary measures) done, Used ambulatory aids as needed (educated on \\T\\ assisted with), Used gait belt as appropriate. Abuse screen: Denies threats or abuse. Denies injuries from another. Nutritional screening: No deficits noted. Tuberculosis screening: No symptoms or risk factors identified. Assessment: 12:18 Reassessment: see triage note. ko1 13:00 General: Appears uncomfortable, Behavior is anxious, restless, Reports feeling ill for ss > 3 days, Denies fever. Pain: Complains of pain in abdomen Pain currently is 9 out of 10 on a pain scale. Quality of pain is described as "unable to describe" Is continuous. Cardiovascular: Capillary refill < 3 seconds is brisk in bilateral fingers. GI: Abdomen is non-distended, Reports diarrhea. EENT: Oral mucosa is moist. Derm: Skin is intact, is healthy with good turgor, Skin is dry, Skin is pink, warm \\T\\ dry. normal. 14:00 Reassessment: Given patient additional blanket upon request. Pt up to bedside commode ss at this time. Call light remains within reach. 15:00 Neuro: Level of Consciousness is awake, alert, obeys commands. Respiratory: Respiratory ss effort is even, unlabored, Respiratory pattern is regular, symmetrical. 16:00 Reassessment: Pillow and additional warm blanket given upon request. Small amount of ss water given upon request as well. OK per Vandana Foster NP. Pt is aware of admission for further evaluation. 16:18 Reassessment: Patient appears in no apparent distress at this time. Pt reports pain has ss improved after Dilaudid administration. Call light remains within reach. RR even and unlabored. Reassessment: awaiting room assignment. Neuro: Level of Consciousness is awake, alert. Respiratory: Airway is patent Respiratory effort is even, unlabored. 17:33 Reassessment: attempted to place patient into gown prior to transferring to room 417. ss Pt refused to get into gown. Attempted to call 4th floor, no answer. Called Aden Vangpermanent mold supervisor to notify and states OK. Vital Signs: 12:11 BP 124 / 80; Pulse 60; Resp 18; Temp 98; Pulse Ox 97% ; ko1 14:00 BP 129 / 75; Pulse 80; Resp 18; Pulse Ox 98% on R/A; ss 15:50 BP 115 / 65; Pulse 71; Resp 16; Pulse Ox 98% on R/A; ss 15:50 Refuses to provide pain number ss ED Course: 12:10 Patient arrived in ED. ko1 12:11 Cinthia Arnold, YANICK is Primary Nurse. ko1 12:11 Angela Newberry PA-C is PHCP. sb4 12:11 Darnell Benitez MD is Attending Physician. sb4 12:16 Triage completed. ko1 12:16 Arm band placed on right wrist. Patient placed in an exam room, on a stretcher, on ko1 youth nutritional monitor, on pulse oximetry, Patient notified of wait time. 12:18 Patient has correct armband on for positive identification. Allergy band placed. Placed ko1 in gown. Bed in low position. Call light in reach. Side rails up X2. Client placed on continuous cardiac and pulse oximetry monitoring. NIBP monitoring applied. site monitor on. Door closed. Noise minimized. Lights dimmed. Warm blanket given. 12:18 Maintain EMS IV. Dressing intact. Good blood return noted. Site clean \\T\\ dry. Gauge \\T\\ ko 1 site: 20g right FA. 12:28 Initial lab(s) drawn, by me, sent to lab. aa5 13:34 CT Abd/Pelvis - IV Contrast Only In Process Unspecified. EDMS 15:00 Provided Education on: Call light, fall prevention. ss 15:06 Dada Arango MD is Hospitalizing Provider. sb4 15:16 Inserted saline lock: 22 gauge in right forearm, using aseptic technique. nj1 16:26 No provider procedures requiring assistance completed. Patient admitted, IV remains in ss place. Administered Medications: 12:28 Drug: NS 0.9% IV 1000 ml IV at 1 bolus Per protocol; 1000 mL bolus Route: IV; Rate: 1 ko1 bolus; Site: left forearm; 15:21 Follow up: IV Status: Completed infusion; IV Intake: 1000ml ss 12:28 Drug: Ondansetron IVP 4 mg IVP once; over 2 minutes Route: IVP; Site: left antecubital; ko1 15:21 Follow up: Response: No adverse reaction ss 12:29 Drug: morphine IVP or IV 4 mg IVP once over 4 mins Route: IVP; Infused Over: 4 mins; ko1 Site: left forearm; 15:21 Follow up: Response: No adverse reaction; Pain is unchanged, physician notified; RASS: ss Restless (+1) 15:30 Drug: Piperacillin-Tazobactam IVPB 3.375 grams IVPB once over 60 mins; (mix in NS 100 ss mL) Route: IVPB; Infused Over: 60 mins; Site: right forearm; 16:30 Follow up: IV Status: Completed infusion ss 15:30 Drug: HYDROmorphone IVP 1 mg IVP once Route: IVP; Site: right forearm; ss 16:18 Follow up: Response: No adverse reaction; Pain is decreased; RASS: Alert and Calm (0) ss 16:32 Drug: metroNIDAZOLE IVPB 500 mg 100 ml IVPB at 200 ml/hr once over 30 mins Volume: 100 ss ml; Route: IVPB; Rate: 200 ml/hr; Infused Over: 30 mins; Site: right forearm; 17:10 Follow up: IV Status: Completed infusion ss Medication: 12:18 VIS not applicable for this client. ko1 Intake: 15:21 IV: 1000ml; Total: 1000ml. ss Outcome: 15:06 Decision to Hospitalize by Provider. sb4 16:26 Condition: good ss 16:26 Instructed on the need for admit, 17:32 Admitted to Med/surg accompanied by tech, via wheelchair, room 417, with chart, Report ss called to Stella 17:33 Patient left the ED. ss Signatures: Dispatcher [employer] Yessenia Cornelius, RN RN aa5 Juana Sanchez RN RN ss Cinthia Arnold RN RN ko1 Angela Newberry PAAlejandraC PA-C sb4 Abril Vidal RN RN nj1 Corrections: (The following items were deleted from the chart) 16:45 15:50 BP 115 / 65; Pulse 71bpm; Resp 16bpm; Pulse Ox 98% RA; Pain 11/01, Adult; ss ss
--- NOTE | 2023-08-07 15:07 | EDPHYS ---
Physician Documentation [facility] Name: Soco Gillis Jr Age: 73 yrs Sex: Male : 1950 Arrival Date: 08/07/2023 Time: 12:08 Bed 5 Private MD: ED Physician Darnell Benitez HPI: 08/06 12:13 This 73 yrs old Male presents to ER via Unassigned with complaints of abdominal pain. sb4 12:13 The patient presents with abdominal pain in the left lower quadrant. Onset: The sb4 symptoms/episode began/occurred 2 week(s) ago. The symptoms do not radiate. Associated signs and symptoms: Pertinent positives: nausea, vomiting, and diarrhea. 12:16 Abdominal pain for several weeks now. He was seen here initially and diagnosed with sb4 colitis, discharged with antibiotics, has finished them but the pain persists. He also endorses nausea and intermittent constipation and diarrhea. Historical: - Allergies: 12:16 Cipro; ko1 12:16 Codeine; ko1 - PMHx: 12:16 Diverticulitis; Hypercholesterolemia; Myocardial infarction; ko1 - PSHx: 12:16 Cholecystectomy; Stented artery; Right eye surger; ko1 - Immunization history:: Adult Immunizations unknown. - Infectious Disease History:: Denies. - Social history:: Smoking status: Patient/guardian denies using tobacco, but has a distant history of tobacco abuse. ROS: 12:16 Constitutional: Negative for fever, chills, and weight loss, sb4 12:16 Abdomen/GI: Positive for abdominal pain, nausea, vomiting, and diarrhea, 12:16 All other systems are negative, Exam: 12:16 Head/Face: Normocephalic, atraumatic. Eyes: Extra-ocular motions intact. Periorbital sb4 areas with no swelling, redness, or edema. Cardiovascular: Regular rate and rhythm with a normal S1 and S2. Respiratory: Lungs have equal breath sounds bilaterally, clear to auscultation and percussion. No rales, rhonchi or wheezes noted. No increased work of breathing, no retractions or nasal flaring. Skin: Warm, dry with normal turgor. Normal color with no rashes, no lesions, and no evidence of cellulitis. MS/ Extremity: Pulses equal, no cyanosis. Neurovascular intact. Full, normal range of motion. Neuro: Awake and alert, GCS 15, oriented to person, place, time, and situation. Motor strength 5/5 in all extremities. Sensory grossly intact. 12:16 Constitutional: The patient appears alert, awake, in obvious pain, uncomfortable, 12:16 Abdomen/GI: Inspection: abdomen appears normal, Bowel sounds: diminished, in the suprapubic area, right lower quadrant and left lower quadrant, Palpation: soft, moderate abdominal tenderness, in the right lower quadrant and left lower quadrant, Vital Signs: 12:11 BP 124 / 80; Pulse 60; Resp 18; Temp 98; Pulse Ox 97% ; ko1 14:00 BP 129 / 75; Pulse 80; Resp 18; Pulse Ox 98% on R/A; ss 15:50 BP 115 / 65; Pulse 71; Resp 16; Pulse Ox 98% on R/A; ss 15:50 Refuses to provide pain number ss MDM: 12:12 Patient medically screened. sb4 15:05 Data reviewed: vital signs, nurses notes, lab test result(s), radiologic studies, I sb4 have discussed the patient's presentation/case with the attending Emergency Department Physician; and as a result, I will admit patient. Consideration of Admission/Observation Patient was admitted/placed on observation. Management of patient was discussed with the following: Furniture Repair Technician: Dr. Webster, agrees to consult. Counseling: I had a detailed discussion with the patient and/or guardian regarding the historical points, exam findings, and any diagnostic results supporting the discharge/admit diagnosis, lab results, radiology results, the need for further work-up and treatment in the hospital. 08/06 12:12 Order name: CBC with Diff; Complete Time: 12:58 sb4 08/06 12:12 Order name: CMP; Complete Time: 13:11 sb4 08/06 12:12 Order name: Lipase; Complete Time: 13:11 sb4 08/06 16:17 Order name: Urinalysis w/ reflexes EDMS 08/06 16:17 Order name: CBC with Automated Diff EDMS 08/06 16:17 Order name: CBC with Automated Diff EDMS 08/06 16:17 Order name: CBC with Automated Diff EDMS 08/06 16:17 Order name: CBC with Automated Diff EDMS 08/06 16:17 Order name: Comprehensive Metabolic Panel EDMS 08/06 16:17 Order name: Comprehensive Metabolic Panel EDMD 08/06 16:17 Order name: Comprehensive Metabolic Panel EDMD 08/06 16:17 Order name: Comprehensive Metabolic Panel EDMD 08/06 16:17 Order name: Magnesium EDMD 08/06 16:17 Order name: Magnesium EDMD 08/06 16:17 Order name: Phosphorus EDMD 08/06 16:17 Order name: Phosphorus EDMD 08/06 16:17 Order name: Blood Culture EDMD 08/06 12:12 Order name: CT Abd/Pelvis - IV Contrast Only; Complete Time: 14:42 sb4 08/06 16:17 Order name: CONS Physician Consult EDMD 08/06 12:12 Order name: IV Saline Lock; Complete Time: 12:33 sb4 08/06 12:12 Order name: Labs collected and sent; Complete Time: 12:33 sb4 Administered Medications: 12:28 Drug: NS 0.9% IV 1000 ml IV at 1 bolus Per protocol; 1000 mL bolus Route: IV; Rate: 1 ko1 bolus; Site: left forearm; 15:21 Follow up: IV Status: Completed infusion; IV Intake: 1000ml ss 12:28 Drug: Ondansetron IVP 4 mg IVP once; over 2 minutes Route: IVP; Site: left antecubital; ko1 15:21 Follow up: Response: No adverse reaction ss 12:29 Drug: morphine IVP or IV 4 mg IVP once over 4 mins Route: IVP; Infused Over: 4 mins; ko1 Site: left forearm; 15:21 Follow up: Response: No adverse reaction; Pain is unchanged, physician notified; RASS: ss Restless (+1) 15:30 Drug: Piperacillin-Tazobactam IVPB 3.375 grams IVPB once over 60 mins; (mix in NS 100 ss mL) Route: IVPB; Infused Over: 60 mins; Site: right forearm; 16:30 Follow up: IV Status: Completed infusion ss 15:30 Drug: HYDROmorphone IVP 1 mg IVP once Route: IVP; Site: right forearm; ss 16:18 Follow up: Response: No adverse reaction; Pain is decreased; RASS: Alert and Calm (0) ss 16:32 Drug: metroNIDAZOLE IVPB 500 mg 100 ml IVPB at 200 ml/hr once over 30 mins Volume: 100 ss ml; Route: IVPB; Rate: 200 ml/hr; Infused Over: 30 mins; Site: right forearm; 17:10 Follow up: IV Status: Completed infusion ss Disposition: 19:06 Co-signature as Attending Physician, Darnell Benitez MD I reviewed the patient's care rt provided by the Advanced Practice Provider and agree with the diagnosis and treatment plan. Disposition Summary: 08/07/23 15:06 Hospitalization Ordered Notes: Hospitalization Status: Inpatient Admission sb4 Provider: Dada Arango sb4 Location: Telemetry/[facility] (Inpatient) sb4 Condition: Fair sb4 Problem: new sb4 Symptoms: are unchanged sb4 Bed/Room Type: Standard sb4 Room Assignment: 417(08/07/23 16:34) eb Diagnosis - sigmoid colitis sb4 Forms: - Medication Reconciliation Form sb4 - SBAR form sb4 - Leadership Thank You Letter sb4 Signatures: Dispatcher [employer] Juana Cleaning RN RN Hoda Alvarez RN YANICK Josie Chong Kathy RN RN koAngela Jara, PA-C PA-C sb4 Darnell Benitez MD MD rt Corrections: (The following items were deleted from the chart) 16:34 15:06 sb4 eb
[2023-08-07] MEDS ORDERED: METRONIDAZOLE 500mg IVPB 500 MG/100 ML BAG IV ONE (15:27)
[2023-08-07] MEDS ORDERED: HYDROMORPHONE HCL 1 MG/ML INJ ONE (15:27)
[2023-08-07] MEDS ORDERED: PIPERACIL/TAZO 3.375 GM VIAL IV ONE (15:27)
[2023-08-07] MEDS ORDERED: NA CHLORIDE 0.9% 100 ML ONE (15:28)
--- NOTE | 2023-08-07 16:11 | P.HP ---
Certification for Inpatient Patient admitted to: Inpatient With expected LOS: >2 Midnights Patient will require the following post-hospital care: None Practitioner: I am a practitioner with admitting privileges, knowledge of patient current condition, hospital course, and medical plan of care. Services: Services provided to patient in accordance with Admission requirements found in Title 42 Section 412.3 of the Code of Federal Regulations <Vandana Foster - Last Filed: 08/07/23 16:37> Patient History Date of Service: 08/07/23 Reason for admission: progressive diverticulitis with failed outpt therapy History of Present Illness: Mr. Gillis is a 73-year-old gentleman with a history of coronary artery disease, hypertension, hyperlipidemia, glaucoma, and diverticulitis. He was seen on July 13 with an exacerbation of his diverticulitis. His record indicates he is allergic to Cipro. He was given Augmentin and Flagyl to take as an outpatient. He states he finished his antibiotics but his pain has gotten worse. He has been having significant nausea and diarrhea, no vomiting. In the emergency department, laboratory evaluation reveals a white count of 12.9, H&H 14.9/45.6, electrolytes are normal. Vital signs stable, afebrile. He is a thin man and appears mildly dehydrated. Imaging interpreted by Dr. Huerta with impression "progressive or more conspicuous lobulated marginally enhancing fluid collection with punctate foci of gas anteriorly, along the adventitia of the sigmoid colon wall interposed against the left pelvic sidewall, suggesting a contained leak, in the setting of incompletely resolved diverticulitis. No free air or free fluid. Nonobstructing right renal lower pole [address] Webster was consulted by the ED provider and will see the patient. Will obtain blood cultures, C. difficile, and begin Zosyn 3.375 g IV piggyback every 8 hours at 2100. 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 Has not driven in 32yr. 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 Moved here from [place]. Drinks Erendira beer, smokes 1/2ppd cigarettes, smokes marijuana and combines with gummies sometimes - Family History Family History: Reviewed- Non-Contributory - Social History Smoking Status: Current every day smoker Alcohol use: Yes CD- Drugs: Yes Caffeine use: Yes Place of Residence: Home <FosterVandana - Last Filed: 08/07/23 16:37> Date of Service: 08/07/23 <Dada Arango - Last Filed: 08/07/23 17:29> Allergies ciprofloxacin [From Cipro] Allergy (Verified 03/13/23 22:49) Hives/Rash codeine Allergy (Verified 03/13/23 22:49) Itching Home Medications: Aspirin Chewable [Aspirin Chewable*] 1 tab PO DAILY 03/14/23 Famotidine [Pepcid*] 1 tab PO BID 03/14/23 Nitroglycerin [Nitrostat*] 1 tab SL UD 03/14/23 Simvastatin [Zocor] 1 tab PO BEDTIME 03/14/23 carvediloL [Carvedilol] 1 tab PO BID 03/14/23 levoFLOXacin [Levaquin] 500 mg PO DAILY #12 tab 03/15/23 metroNIDAZOLE [Flagyl] 500 mg PO TID #36 03/15/23 Review of Systems 10-point ROS is otherwise unremarkable General: Weakness, Malaise Gastrointestinal: Nausea, Abdominal Pain, Diarrhea, As per HPI <Vandana Foster - Last Filed: 08/07/23 16:37> Physical Examination - Physical Exam General: Alert, Oriented x3, Cachectic HEENT: Normocephalic, Other (right eye clouded, uses drops for glaucoma - NF. Encouraged pt to have them brought to the hospital.) Neck: JVD not distended Respiratory: Normal air movement Cardiovascular: Normal pulses, Regular rate/rhythm Capillary refill: <2 Seconds Gastrointestinal: Non-distended Musculoskeletal: No clubbing Integumentary: No erythema, No cyanosis Neurological: Normal speech, Abnormal tone Lymphatics: No axilla or inguinal lymphadenopathy External genitalia: Deferred Rectal: Deferred - Studies Laboratory Data (last 24 hrs) 08/07/23 08/07/23 12:28 12:28 WBC 12.90 H Hgb 14.9 Hct 45.6 Plt Count 182 Sodium 139 Potassium 3.9 BUN 10 Creatinine 0.88 Glucose 91 Total Bilirubin 0.5 AST 19 ALT 22 Alkaline Phosphatase 88 Lipase 15 <Vandana Foster - Last Filed: 08/07/23 16:37> - Studies Laboratory Data (last 24 hrs) 08/07/23 08/07/23 12:28 12:28 WBC 12.90 H Hgb 14.9 Hct 45.6 Plt Count 182 Sodium 139 Potassium 3.9 BUN 10 Creatinine 0.88 Glucose 91 Total Bilirubin 0.5 AST 19 ALT 22 Alkaline Phosphatase 88 Lipase 15 <Dada Arango - Last Filed: 08/07/23 17:29> Assessment and Plan - Plan Diverticulitis Aggressive IV hydration Blood cultures, Cdiff pending Zosyn 3.375gm IVPB q 8h, (just finished augmentin and flagyl outpatient) Outpatient colonoscopy in 8-12 weeks Pain control Monitor for perforation Consult Dr. Webster (done from ED) CAD: ASA EC 81mg po BID as home med schedule HTN: Carvedilol 6.25mg po BID HLD: Simvastatin 40mg po q hs Glaucoma: Have someone bring drops and use as directed DVT/GI prophylaxis Lovenox/protonix - Advance Directives Does patient have a Living Will: No Does patient have a Durable POA for Healthcare: No - Code Status/Comfort Care Code Status Assessed: Yes (Full) <Vandana Foster - Last Filed: 08/07/23 16:37> - Plan Pt seen and examined. I agree with the note by the WRAPPER LAYER AND EXAMINER SOFT WORK. Pt is a 73 yo male with past medical history of diverticulosis, HLD and CAD who presents with abdominal pain. The left lower quadrant abd pain started 2 weeks ago and non-radiating. It progressively worsened and became associated nausea, vomiting, and diarrhea. Of note, pt was initially seen in the ER, diagnosed with colitis, and was later discharged with antibiotics. At home, the abd pain persisted and pt came to the ER for evaluation. On admission lab studies show wbc 12.9, hgb 14.9, plt 182, Na 139, K 3.9, Cr 0.[address] abd shows worsening colitis. At bedside, pt is in NAD. A/P: Colitis: CT abd shows worsening colitis. Will continue iv zosyn and f/u blood cx. HLD: statin CAD: Continue home med. DVT ppx: lovenox Code: full. <Dada Arango C - Last Filed: 08/07/23 17:29>
[2023-08-07] MEDS ORDERED: SODIUM CHLORIDE 0.9% 10ML INJ IV PRN (16:58)
[2023-08-07 17:57] VITALS: BMI 20.3
[2023-08-07] MEDS: NA CHLORIDE 0.9% 1,000 ML IV SCH (18:10)
[2023-08-07] MEDS: carvediloL 6.25 MG TAB PO SCH (19:30)
[2023-08-07] MEDS: ATORVASTATIN 20 MG TAB PO SCH (21:04)
[2023-08-07] MEDS: ASPIRIN EC 81 MG TAB PO SCH (21:04)
[2023-08-07] MEDS: PANTOPRAZOLE 40 MG INJ IVP SCH (21:05)
[2023-08-08] MEDS: PIPER TAZO 3.375 GM in NA CHLORIDE 0.9% 100 ML IV SCH (00:41)
[2023-08-08 03:50] LABS: STOOL CONSISTENCY Formed/Solid (soft)
[2023-08-08 03:51] LABS: C.diff Antigen/Toxin Ag pos : Tox neg (NEG : NEG); CDIFF INTERNAL NEG CONTROL White Background (WHITE BKGD)
[2023-08-08] MEDS: MORPHINE 4 MG/ML SYR IV PRN (05:53)
[2023-08-08 06:33] LABS: Absolute Lymphocytes (CBC) 0.8 K/uL (0.7-4.9); Absolute Monocytes 0.9 K/uL (0.1-1.3); Absolute Neutrophil 8.9 K/uL (1.8-8.0); Basophils % 0.4 % (0-1.3); Eosinophils % 0.4 % (0-4.4); Hemoglobin 13.7 g/dL (13.6-17.9); Lymphocytes % 7.9 % (15.3-44.8); MCH 30.7 pg (27.0-35.0); MCHC 33.5 g/dL (32.0-36.0); MCV 91.6 fL (80-100); MPV 9.6 fL (7.6-11.3); Monocytes % 8.8 % (3.3-12.3); Neutrophils % 82.5 % (41.7-73.7); Platelets 155 thou/uL (152-406); RBC Red Blood Cell Count 4.48 M/uL (4.33-5.43); Red Cell Distribution Width 13.9 % (12.1-15.2)
[2023-08-08 06:39] LABS: Albumin/Globulin Ratio 0.8 (1.1-1.8); Bilirubin Total 0.8 mg/dL (0.2-1.0); Globulin 3.6 g/dL (2.3-3.5); Magnesium 1.9 mg/dL (1.6-2.4); Phosphorus 2.6 mg/dL (2.5-4.9); Protein, Total 6.6 g/dL (6.4-8.2)
[2023-08-08] MEDS: ENOXAPARIN 40 MG/0.4 ML SQ SCH (08:41)
--- NOTE | 2023-08-08 09:19 | P.PN ---
Subjective Date of Service: 08/08/23 Chief Complaint: progressive diverticulitis with failed outpt therapy Mr. Gillis is a 73-year-old gentleman with a history of coronary artery disease, hypertension, hyperlipidemia, glaucoma, and diverticulitis. He was seen on July 13 with an exacerbation of his diverticulitis. His record indicates he is allergic to Cipro. He was given Augmentin and Flagyl to take as an outpatient. He states he finished his antibiotics but his pain has gotten worse. He has been having significant nausea and diarrhea, no vomiting. Admitted for diverticulitis, surgery to [facility], IV antibiotics lack of transportation, no reported PCP, lives with ex [id number] Physical Examination - Physical Exam General: Alert, Oriented x3, Cachectic HEENT: Normocephalic, Other (right eye clouded, uses drops for glaucoma - NF. Encouraged pt to have them brought to the hospital.) Neck: JVD not distended Respiratory: Normal air movement Cardiovascular: Normal pulses, Regular rate/rhythm Capillary refill: <2 Seconds Gastrointestinal: Non-distended, positive bowel sounds, left lower qu adrant/suprapubic tenderness Musculoskeletal: No clubbing Integumentary: No erythema, No cyanosis Neurological: Normal speech, Abnormal tone <Heather Romero - Last Filed: 08/08/23 18:59> Date of Service: 08/10/23 <Lorene Yeboah - Last Filed: 08/10/23 08:13> Review of Systems per HPI <Heather Romero - Last Filed: 08/08/23 18:59> Physical Examination - Vital Signs Temperature: 99.5 F Blood Pressure: 111/54 Pulse: 71 Respirations: 23 Pulse Ox (%): 97 - Studies Laboratory Data (last 24 hrs) 08/07/23 08/07/23 12:28 12:28 WBC 12.90 H Hgb 14.9 Hct 45.6 Plt Count 182 Sodium 139 Potassium 3.9 BUN 10 Creatinine 0.88 Glucose 91 Total Bilirubin 0.5 AST 19 ALT 22 Alkaline Phosphatase 88 Lipase 15 <Heather Romero - Last Filed: 08/08/23 18:59> Assessment And Plan - Plan Assessment and Plan Recurrent diverticulitis Aggressive IV hydration Blood cultures, Cdiff neg Zosyn 3.375gm IVPB q 8h, (just finished augmentin and flagyl outpatient) Outpatient colonoscopy in 8-12 weeks Pain control Monitor for perforation Consult Dr. Webster (done from ED) 08/06 Advance diet to clear liquids, Per surgery will need a repeat colonoscopy in 6 to 8 weeks with GI follow-up outpatient lack of transportation, no reported PCP, lives with ex [id number] CAD: ASA EC 81mg po BID as home med schedule HTN: Carvedilol 6.25mg po BID HLD: Simvastatin 40mg po q hs Tobacco use Marijuana use Educate on cessation Glaucoma: Have someone bring drops and use as directed DVT/GI prophylaxis Lovenox/protonix disposition: Home Discharge Plan: Home - Code Status/Comfort Care Code Status: Full Code Critical Care: No Time Spent Managing PTS Care (In Minutes): 35 <Heather Romero - Last Filed: 08/08/23 18:59> Date of Service: 08/08/23 Patient chart was reviewed and patient was seen and examined. ROLO history and physical reviewed as well. Agree with the assessment and plan; Most of the MDM was done by myself and plan of care was discussed with ROLO as well as the patient. Anticipated length of stay is 3-4 days. <Lorene Yeboah - Last Filed: 08/10/23 08:13>
--- NOTE | 2023-08-08 16:17 | CON ---
Date of Consultation: 08/07/2023 Reason For Consultation: Abdominal pain. History Of Present Illness: The patient is a 73-year-old gentleman with multiple medical problems, w fabiola was admitted with an exacerbation of his diverticulitis last month and was on oral antibiotics, wh ich he finished as an outpatient, but his symptoms have gotten worse. Came to the emergency room. Sandy nolasco was evaluated and looks like there is slight progression of his diverticular disease. Therefore, sandy nolasco was admitted for IV antibiotics and I was consulted. He is awake and alert. He states that he had a colonoscopy in [place] last year for which he did not follow up and does not know the results. Sandy nolasco also had diverticulitis last fall for which I saw him and was treated with antibiotics and he impro reagan, but he never followed up with the colorectal surgeons. At this time, he denies any nausea or vo miting. No blood in his stool. No diarrhea or constipation. No fever or chills. Just increasing p ain in the suprapubic and left lower quadrant region. No sore throat, runny nose, cough, headaches, or dizziness. No chest pain. Review of Systems: Otherwise unremarkable. Please note, the patient states that he has a history of syphilis for which he was treated. Past Medical History: Hypertension, coronary artery disease, hyperlipidemia. Past Surgical History: CABG, cholecystectomy, and cataract surgery. Allergies: CIPRO AND CODEINE. Social History: The patient does smoke about half a pack a day. Drinks alcohol and smokes marijuana and sometimes cocaine. Physical Examination: Vital Signs: Currently, temperature of 99.5, otherwise vital signs are stable. General: He is awake, alert, oriented x3. Head and Neck: No masses. Chest: Clear. Heart: S1, S2. Abdomen: Soft, nondistended. Positive bowel sounds. Positive left lower quadrant and suprapubic mi ld tenderness. No rebound, rigidity, or guarding. Extremities: Adequately perfused, nontender. Neuro: Nonfocal. Laboratory Data: White count on admission was 12.9, currently is 10.7 with a slight left shift. Jil carla reviewed. His C diff is antigen positive, but tox negative A, consistent with previous histor y of C diff colitis, however, is not effective at this time. CT of the abdomen and pelvis reviewed, which shows progressive and more conspicuous lobulated marginal enhancing fluid collection with punct ate foci of gas anteriorly along the adventitia of the sigmoid colon wall interposed against the left pelvic sidewall suggesting a contained leak in the setting or incompletely resolved diverticulitis. No free air or free fluid. Nonobstructing right renal lower pole 8 mm calculus. Assessment: Recurrent, acute sigmoid diverticulitis, complex in nature. Recommendation: N.p.o. today. IV antibiotics. As his symptoms improve, we can begin clear liquids and advance diet as tolerated. I would recommend getting an ID consult on this patient to see if he needs a prolonged treatment with IV antibiotics as he has failed outpatient oral antibiotic therapy. After his initial treatment, the patient will need a colonoscopy in 6 to 8 weeks with a GI followup and then following which he should be evaluated by a colorectal surgeon for resection of this disease : Plan of care discussed in detail with Dr. Yeboah. RADHA/BLAYNE Voice ID: [id number] Report ID: [id number]
[2023-08-08 17:19] LABS: Sqamous Epithelial None Seen /HPF (None Seen); Urine Bacteria None Seen /HPF (<20); Urine Bilirubin NEGATIVE (Negative); Urine Blood Negative (Negative); Urine Clarity Clear (Clear); Urine Color Light-Yellow (Yellow); Urine Culture Reflex Order NOT NEEDED; Urine Glucose NEGATIVE (Negative); Urine Ketones 3+ (Negative); Urine Microscopic Reflex YN ORDER UMIC; Urine Mucus Slight /HPF (None Seen); Urine Nitrite NEGATIVE (Negative); Urine Protein TRACE (Negative); Urine RBC <5 /HPF (None Seen); Urine Urobilinogen Normal (Normal); Urine WBC <5 /HPF (<5); Urine Yeast (Budding) Trace /HPF (None Seen)
[2023-08-09] MEDS: ACETAMINOPHEN 500 MG TAB PO PRN (04:59)
[2023-08-09 07:05] LABS: Albumin 2.6 g/dL (3.4-5.0); Albumin/Globulin Ratio 0.8 (1.1-1.8); Anion Gap 10.4 mEq/L (5.0-15.0); Bilirubin Total 0.8 mg/dL (0.2-1.0); Globulin 3.3 g/dL (2.3-3.5); Potassium 3.4 mEq/L (3.5-5.1); Protein, Total 5.9 g/dL (6.4-8.2)
[2023-08-09 07:07] LABS: Absolute Eosinophils 0.1 K/uL (0-0.5); Absolute Lymphocytes (CBC) 0.7 K/uL (0.7-4.9); Absolute Neutrophil 6.6 K/uL (1.8-8.0); Basophils % 0.5 % (0-1.3); Eosinophils % 0.7 % (0-4.4); Hematocrit 37.2 % (39.6-49.0); Hemoglobin 12.3 g/dL (13.6-17.9); Lymphocytes % 8.5 % (15.3-44.8); MCH 30.5 pg (27.0-35.0); MCHC 33.2 g/dL (32.0-36.0); MPV 9.9 fL (7.6-11.3); Monocytes % 12.1 % (3.3-12.3); Neutrophils % 78.2 % (41.7-73.7); Platelets 121 thou/uL (152-406); RBC Red Blood Cell Count 4.04 M/uL (4.33-5.43); Red Cell Distribution Width 13.7 % (12.1-15.2)
[2023-08-09] MEDS: MAGNESIUM SULFATE 1 gm IVPB 1 GM/100 ML BAG IV ONE (08:09)
[2023-08-09] MEDS: POTASSIUM CL SA 10 MEQ TAB PO ONE (08:18)
--- NOTE | 2023-08-09 09:57 | P.CNS ---
Date of Consult: 08/09/23 Reason for Consult: perforated diverticulum w/ contained abscess Chief Complaint: progressive diverticulitis with failed outpt therapy History of Present Illness: "73-year-old male with a history of coronary artery disease, hypertension, hyperlipidemia, glaucoma, and diverticulitis. He was seen on July 13 with an exacerbation of his diverticulitis. His record indicates he is allergic to Cipro. He was given Augmentin and Flagyl to take as an outpatient. He states he finished his antibiotics but his pain has gotten worse. He has been having significant nausea and diarrhea, no vomiting. In the emergency department, laboratory evaluation reveals a white count of 12.9, H&H 14.9/45.6, electrolytes are normal. Vital signs stable, afebrile. Imaging reported "progressive or more conspicuous lobulated marginally enhancing fluid collection with punctate foci of gas anteriorly, along the adventitia of the sigmoid colon wall interposed against the left pelvic sidewall, suggesting a contained leak, in the setting of incompletely resolved diverticulitis. No free air or free fluid. Nonobstructing right renal lower pole [address] Webster was consulted. 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 Has not driven in 32yr. 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 Moved here from [place]. Drinks Erendira beer, smokes 1/2ppd cigarettes, smokes marijuana and combines with gummies sometimes - Social History Smoking Status: Former smoker Alcohol use: Yes CD- Drugs: Yes Caffeine use: No Place of Residence: Home Review of Systems 10-point ROS is otherwise unremarkable General: Weakness Gastrointestinal: Abdominal Pain (LLQ and suprapubic) Physical Examination Temp Pulse Resp BP Pulse Ox 98.1 F 70 18 126/67 96 08/09/23 08:00 08/09/23 08:18 08/09/23 08:00 08/09/23 08:18 08/09/23 08:00 General: In no apparent distress, Oriented x3 HEENT: Atraumatic, Normocephalic Respiratory: Diminished, Other (nonlabored respirations on room air) Cardiovascular: No edema, Regular rate/rhythm Gastrointestinal: Normal bowel sounds, Non-distended, Tenderness (LLQ and left inguinal area) Musculoskeletal: Other (ambulatory) Integumentary: No rashes Neurological: Normal speech, Normal strength at 5/5 x4 extr Laboratory Data - Reviewed Microbiology data - Reviewed Imagings Data: - Reviewed Conclusions/Impression: Problem List Perforated Diverticulum with contained Abscess Diverticulitis Coronary Artery Disease Hypertension Hyperlipidemia COPD Glaucoma Hx Syphilis Hx Hepatitis C Nicotine dependence Marijuana/Cocaine use Perforated Diverticulum with contained Abscess - failed outpatient anitbiotic therapy on Augmentin and Flagyl - Currently on Zosyn IV (started 08/07) - CT abdomen pelvis w contrast 08/06: "Progressive or more conspicuous lobulated marginally enhancing fluid collection with punctate foci of gas anteriorly, along the adventitia of the sigmoid colon wall wall interposed against the left pelvic sidewall, suggesting a contained leak, in the setting of incompletely resolved diverticulitis. No free air or free fluid. Nonobstructing right renal lower pole 8 mm calculus." - pt reports having colonscopy in November 2022 in [place]. Unknown results. Patient also reports possible c.diff diagnosis at the time. - C.diff toxin negative, antigen positive. History of Syphilis - patient reports being treated 3 times for syphilis - most recently reports being treated for syphilis while hospitalized at a facility in [place]. He underwent colonoscopy ~November 2022, treated for syphilis, also found to have C.diff for which he reports being placed on isolation and treated with some antibiotic he cannot remember the name of. - Obtain RPR titer History Hepatitis C - previously on treatment - ALT/AST within normal limits Recommendations - abdominal abscess: continue IV antibiotic therapy for 10-14 days given failure on PO antibiotics as outpatient - Hx syphilis: Obtain RPR titer - recommend obtaining HIV screen. discussed with patient who is agreeable to HIV testing - c.diff antigen positive, toxin negative: no c.diff treatment indicated at this time - Monitor CBC, BMP, fever trends - Continue supportive care Case discussed with Zaina Mccray
--- NOTE | 2023-08-09 13:53 | P.PN ---
Date of Service: 08/09/23 (Code Valentin) CODE VALENTIN was called 05/29/2016. I responded from the emergency room, patient was pulseless upon arrival, apneic being bagged by respiratory therapy and CPR had been initiated prior to my arrival. Patient intubated using 7.5 ET tube, Mac 4 blade, no anesthesia or sedative, first-pass success, with good color change and chest rise. No spontaneous vocal cord movements noted. Patient was noted to be in ventricular fibrillation, shocked 1 time at 200 J by me with ROSC achieved shortly thereafter. Central line placed to left femoral vein, triple-lumen, cleansed with Hibiclens, single attempt, tolerated well, no complications. Central line dressed sterile procedure. Please see code sheet for full medication administration and timeline. Care of patient passed over to Dr. Yeboah
[2023-08-09] MEDS ORDERED: NOREPINEPHRINE 8 MG in D5W 250 ML IV SCH (14:00)
[2023-08-09 14:10] LABS: Absolute Basophils 0.1 K/uL (0-0.5); Absolute Lymphocytes (CBC) 2.1 K/uL (0.7-4.9); Absolute Monocytes 0.6 K/uL (0.1-1.3); Absolute Neutrophil 4.7 K/uL (1.8-8.0); Basophils % 1.2 % (0-1.3); Eosinophils % 0.7 % (0-4.4); Hematocrit 44.3 % (39.6-49.0); Hemoglobin 14.3 g/dL (13.6-17.9); Lymphocytes % 28.4 % (15.3-44.8); MCH 30.2 pg (27.0-35.0); MCHC 32.2 g/dL (32.0-36.0); MCV 93.7 fL (80-100); MPV 10.2 fL (7.6-11.3); Monocytes % 7.7 % (3.3-12.3); Nucleated Red Blood Cells % 0.1 % (0-0); Platelets 120 thou/uL (152-406); RBC Red Blood Cell Count 4.73 M/uL (4.33-5.43); Red Cell Distribution Width 14.1 % (12.1-15.2)
[2023-08-09 14:14] LABS: PT Prothrombin Time 15.8 SECONDS (9.5-12.5); Protime INR 1.45
[2023-08-09] MEDS ORDERED: DOPAMINE/D5W 400 MG/250 ML BAG IV SCH (14:15)
[2023-08-09 14:25] LABS: Albumin 2.6 g/dL (3.4-5.0); Anion Gap 13.3 mEq/L (5.0-15.0); Bilirubin Total 0.6 mg/dL (0.2-1.0); Potassium 4.3 mEq/L (3.5-5.1); Protein, Total 6.2 g/dL (6.4-8.2)
[2023-08-09 14:26] LABS: Albumin/Globulin Ratio 0.7 (1.1-1.8); Globulin 3.6 g/dL (2.3-3.5); Magnesium 2.5 mg/dL (1.6-2.4)
[2023-08-09 14:34] LABS: Troponin High Sensitivity 69.1 pg/mL (<58.9)
[2023-08-09] MEDS: DEXMEDETOMIDINE HCL 1,000 MCG in NA CHLORIDE 0.9% 490 ML IV SCH (14:35)
[2023-08-09] MEDS ORDERED: NA CHLORIDE 0.9% 250 ML IV PRN (14:41)
[2023-08-09] MEDS ORDERED: FENTANYL CITR 100 MCG/2 ML ONE (14:43)
[2023-08-09] MEDS ORDERED: LORazepam 2 MG/ML VIAL ONE ×3 (14:48→22:02)
[2023-08-09] MEDS ORDERED: ALBUTEROL 2.5 MG/3 ML NEB SOL NEB PRN (14:57)
[2023-08-09] MEDS ORDERED: IPRATROPIUM BROM 0.5MG/2.5ML NEB PRN (14:58)
[2023-08-09] MEDS: NOREPINEPHRINE 4 MG in D5W 250 ML IV SCH (15:11)
[2023-08-09] MEDS: FENTANYL CITR 100 MCG/2 ML IV PRN (15:12)
[2023-08-09] MEDS: LORazepam 2 MG/ML VIAL IV PRN (15:13)
--- NOTE | 2023-08-09 15:32 | RAD REPORT ---
[facility]16 [facility] CLINICAL HISTORY: INTUBATION- S/P CODE BLUE COMPARISON: Chest Single View dated 07/14/2023; Chest Single View dated 06/21/2023 TECHNIQUE: Portable AP view of the chest. FINDINGS: Patchy airspace opacity patient throughout right upper to midlung, sparing the right base. Endotracheal tube in satisfactory position, terminating approximately 5 cm above the mara. Defibri llator pad obscures evaluation of the left hilum. No pneumothorax or effusion. The cardiomediastinal contours are unchanged with sequelae of median sternotomy, CABG, and atrial appendage clip. IMPRESSION: Patchy right upper to midlung opacities, concerning for aspiration or pneumonia.
--- NOTE | 2023-08-09 15:38 | PN ---
Date of Progress Note: 08/09/2023 Subjective: Patient is awake, alert. No complaint. No pain. Tolerating clear liquids. Objective: Vitals: Stable. Afebrile. Abdomen: Soft, nondistended, nontender. Positive bowel sounds. Laboratory Data: Shows white count to be 8.4. Assessment: Recurrent complex sigmoid diverticulitis. Recommendations: Continue IV antibiotics. Discussed the case with ID and the hospitalist team and r ecommended longer period of IV antibiotics. Advance diet slowly. No need for any surgical intervent ion at this time. /MODL Voice ID: [id number] Report ID: [id number]
[2023-08-09] MEDS ORDERED: METHYLPREDNISOLONE 125 MG INJ ONE (17:01)
[2023-08-09] MEDS ORDERED: NA CHLORIDE 0.9% 100 ML ONE (17:02)
[2023-08-09] MEDS ORDERED: PIPERACIL/TAZO 3.375 GM VIAL IV ONE (17:02)
[2023-08-09] MEDS: METHYLPREDNISOLONE 125 MG INJ IV SCH (17:08)
[2023-08-09] MEDS ORDERED: MIDAZOLAM HCL 2 MG/2 ML INJ ONE (17:09)
[2023-08-09] MEDS: MIDAZOLAM HCL 2 MG/2 ML INJ IV PRN (17:10)
--- NOTE | 2023-08-09 18:06 | P.PN ---
Subjective Date of Service: 08/09/23 Chief Complaint: progressive diverticulitis with failed outpt therapy CODE BLUE called due to patient found unresponsive, CPR was initiated Patient was intubated, transferred to ICU for mechanical ventilation, History of uncontrolled/untreated COPD, Solu-Medrol, nebs ordered for acute hypoxic respiratory failure Physical Examination - Physical Exam General: Alert and responsive HEENT: Normocephalic, Other (right eye clouded, uses drops for glaucoma - NF. Encouraged pt to have them brought to the hospital.) Neck: JVD not distended Respiratory: Normal air movement Cardiovascular: Normal pulses, Regular rate/rhythm Capillary refill: <2 Seconds Gastrointestinal: Non-distended, positive bowel sounds, left lower quadrant/suprapubic tenderness Musculoskeletal: No clubbing Integumentary: No erythema, No cyanosis Neurological: Normal speech, Abnormal tone <Heather Romero - Last Filed: 08/09/23 18:07> Date of Service: 08/10/23 Physical exam was done prior to CODE BLUE and intubation <Lorene Yeboah - Last Filed: 08/10/23 08:13> Review of Systems Per HPI <Heather Romero - Last Filed: 08/09/23 18:07> is unable to be obtained <Lorene Yeboah - Last Filed: 08/10/23 08:13> Physical Examination - Vital Signs Temperature: 96.9 F Blood Pressure: 122/82 Pulse: 91 Respirations: 20 Pulse Ox (%): 100 <Heather Romero - Last Filed: 08/09/23 18:07> - Physical Exam General: Unresponsive HEENT: Other (ET tube in place-BRB in ET tube) Respiratory: Diminished (right side) <Lorene Yeboah - Last Filed: 08/10/23 08:13> Assessment And Plan - Plan Assessment and Plan Acute hypoxic respiratory failure secondary to respiratory arrest COPD exacerbation COPD poorly controlled Status post CODE BLUE called patient intubated, placed on mechanical ventilation, Pulmonary consulted, nebs, Solu-Medrol added NG tube placed to low intermittent suction, diet changed to n.p.o. CT of the chest PE protocol ordered ABG ordered Septic shock secondary to respiratory arrest Lactic acidosis likely secondary to respiratory arrest status post CPR NSTEMI, elevated troponin Procalcitonin elevated 0.10, lactic 3.5, repeat pending Levophed for hypotension titrate MAP of 65 Dopamine ordered, Haldol, fentanyl for sedation Trend troponin Recurrent diverticulitis Aggressive IV hydration Blood cultures, Cdiff neg Zosyn 3.375gm IVPB q 8h, (just finished augmentin and flagyl outpatient) Outpatient colonoscopy in 8-12 weeks Pain control Monitor for perforation Consult Dr. Webster (done from ED) 08/06 Advance diet to clear liquids, Per surgery will need a repeat colonoscopy in 6 to 8 weeks with GI follow-up outpatient lack of transportation, no reported PCP, lives with ex [id number] CAD: ASA EC 81mg po BID as home med schedule HTN: Carvedilol 6.25mg po BID HLD: Simvastatin 40mg po q hs Tobacco use Marijuana use Educate on cessation Glaucoma: Have someone bring drops and use as directed DVT/GI prophylaxis SCD, Lovenox Lovenox/protonix disposition: Home - Code Status/Comfort Care Code Status: Full Code Critical Care: Yes Time Spent Managing PTS Care (In Minutes): 65 <Heather Romero - Last Filed: 08/09/23 18:07> Date of Service: 08/09/23 Patient chart was reviewed and patient was seen and examined. ROLO history and physical reviewed as well. Agree with the assessment and plan; physical exam after patient was intubated that she had patient with ET tube in place with bright red blood in the ET tube. Lungs on the right side had diminished breath sounds. Cardiovascular exam with diminished heart sounds but otherwise regular rate and rhythm tachycardic. Abdomen is soft and nondistended. Neuroexam patient is unresponsive but coughing and breathing a little over the ventilator. Does not respond to painful stimuli at this time. Patient presented with perforated diverticulitis. Patient was brought a tray for lunch. When the nurse went to check on him 45 minutes later he was unresponsive. Patient will be monitored in the intensive care unit. Continue with IV antibiotics for perforated diverticulum and will also cover aspiration pneumonia. Continue with surgical consultation and will get a CT scan to further evaluate patient's bright red blood in the ET tube. Unlikely to be heart failure which is pink and frothy. Echocardiogram pending as well. Also need to get in touch with family as patient does not have any family available. Most of the MDM was done by myself and plan of care was discussed with ROLO as well as the patient. Anticipated length of stay is 5-7 days. <Lorene Yeboah - Last Filed: 08/10/23 08:13>
[2023-08-09 18:41] LABS: Arterial Blood Carboxyhemoglob 0.6 % (0-1.5); Blood Gas Oxyhemoglobin 87.8 % (94-97); Blood O2 Saturation 89.8 % (92-98.5)
[2023-08-09] MEDS ORDERED: propofoL 1,000 MG/100 ML VIAL IV SCH (19:00)
[2023-08-09] MEDS ORDERED: FUROSEMIDE 20 MG/ 2ML VIAL ONE (19:03)
[2023-08-09] MEDS: FUROSEMIDE 20 MG/ 2ML VIAL IV ONE (19:04)
[2023-08-09] MEDS: NOREPINEPHRINE 16 MG in D5W 250 ML IV SCH (20:13)
--- NOTE | 2023-08-09 21:39 | RAD REPORT ---
EXAM DESCRIPTION: CT - Chest Angio - 08/09/2023 8:48 pm CLINICAL HISTORY: Respiratory failure COMPARISON: Chest For Pe Angio dated 06/21/2023; Chest Single View dated 08/09/2023 TECHNIQUE: Thin axial CT images of the chest were obtained following administration of iodinated IV contrast. Multiplanar reconstructions, and maximum intensity projection reconstructions were generate d and reviewed. Exam utilizes a protocol for optimal evaluation of pulmonary arterial tree. All CT scans are performed using dose optimization technique as appropriate and may include automated exposure control or mA/KV adjustment according to patient size. FINDINGS: Motion artifact somewhat limits evaluation. Pulmonary arteries are normal. No emboli or other suspicious finding. No acute or significant aorta f indings. Endotracheal tube in place, terminating at the midthoracic trachea. Dependent patchy right upper and lower lobe airspace opacities with air bronchogram. Minimal similar along the dependent left upper an d lower lobes. No pleural thickening or pleural effusion. No pneumothorax. No abnormal mediastinal or hilar masses or lymphadenopathy seen. No chest wall mass or abnormal axill iary lymphadenopathy. IMPRESSION: No evidence of acute central pulmonary emboli. Dependent airspace opacities in the right more than left upper and lower lobes, concerning for asymme tric pulmonary edema or aspiration.
[2023-08-10] MEDS ORDERED: METHYLPREDNISOLONE 125 MG INJ ONE (04:21)
[2023-08-10] MEDS ORDERED: PIPERACIL/TAZO 3.375 GM VIAL IV ONE (04:21)
[2023-08-10] MEDS ORDERED: NA CHLORIDE 0.9% 100 ML ONE (04:22)
[2023-08-10] MEDS ORDERED: NA CHLORIDE 0.9% 1,000 ML ONE ×2 (04:47→13:57)
[2023-08-10 05:43] LABS: Absolute Lymphocytes (CBC) 0.3 K/uL (0.7-4.9); Absolute Monocytes 0.3 K/uL (0.1-1.3); Absolute Neutrophil 9.6 K/uL (1.8-8.0); Basophils % 0.1 % (0-1.3); Hematocrit 39.7 % (39.6-49.0); Hemoglobin 13.2 g/dL (13.6-17.9); Lymphocytes % 2.8 % (15.3-44.8); MCH 30.5 pg (27.0-35.0); MCHC 33.2 g/dL (32.0-36.0); MCV 91.8 fL (80-100); Neutrophils % 94.1 % (41.7-73.7); Platelets 121 thou/uL (152-406); RBC Red Blood Cell Count 4.33 M/uL (4.33-5.43); Red Cell Distribution Width 13.8 % (12.1-15.2)
[2023-08-10 06:01] LABS: Albumin 2.3 g/dL (3.4-5.0); Albumin/Globulin Ratio 0.7 (1.1-1.8); Anion Gap 12.9 mEq/L (5.0-15.0); Bilirubin Total 0.4 mg/dL (0.2-1.0); Globulin 3.5 g/dL (2.3-3.5); Magnesium 1.8 mg/dL (1.6-2.4); Phosphorus 3.6 mg/dL (2.5-4.9); Potassium 3.9 mEq/L (3.5-5.1); Protein, Total 5.8 g/dL (6.4-8.2)
[2023-08-10 06:03] LABS: Troponin High Sensitivity 3255.5 pg/mL (<58.9)
[2023-08-10] MEDS ORDERED: HEPARIN/D5W 25,000 UNIT/500 ML BAG IV ONE (06:38)
[2023-08-10] MEDS: HEPARIN/D5W 25,000 UNIT/500 ML BAG IV PRN (06:42)
[2023-08-10 06:43] LABS: Blood Morphology Comment NOTED (NOT SEEN); Burr Cells 1+; Platelet Estimate ADEQ; White Blood Cell Scan OK (OK)
--- NOTE | 2023-08-10 07:19 | P.PN ---
Subjective Date of Service: 08/10/23 Chief Complaint: progressive diverticulitis with failed outpt therapy Transferred to ICU, on ventilator plan to wean ventilation, on Precedex for On dopamine for hypotension, Levophed weaned History of uncontrolled/untreated COPD, Solu-Medrol, nebs ordered for acute hypoxic respiratory failure pulmonary following NSTEMI, on heparin drip added overnight Physical Examination - Physical Exam General: On ventilator, umresponsive HEENT: Normocephalic, Other (right eye clouded, uses drops for glaucoma? Neck: JVD not distended Respiratory: Normal air movement Cardiovascular: Normal pulses, Regular rate/rhythm Capillary refill: <2 Seconds Gastrointestinal: Non-distended, positive bowel sounds, left lower quadrant/suprapubic tenderness Musculoskeletal: No clubbing Integumentary: No erythema, No cyanosis Neurological: Normal speech, Abnormal tone <Heather Romero - Last Filed: 08/10/23 14:27> Date of Service: 08/10/23 <Lorene Yeboah - Last Filed: 08/13/23 15:58> Review of Systems Per HPI <Heather Romero - Last Filed: 08/10/23 14:27> Physical Examination - Vital Signs Temperature: 99 F Blood Pressure: 128/80 Pulse: 73 Respirations: 16 Pulse Ox (%): 96 <Heather Romero - Last Filed: 08/10/23 14:27> Assessment And Plan - Plan Assessment and Plan Acute hypoxic respiratory failure secondary to respiratory arrest Suspected aspiration pneumonia COPD poorly controlled Status post CODE BLUE called patient intubated, placed on mechanical ventilation, Pulmonary consulted, nebs, Solu-Medrol added NG tube placed to low intermittent suction, diet changed to n.p.o. CT of the chest PE protocol ordered no PE SEEN ABG ordered Septic shock secondary to respiratory arrest Lactic acidosis likely secondary to respiratory arrest status post CPR NSTEMI, elevated troponin Procalcitonin elevated 0.10, lactic 3.5, repeat pending Levophed for hypotension titrate MAP of 65 Dopamine ordered, Haldol, fentanyl for sedation Trend troponin 69.1,-> 84->3225 Recurrent diverticulitis Aggressive IV hydration Blood cultures, Cdiff neg Zosyn 3.375gm IVPB q 8h, (just finished augmentin and flagyl outpatient) Outpatient colonoscopy in 8-12 weeks Pain control Monitor for perforation Consult Dr. Webster (done from ED) 08/06 Advance diet to clear liquids, Per surgery will need a repeat colonoscopy in 6 to 8 weeks with GI follow-up outpatient Acute kidney injury BUN 19 creatinine 1.5 Normal saline infusion lack of transportation, no reported PCP, lives with ex [id number] CAD: ASA EC 81mg po BID as home med schedule HTN: Carvedilol 6.25mg po BID HLD: Simvastatin 40mg po q hs Tobacco use Marijuana use Educate on cessation Glaucoma: Have someone bring drops and use as directed DVT/GI prophylaxis SCD, Lovenox Lovenox/protonix disposition: Home Discharge Plan: Halfway - Code Status/Comfort Care Code Status: Full Code Critical Care: Yes Time Spent Managing PTS Care (In Minutes): 55 <Heather Romero - Last Filed: 08/10/23 14:27> Date of Service: 08/10/23 Patient chart was reviewed and patient was seen and examined. ROLO history and physical reviewed as well. Agree with the assessment and plan. Still unresponsive. Patient currently on sedation. When I hold off on the Precedex and see how patient does neurologically. Will get a CT of the brain as well. Most of the MDM was done by myself and plan of care was discussed with ROLO as well as the patient. Concern for significant hypoxic brain injury. Patient is not really waking up appropriately. Patient prognosis is very poor. <Lorene Yeboah - Last Filed: 08/13/23 15:58>
[2023-08-10] MEDS: NA CHLORIDE 0.9% 100 ML ONE (08:10)
[2023-08-10] MEDS ORDERED: ASPIRIN 81 MG CHEWABLE TABLET ONE (08:13)
--- NOTE | 2023-08-10 08:20 | P.PN ---
Date of Service: 08/09/23 DIEGO HANSON note: DIEGO HANSON was called at 1307. Patient was asystole. CPR initiated. Chest compressions initiated. Patient given 1 round of epinephrine as well as intubated. Last known well time was about 45 minutes ago when patient was brought his lunch to eat. Patient did not call out to the nurse for any signs of distress. Patient was intubated by emergency room physician and right femoral line central catheter placement was performed as well by emergency room physician, Dr. Braga. Patient also went into ventricular fibrillation after the first dose of epinephrine and patient was cardioverted at 200 J. After cardioversion patient went into sinus rhythm. Patient was given an amp of bicarb and additional dose of epinephrine. After the second dose of epinephrine patient had a pulse. Patient blood pressure was 170/100. Patient was started on IV fluids and labs were ordered. Patient was sinus tachycardic. Patient's blood pressure by the time we moved him downstairs had gone down to 90/60. We went ahead and initiated Levophed. However, dopamine was not in the cart so we started dopamine at 20 mics. Pharmacy was able to bring Levophed to us prior to patient moving down to the ICU. Patient was transferred to the intensive care unit for close monitoring.
[2023-08-10] MEDS: MAGNESIUM SULFATE 1 gm IVPB 1 GM/100 ML BAG IV ONE (08:22)
[2023-08-10] MEDS: ASPIRIN 81 MG CHEWABLE TABLET PO SCH (08:23)
--- NOTE | 2023-08-10 08:30 | P.CNS ---
Date of Consult: 08/09/23 Reason for Consult: Pittore failure Chief Complaint: Respiratory failure s/p CODE BLUE History of Present Illness: Is 73 years of age multiple medical problems of diverticulitis and outpatient therapy with antibiotics patient had gotten worse having nausea vomiting from the emergency room he coded on the floor transferred to the ICU there was a mention of aspiration time of my evaluation patient was agitated tachypneic hypotensive previous hemoptysis Allergies ciprofloxacin [From Cipro] Allergy (Verified 03/13/23 22:49) Hives/Rash codeine Allergy (Verified 03/13/23 22:49) Itching Home Medications: Aspirin Chewable [Aspirin Chewable*] 1 tab PO BID 03/14/23 Simvastatin [Zocor] 2 tab PO BEDTIME 03/14/23 carvediloL [Carvedilol] 1 tab PO BID 03/14/23 - Past Medical/Surgical History Diabetic: No -: HTN -: CAD -: HLD -: emphysema -: COPD -: hepatitis C -: syphillis -: Cholecystectomy -: CABG 2018 -: cataract sx Psychosocial/ Personal History: Lives in [facility] with Friend (x-brother in law), 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 Has not driven in 32yr. 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 Moved here from [place]. Drinks Erendira beer, smokes 1/2ppd cigarettes, smokes marijuana and combines with gummies sometimes - Social History Smoking Status: Former smoker Alcohol use: Yes CD- Drugs: Yes Caffeine use: No Place of Residence: Home Review of Systems is unable to be obtained Physical Examination Temp Pulse Resp BP Pulse Ox 99 F 73 16 128/80 96 08/10/23 07:19 08/10/23 07:19 08/10/23 07:19 08/10/23 07:19 08/10/23 07:19 General: Severe distress, Unresponsive Respiratory: Clear to auscultation bilaterally, Diminished Cardiovascular: No edema, Normal S1 S2 Gastrointestinal: Hypoactive Integumentary: No rashes, No breakdown - Problems (1) Respiratory failure Current Visit: Yes Status: Acute Plan: Patient is 73 years of age multiple medical problems including COPD failed outpatient therapy for diverticulitis transferred to the ICU was intubated currently is hypotensive agitated plan to sedate patient pain relief is to be weaned off vasopressors chest x-ray abnormal I was abnormal in some days and is on the right side probably from aspiration continue with present treatment labs reviewed troponin elevated and is anticoagulated had a cardiac event
--- NOTE | 2023-08-10 08:35 | P.PN ---
Subjective Date of Service: 08/10/23 Chief Complaint: Respiratory failure s/p CODE BLUE Patient's condition is stable he continues to remain unresponsive is off vasopressors agitated on a Precedex drip Review of Systems is unable to be obtained Physical Examination - Vital Signs Temperature: 99 F Blood Pressure: 128/80 Pulse: 73 Respirations: 16 Pulse Ox (%): 96 - Physical Exam General: Unresponsive Respiratory: Clear to auscultation bilaterally, Diminished Cardiovascular: No edema, Normal S1 S2 Assessment And Plan - Current Problems (Diagnosis) (1) Respiratory failure Current Visit: Yes Status: Acute Plan: Patient admitted with respiratory failure his condition is currently stable chest x-ray ordered no further hemoptysis labs reviewed globin is stable renal function is slightly worse troponin has increased significantly DC steroids he is off all vasopressors no evidence of any GI bleeding reduce pantoprazole to once a day most likely this is from aspiration pneumonia scan of the chest reviewed no pulmonary emboli try weaning he is currently unresponsive will tend to decrease the dose of his Precedex drip Qualifiers: Chronicity: acute
--- NOTE | 2023-08-10 09:10 | RAD REPORT ---
EXAM DESCRIPTION: RADChest Single View08/10/2023 9:02 am CLINICAL HISTORY: Respiratory failure COMPARISON: Chest Single View dated 08/09/2023; Chest Single View dated 07/14/2023; Chest Single View dated 06/21/2023; Chest Angio dated 08/09/2023 TECHNIQUE: Portable AP view of the chest. FINDINGS: Partial improvement of airspace opacities in the right upper lung, with residual opacities in the basal segments of the right upper lobe demarcated by the minor fissure, as well as in the med ial right lower lung. Endotracheal tube is unchanged in position. No pneumothorax or effusion. The c ardiomediastinal contours are unchanged. IMPRESSION: Partial improvement of airspace opacities in the right, suggesting improving pulmonary e melania or airspace disease.
[2023-08-10] MEDS ORDERED: FENTANYL CITR 100 MCG/2 ML ONE ×2 (09:15→13:10)
--- NOTE | 2023-08-10 09:23 | P.PN ---
Infectious Disease Progress Note Chief Complaint: progressive diverticulitis with failed outpt therapy Subjective: Yesterday afternoon, patient was found to be unresponsive without a pulse, code blue was initiated. Subsequently intubated and transferred to the ICU. ROS unable to obtain as pt is intubated and sedated. Physical Examination Temp Pulse Resp BP Pulse Ox 99 F 73 32 H 128/80 100 08/10/23 08:36 08/10/23 08:36 08/10/23 09:16 08/10/23 08:36 08/10/23 09:16 General: Intubated, sedated. HEENT: Atraumatic, Normocephalic. ETT Respiratory: Mechanical ventilation Cardiovascular: Regular rate/rhythm. No edema. Gastrointestinal: Normoactive bowel sounds. Non-distended. Integumentary: No rashes Laboratory Data - Reviewed Microbiology data - Reviewed Imagings Data: - Reviewed Assessment and Plan Problem List Perforated Diverticulum with contained Abscess Diverticulitis Coronary Artery Disease Hypertension Hyperlipidemia COPD Glaucoma Hx Syphilis Hx Hepatitis C Nicotine dependence Marijuana/Cocaine use Perforated Diverticulum with Contained Abscess - failed outpatient anitbiotic therapy on Augmentin and Flagyl - Currently on Zosyn IV (started 08/07) - CT abdomen pelvis w contrast 08/06: "Progressive or more conspicuous lobulated marginally enhancing fluid collection with punctate foci of gas anteriorly, along the adventitia of the sigmoid colon wall wall interposed against the left pelvic sidewall, suggesting a contained leak, in the setting of incompletely resolved diverticulitis. No free air or free fluid. Nonobstructing right renal lower pole 8 mm calculus." - pt reports having colonscopy in November 2022 in [place]. Unknown results. Patient also reports possible c.diff diagnosis at the time. - C.diff toxin negative, antigen positive. - No c.diff treatment indicated at this time. History of Syphilis - patient reports being treated 3 times for syphilis - most recently reports being treated for syphilis while hospitalized at a facility in [place]. He underwent colonoscopy ~November 2022, reports also being treated for syphilis at the time - Obtain RPR titer Recommendations - abdominal abscess: continue IV antibiotic therapy for 10-14 days, given failure on PO antibiotics as outpatient. Currently on Zosyn, continue for now. - Hx syphilis: Obtain RPR titer. pt reporting being treated for syphilis multiple times, most recently in November 2022. - recommend obtaining HIV screen. Discussed with patient on 08/08 morning and is agreeable to HIV testing - Monitor CBC, BMP, fever trends - Oral care while intubated. - Pressure offloading measures, turn pt q2h. Case discussed with Zaina Mccray
--- NOTE | 2023-08-10 10:23 | ECHO ---
HEIGHT: 6 ft 0 in WEIGHT: 150 lb 0 oz DATE OF STUDY: 08/09/[address]: Lorene Yeboah MD 2-DIMENSIONAL: YES M.MODE: YES DOPPLER: YES COLOR FLOW: YES TDS: YES PORTABLE: YES DEFINITY: BUBBLE STUDY: DIAGNOSIS: CODE BLUE CARDIAC HISTORY: CATHERIZATION: YES SURGERY: YES PROSTHETIC VALVE: PACEMAKER: MEASUREMENTS (cm) DIASTOLIC (NORMALS) SYSTOLIC (NORMALS) IVSd 1.1 (0.6-1.2) LA Diam 2.5 (1.9-4.0) LVEF 29% LVIDd 4.9 (3.5-5.7) LVIDs 4.2 (2.0-3.5) %FS 13% LVPWd 1.3 (0.6-1.2) Ao Diam 3.4 (2.0-3.7) 2 DIMENSIONAL ASSESSMENT: RIGHT ATRIUM: LEFT ATRIUM: RIGHT VENTRICLE: LEFT VENTRICLE: TRICUSPID VALVE: MITRAL VALVE: PULMONIC VALVE: AORTIC VALVE: PERICARDIAL EFFUSION: AORTIC ROOT: LEFT VENTRICULAR WALL MOTION: DOPPLER/COLOR FLOW: COMMENTS: 1. LIMITED STUDY DUE TO POOR WINDOWS 2. LEFT VENTRICULAR EJECTION FRACTION APPEARS SEVERELY DEPRESSED TECHNOLOGIST: JIMMY MCGREGOR
--- NOTE | 2023-08-10 10:54 | RAD REPORT ---
EXAM DESCRIPTION: RAD - Abdomen 1 View (KUB) - 08/10/2023 9:36 am CLINICAL HISTORY: OG tube insertion COMPARISON: No comparisons TECHNIQUE: Single AP view of the abdomen. FINDINGS: Enteric tube loops at the level of the distal esophagus with its tip terminating in the mi d esophagus on the first image. On a subsequent image, the tube extends into the proximal stomach, ho wever is looped as well with its tip terminating near the GE junction. Nonobstructive bowel gas pattern. No air-fluid levels, free air, or pneumatosis. No suspicious calcif ications. No significant bony abnormality. IMPRESSION: Final position of the enteric tube demonstrates looping in the proximal stomach with its tip terminating near the GE junction. Repositioning the tube is recommended.
[2023-08-10] MEDS ORDERED: LORazepam 2 MG/ML VIAL ONE (11:59)
[2023-08-10] MEDS ORDERED: HEPARIN 5000 UNIT/ML 1 ML VIAL ONE ×2 (12:01→22:06)
[2023-08-10] MEDS: HEPARIN 5000 UNIT/ML 1 ML VIAL IV ONE ×2 (12:02→22:09)
[2023-08-10] MEDS ORDERED: MIDAZOLAM HCL 2 MG/2 ML INJ ONE (12:07)
[2023-08-10] MEDS: DEXMEDETOMIDINE HCL 1,000 MCG in NA CHLORIDE 0.9% 490 ML IV SCH (12:09)
--- NOTE | 2023-08-10 12:17 | PN ---
Date of Progress Note: 08/10/2023 Subjective: Events of yesterday reviewed. The patient apparently had aspirated and went into code b lue situation in which he was resuscitated and currently intubated. He is sedated; however, he did h ave some agitation yesterday after intubation. At this time, however, he is completely unable to mov e. The patient is being weaned off the Precedex right now. We will see what his mental status is as he weaned off more. He is currently completely supported by the ventilator. Physical Examination: Vital Signs: Stable. His temperature is 99. Abdomen: Soft, nondistended, nontender. Laboratory Data: Reviewed. White count is 7.2 with a left shift. INR is 1.45. The patient is on h eparin drip. His troponin was elevated. Dr. Lama believed it is demand ischemia. Assessment: The patient with recurrent sigmoid diverticulitis with recent code secondary to probable aspiration pneumonia. Recommendations: Continue to wean the patient off Precedex and see what his mental status is. If no t, we may need to obtain a guardianship as he does not have any known family members. Fabiana has b ginette contacted. Continue IV antibiotics for the diverticulitis in the mean time. /MODL Voice ID: [id number] Report ID: [id number]
[2023-08-10] MEDS ORDERED: HALOPERIDOL LACT 5 MG/ML INJ ONE (13:23)
[2023-08-10] MEDS: HALOPERIDOL LACT 5 MG/ML INJ IV PRN (13:24)
[2023-08-10] MEDS: HYDROMORPHONE HCL 1 MG/ML INJ IV ONE (13:39)
[2023-08-10] MEDS ORDERED: HYDROMORPHONE HCL 0.5 MG/0.5 ML INJ ONE (13:56)
[2023-08-10] MEDS: FUROSEMIDE 20 MG/ 2ML VIAL IV ONE (13:59)
[2023-08-10] MEDS ORDERED: DOPAMINE 400 MG/250 ML D5W PREMIX IV ONE (14:55)
[2023-08-10] MEDS ORDERED: SODIUM CHL 0.9% 1000 ML BAG IV ONE (14:55)
[2023-08-10] MEDS ORDERED: EPINEPHrine 1 MG/10 ML SYR IV ONE (14:55)
--- NOTE | 2023-08-10 15:57 | RAD REPORT ---
EXAM DESCRIPTION: CT - Head Brain Wo Cont - 08/10/2023 3:35 pm CLINICAL HISTORY: AMS Headache, drowsiness, alteration of awareness. COMPARISON: Head Brain Wo Cont dated 03/29/2023; Head Brain Wo Cont dated 03/21/2023 TECHNIQUE: All CT scans are performed using dose optimization technique as appropriate and may inclu de automated exposure control or mA/KV adjustment according to patient size. FINDINGS: No intracranial hemorrhage, hydrocephalus or extra-axial fluid collection.No areas of brai n edema or evidence of midline shift. The paranasal sinuses and mastoids are clear. The calvarium is intact. IMPRESSION: No acute intracranial abnormality.
[2023-08-10] MEDS ORDERED: ATORVASTATIN 20 MG TAB ONE (20:38)
[2023-08-10] MEDS ORDERED: PANTOPRAZOLE 40 MG INJ ONE (20:38)
--- NOTE | 2023-08-10 20:41 | CON ---
Date of Consultation: 08/10/2023 Reason For Consultation: Elevated troponin, post code. History Of Present Illness: 73-year-old, history of hypertension, coronary artery disease, dyslipide lili, CABG in 2018, and he was admitted obviously with acute diverticulitis exacerbation, started on a ntibiotics. He apparently had a code blue, was hypoxic, and had respiratory arrest and then coded fo r 10 minutes and then achieved an effective rhythm after that. Patient was intubated and they did a troponin on him and it peaked at 6000, and it is trending down. Patient is on the ventilator. Canno t get any history from him. Past Medical History: As outlined above in the HPI. Medications: Refer to reconciliation sheet for detailed list. Allergies: CIPRO AND CODEINE. Past Surgical History: CABG in 2018. Social History: He is a smoker. Does not drink or use any drugs. Family History: No premature coronary artery disease or cancer. Review of Systems: All systems are not obtainable for review at this moment because the patient is sedated on the vent. Physical Examination: Vital Signs: Reviewed. Head and Neck: Pupils are reactive to light, but sluggish. Neck is supple. Thyroid is not enlarged . Lungs: No rhonchi bilaterally. No accessory muscle use or muscle retraction. He is on the ventilat or. Heart: Regular. No extra sounds. Abdomen: Soft. Bowel sounds positive. Extremities: No clubbing or cyanosis. Intact pulses. Skin: No rash. No nodule. Neuro: He is sedated on the vent. Lymph Nodes: No cervical or axillary lymphadenopathy. Investigations: Troponin peaked at 6384 and down to 3255. BUN is 19, creatinine 1.54, hemoglobin is 13.2. Assessment And Recommendations: 1.Elevated troponin peaked at 6000 range and it is trending down. Echo was done, however, it was ve ry poor quality. Could not evaluate the ejection fraction very well. This could be an elevation due to demand ischemia, status post cardiac arrest, which was due to the respiratory arrest per the witn esses. At this point, I recommend to give baby aspirin and continue heparin as well as Lipitor and o nce his condition is more stable and once he regain his consciousness and becomes medically stable es pecially from the infection standpoint, then we will plan for ischemia workup, which will be a jordan ry angiogram. 2.Acute diverticulitis with sepsis status resulting in cardiac arrest, on wide-spectrum antibiotics and full support. 3.Dyslipidemia. Continue statin. I will monitor the patient with you and we will plan for ischemia evaluation once he is clinically st able. SR/MODL Voice ID: [id number] Report ID: [id number]
[2023-08-11] MEDS ORDERED: PIPERACIL/TAZO 3.375 GM VIAL IV ONE ×3 (01:11→16:02)
[2023-08-11] MEDS ORDERED: NA CHLORIDE 0.9% 1,000 ML ONE ×2 (01:11→10:18)
[2023-08-11] MEDS ORDERED: NA CHLORIDE 0.9% 100 ML ONE ×3 (01:12→16:02)
[2023-08-11] MEDS ORDERED: HEPARIN 5000 UNIT/ML 1 ML VIAL ONE (02:57)
[2023-08-11] MEDS: HEPARIN 5000 UNIT/ML 1 ML VIAL IV ONE ×2 (03:08→10:29)
[2023-08-11 05:55] LABS: Absolute Lymphocytes (CBC) 0.3 K/uL (0.7-4.9); Absolute Monocytes 0.9 K/uL (0.1-1.3); Absolute Neutrophil 12.8 K/uL (1.8-8.0); Basophils % 0.1 % (0-1.3); Hematocrit 37.3 % (39.6-49.0); Hemoglobin 12.4 g/dL (13.6-17.9); Lymphocytes % 2.4 % (15.3-44.8); MCH 30.1 pg (27.0-35.0); MCHC 33.3 g/dL (32.0-36.0); MCV 90.5 fL (80-100); Monocytes % 6.7 % (3.3-12.3); Neutrophils % 90.8 % (41.7-73.7); Platelets 127 thou/uL (152-406); RBC Red Blood Cell Count 4.12 M/uL (4.33-5.43)
[2023-08-11 06:09] LABS: Albumin 2.1 g/dL (3.4-5.0); Anion Gap 8.1 mEq/L (5.0-15.0); Magnesium 2.1 mg/dL (1.6-2.4); Potassium 4.1 mEq/L (3.5-5.1)
[2023-08-11] MEDS ORDERED: MIDAZOLAM HCL 2 MG/2 ML INJ ONE ×2 (06:43→16:00)
[2023-08-11] MEDS ORDERED: FENTANYL CITR 100 MCG/2 ML ONE ×2 (06:49→13:52)
[2023-08-11] MEDS: FENTANYL CITR 100 MCG/2 ML IV PRN (06:50)
--- NOTE | 2023-08-11 06:50 | P.PN ---
Subjective Date of Service: 08/12/23 Chief Complaint: progressive diverticulitis with failed outpt therapy Transferred to ICU, on ventilator plan to wean ventilation, on Precedex for sedation On dopamine for hypotension, Levophed weaned History of uncontrolled/untreated COPD, Solu-Medrol, nebs ordered for acute hypoxic respiratory failure pulmonary following NSTEMI, on heparin drip for NSTEMI, cardiology consulted Physical Examination - Physical Exam General: On ventilator, unresponsive HEENT: Normocephalic, Other (right eye clouded, uses drops for glaucoma? Neck: JVD not distended Respiratory: Normal air movement Cardiovascular: Normal pulses, Regular rate/rhythm Capillary refill: <2 Seconds Gastrointestinal: Non-distended, positive bowel sounds, left lower quadrant/suprapubic tenderness Musculoskeletal: No clubbing Integumentary: No erythema, No cyanosis Neurological: Abnormal tone <Heather Romero - Last Filed: 08/12/23 07:06> Date of Service: 08/12/23 <Lorene Yeboah - Last Filed: 08/13/23 15:57> Review of Systems Per HPI <Heather Romero - Last Filed: 08/12/23 07:06> Physical Examination - Vital Signs Temperature: 97.3 F Blood Pressure: 137/80 Pulse: 75 Respirations: 16 Pulse Ox (%): 97 <Heather Romero - Last Filed: 08/12/23 07:06> Assessment And Plan - Plan Assessment and Plan Acute hypoxic respiratory failure secondary to respiratory arrest Suspected aspiration pneumonia COPD poorly controlled Status post CODE BLUE called patient intubated, placed on mechanical ventilation, Pulmonary consulted, nebs, Solu-Medrol added NG tube placed to low intermittent suction, diet changed to n.p.o. CT of the chest PE protocol ordered no PE SEEN ABG ordered daily chest x ray Septic shock secondary to respiratory arrest Lactic acidosis likely secondary to respiratory arrest status post CPR NSTEMI, elevated troponin Procalcitonin elevated 0.10, lactic 3.5, repeat pending Levophed for hypotension titrate MAP of 65 Dopamine ordered, Haldol, fentanyl for sedation Trend troponin 69.1,-> 6384->3225 Recurrent diverticulitis Zosyn 3.375gm IVPB q 8h, (just finished augmentin and flagyl outpatient) Outpatient colonoscopy in 8-12 weeks Pain control Monitor for perforation Consult Dr. Webster (done from ED) Per surgery will need a repeat colonoscopy in 6 to 8 weeks with GI follow-up outpatient ID consulted Perforated Diverticulum with Contained Abscess - failed outpatient anitbiotic therapy on Augmentin and Flagyl - Currently on Zosyn IV (started 08/07) - CT abdomen pelvis w contrast 08/06: "Progressive or more conspicuous lobulated marginally enhancing fluid collection with punctate foci of gas anteriorly, along the adventitia of the sigmoid colon wall wall interposed against the left pelvic sidewall, suggesting a contained leak, in the setting of incompletely resolved diverticulitis. No free air or free fluid. Nonobstructing right renal lower pole 8 mm calculus." - pt reports having colonscopy in November 2022 in [place]. Unknown results. Patient also reports possible c.diff diagnosis at the time. - C.diff toxin negative, antigen positive. - No c.diff treatment indicated at this time. History of Syphilis - patient reports being treated 3 times for syphilis - most recently reports being treated for syphilis while hospitalized at a facility in [place]. He underwent colonoscopy ~November 2022, reports also being treated for syphilis at the time - Obtain RPR titer Recommendations - abdominal abscess: continue IV antibiotic therapy for 10-14 days, given failure on PO antibiotics as outpatient. Currently on Zosyn, continue for now. - Hx syphilis: Obtain RPR titer. pt reporting being treated for syphilis multiple times, most recently in November 2022. - recommend obtaining HIV screen. Discussed with patient on 08/08 morning and is agreeable to HIV testing - Monitor CBC, BMP, fever trends - Oral care while intubated. - Pressure offloading measures, turn pt q2h. Acute kidney injury BUN 19 creatinine 1.5 Normal saline infusion Will add nephrology consult for worsening kidney failure Protein calorie malnutrition due to no po intake Albumin 2.1, 2.3 NGT start Tube feedings, network administrator consulted CAD: ASA EC 81mg po BID as home med schedule HTN: Carvedilol 6.25mg po BID HLD: Simvastatin 40mg po q hs Tobacco use Marijuana use Educate on cessation Glaucoma: Have someone bring drops and use as directed DVT/GI prophylaxis SCD, Lovenox Lovenox/protonix disposition: Home, lack of transportation, no reported PCP, lives with ex [id number] Discharge Plan: Detention Critical Care: Yes Time Spent Managing PTS Care (In Minutes): 55 <Heather Romero - Last Filed: 08/12/23 07:06> Date of Service: 08/12/23 Patient chart was reviewed and patient was seen and examined. ROLO history and physical reviewed as well. Agree with the assessment and plan. Still unresponsive. Weaning off of sedation. Try to get in contact with family and will need to discuss with ethics committee regarding prognosis. Most of the MDM was done by myself and plan of care was discussed with ROLO as well as the patient. Plan to discuss with other family regarding withdrawal of care as patient with significant hypoxic brain injury. <Lorene Yeboah - Last Filed: 08/13/23 15:57>
[2023-08-11] MEDS ORDERED: HYDROMORPHONE HCL 0.5 MG/0.5 ML INJ ONE ×2 (06:58→18:00)
[2023-08-11] MEDS: HYDROMORPHONE HCL 0.5 MG/0.5 ML INJ IV PRN ×2 (06:58→18:08)
[2023-08-11] MEDS ORDERED: PANTOPRAZOLE 40 MG INJ ONE (07:46)
[2023-08-11] MEDS ORDERED: ASPIRIN 81 MG CHEWABLE TABLET ONE (07:46)
--- NOTE | 2023-08-11 07:50 | RAD REPORT ---
EXAM DESCRIPTION: Ruba Single View08/11/2023 5:33 am CLINICAL HISTORY: Respiratory failure COMPARISON: August 10, 2023 FINDINGS: No significant change in right upper lobe opacities. Mild improvement in the right basilar lung opacities There may be minimal left lung opacities unchanged Heart is normal size. Postsurgical changes involve the chest. Endotracheal and nasogastric tubes in good position IMPRESSION: No significant change in right upper lobe opacities. Mild improvement in right basilar o pacities
--- NOTE | 2023-08-11 08:53 | P.PN ---
Infectious Disease Progress Note Subjective: Remains intubated and sedated. ROS unable to obtain. No major events overnight. Physical Examination Temp Pulse Resp BP Pulse Ox 100.3 F 71 12 126/76 96 08/11/23 08:00 08/11/23 08:18 08/11/23 08:00 08/11/23 08:00 08/11/23 08:18 General: Intubated, sedated. HEENT: Atraumatic, Normocephalic. ETT Respiratory: intubated, on ventilator Cardiovascular: Regular rate/rhythm. Trace BLE edema. Gastrointestinal: Normoactive bowel sounds. Non-distended. Integumentary: No rashes : Kenny catheter Laboratory Data - Reviewed Microbiology data - Reviewed Imagings Data: - Reviewed Assessment and Plan Problem List Perforated Diverticulum with contained Abscess Acute hypoxic respiratory failure secondary to respiratory arrest Suspected aspiration pneumonia Diverticulitis Coronary Artery Disease Hypertension Hyperlipidemia COPD Glaucoma Hx Syphilis Hx Hepatitis C Nicotine dependence Marijuana/Cocaine use Perforated Diverticulum with Contained Abscess - failed outpatient anitbiotic therapy on Augmentin and Flagyl - Currently on Zosyn IV (started 08/07) - CT abdomen pelvis w contrast 08/06: "Progressive or more conspicuous lobulated marginally enhancing fluid collection with punctate foci of gas anteriorly, along the adventitia of the sigmoid colon wall wall interposed against the left pelvic sidewall, suggesting a contained leak, in the setting of incompletely resolved diverticulitis. No free air or free fluid. Nonobstructing right renal lower pole 8 mm calculus." - pt reports having colonscopy in November 2022 in [place]. Unknown results. Patient also reports possible c.diff diagnosis at the time. - C.diff toxin negative, antigen positive. - No c.diff treatment indicated at this time. Acute hypoxic respiratory failure secondary to respiratory arrest Suspected aspiration pneumonia - CTA chest 08/08: "No evidence of acute central pulmonary emboli. Dependent airspace opacities in the right more than left upper and lower lobes, concerning for asymmetric pulmonary edema or aspiration." - XR Chest 08/10: "No significant change in right upper lobe opacities. Mild improvement in right basilar opacities" - aspiration pna: on Zosyn - pulmonology following History of Syphilis - patient reports being treated 3 times for syphilis - most recently reports being treated for syphilis while hospitalized at a facility in [place]. He underwent colonoscopy ~November 2022, reports also being treated for syphilis at the time Recommendations - abdominal abscess: continue IV antibiotic therapy for 10-14 days (started 08/07-) - Continue with zosyn. - suspected aspiration PNA: on Zosym - Monitor CBC, BMP, fever trends - Oral care while intubated. - Pressure offloading measures, turn pt q2h. - pulmonology following Case discussed with Zaina Mccray
[2023-08-11] MEDS ORDERED: AMINO AC 8 %/D10W/ELECTROLYTES 2,000 ML IV.SOLN IV SCH (09:00)
--- NOTE | 2023-08-11 09:40 | P.CNS ---
Date of Consult: 08/11/23 Reason for Consult: CARLOS Requesting Physician: Lorene Yeboah Chief Complaint: progressive diverticulitis with failed outpt therapy History of Present Illness: Mr. Gillis is a 73-year-old gentleman with a history of coronary artery disease, hypertension, hyperlipidemia, glaucoma, and diverticulitis. He was seen on July 13 with an exacerbation of his diverticulitis. His record indicates he is allergic to Cipro. He was given Augmentin and Flagyl to take as an outpatient. He states he finished his antibiotics but his pain has gotten worse. He has been having significant nausea and diarrhea, no vomiting. In the emergency department, laboratory evaluation reveals a white count of 12.9, H&H 14.9/45.6, electrolytes are normal. Vital signs stable, afebrile. He is a thin man and appears mildly dehydrated. Imaging interpreted by Dr. Huerta with impression "progressive or more conspicuous lobulated marginally enhancing fluid collection with punctate foci of gas anteriorly, along the adventitia of the sigmoid colon wall interposed against the left pelvic sidewall, suggesting a contained leak, in the setting of incompletely resolved diverticulitis. No free air or free fluid. Nonobstructing right renal lower pole [address] Webster was consulted by the ED provider and will see the patient. Will obtain blood cultures, C. difficile, and begin Zosyn 3.375 g IV piggyback every 8 hours at 2100. 12:13 This 73 yrs old Male presents to ER via Unassigned with complaints of abdominal pain. sb4 12:13 The patient presents with abdominal pain in the left lower quadrant. Onset: The sb4 symptoms/episode began/occurred 2 week(s) ago. The symptoms do not radiate. Associated signs and symptoms: Pertinent positives: nausea, vomiting, and diarrhea. 12:16 Abdominal pain for several weeks now. He was seen here initially and diagnosed with sb4 colitis, discharged with antibiotics, has finished them but the pain persists. He also endorses nausea and intermittent constipation and diarrhea. Allergies ciprofloxacin [From Cipro] Allergy (Verified 03/13/23 22:49) Hives/Rash codeine Allergy (Verified 03/13/23 22:49) Itching Home medications list reviewed: Yes Home Medications: Aspirin Chewable [Aspirin Chewable*] 1 tab PO BID 03/14/23 Simvastatin [Zocor] 2 tab PO BEDTIME 03/14/23 carvediloL [Carvedilol] 1 tab PO BID 03/14/23 - Past Medical/Surgical History Diabetic: No -: HTN -: CAD -: HLD -: Emphysema -: COPD -: HCV -: syphillis -: Cholecystectomy -: CABG 2018 -: cataract sx Psychosocial/ Personal History: Lives in [facility] with Friend (x-brother in law), 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 Has not driven in 32yr. 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 Moved here from [place]. Drinks Erendira beer, smokes 1/2ppd cigarettes, smokes marijuana and combines with gummies sometimes - Social History Smoking Status: Former smoker Alcohol use: Yes CD- Drugs: Yes Caffeine use: No Place of Residence: Home Review of Systems is unable to be obtained Physical Examination Temp Pulse Resp BP Pulse Ox 100.3 F 71 12 126/76 96 08/11/23 08:00 08/11/23 08:00 08/11/23 08:00 08/11/23 08:00 08/11/23 08:00 General: In no apparent distress, Cachectic, Unresponsive HEENT: Atraumatic Neck: Supple Respiratory: Clear to auscultation bilaterally Cardiovascular: No edema Gastrointestinal: Non-distended Musculoskeletal: No clubbing, No contractures Integumentary: No rashes, No cyanosis Neurological: Abnormal tone Urinary: Kenny catheter Blood work reviewed in the chart. Imagings Data: EXAM DESCRIPTION: [facility] Single View08/11/2023 5:33 am CLINICAL HISTORY: Respiratory failure COMPARISON: August 10, 2023 FINDINGS: No significant change in right upper lobe opacities. Mild improvement in the right basilar lung opacities There may be minimal left lung opacities unchanged Heart is normal size. Postsurgical changes involve the chest. Endotracheal and nasogastric tubes in good position IMPRESSION: No significant change in right upper lobe opacities. Mild improvement in right basilar opacities EXAM DESCRIPTION: [facility] Abdomen 1 View (KUB) - 08/10/2023 9:36 am CLINICAL HISTORY: OG tube insertion COMPARISON: No comparisons TECHNIQUE: Single AP view of the abdomen. FINDINGS: Enteric tube loops at the level of the distal esophagus with its tip terminating in the mid esophagus on the first image. On a subsequent image, the tube extends into the proximal stomach, however is looped as well with its tip terminating near the GE junction. Nonobstructive bowel gas pattern. No air-fluid levels, free air, or pneumatosis. No suspicious calcifications. No significant bony abnormality. IMPRESSION: Final position of the enteric tube demonstrates looping in the proximal stomach with its tip terminating near the GE junction. Repositioning the tube is recommended. EXAM DESCRIPTION: CT - Chest Angio - 08/09/2023 8:48 pm CLINICAL HISTORY: Respiratory failure COMPARISON: Chest For Pe Angio dated 06/21/2023; Chest Single View dated 024 TECHNIQUE: Thin axial CT images of the chest were obtained following administration of iodinated IV contrast. Multiplanar reconstructions, and maximum intensity projection reconstructions were generated and reviewed. Exam utilizes a protocol for optimal evaluation of pulmonary arterial tree. All CT scans are performed using dose optimization technique as appropriate and may include automated exposure control or mA/KV adjustment according to patient size. FINDINGS: Motion artifact somewhat limits evaluation. Pulmonary arteries are normal. No emboli or other suspicious finding. No acute o r significant aorta findings. Endotracheal tube in place, terminating at the midthoracic trachea. Dependent patchy right upper and lower lobe airspace opacities with air bronchogram. Minimal similar along the dependent left upper and lower lobes. No pleural thickening or pleural effusion. No pneumothorax. No abnormal mediastinal or hilar masses or lymphadenopathy seen. No chest wall mass or abnormal axilliary lymphadenopathy. IMPRESSION: No evidence of acute central pulmonary emboli. Dependent airspace opacities in the right more than left upper and lower lobes, concerning for asymmetric pulmonary edema or aspiration. EXAM DESCRIPTION: CT - Abdomen Pelvis W Contrast - 08/07/2023 1:32 pm CLINICAL HISTORY: ABD PAIN COMPARISON: Abdomen Pelvis W Contrast dated 07/14/2023; Abdomen Pelvis W Contrast dated 03/31/2023; Abdomen Pelvis W Contrast dated 03/21/2023 TECHNIQUE: Thin cut axial CT imaging of the abdomen and pelvis was performed following intravenous administration of 100 mL Isovue 300. Multiplanar reformats were generated and reviewed. All CT scans are performed using dose optimization technique as appropriate and may include automated exposure control or mA/KV adjustment according to patient size. FINDINGS: Motion artifact somewhat limits evaluation. No suspicious findings in the lung bases. The liver, spleen, adrenal glands, and pancreas show no suspicious findings. G allbladder surgically removed. Prominent common bile duct caliber, favored to relate to post cholecystectomy status. Symmetric renal function is seen with no hydronephrosis or suspicious renal mass. Few hypoattenuating renal cortical lesions bilaterally, largest measuring 1.8 cm in size at the left interpolar region, stable. Right lower pole 8 mm nonobstructing calculus. No dilated bowel loops. Colonic diverticulosis. Stable extent of segmental wall thickening along the proximal to mid sigmoid colon. Progressive or more conspicuous lobulated marginally enhancing fluid collection, containing small locules of gas anteriorly, along the colonic adventitia in that region, interposed against the left pelvic sidewall, measuring 3.4 x 3.3 x 2.3 cm. No free air, free fluid or other inflammatory stranding. No hernia, mass or bulky lymphadenopathy. The urinary bladder is without significant finding. No suspicious bony findings. IMPRESSION: Progressive or more conspicuous lobulated marginally enhancing fluid collection with punctate foci of gas anteriorly, along the adventitia of the sigmoid colon wall wall interposed against the left pelvic sidewall, suggesting a contained leak, in the setting of incompletely resolved diverticulitis. No free air or free fluid. Nonobstructing right renal lower pole 8 mm calculus. LEFT VENTRICULAR WALL MOTION: DOPPLER/COLOR FLOW: COMMENTS: 1. LIMITED STUDY DUE TO POOR WINDOWS 2. LEFT VENTRICULAR EJECTION FRACTION APPEARS SEVERELY DEPRESSED LVEF 29% Conclusions/Impression: Stage II CARLOS likely ATN in the setting of IVC & hypotension on 08-09-23 IVC exposure on 08-07-23 and 08-09-23 -No NSAIDs -Change IVF 1/2NS HTN with CHF complicated by recent hypotension -Vasopressor support prn -Hold antihypertensives at this time Systolic CHF, chronic -Daily weight Acute respiratory failure with hypoxia Suspected aspiration PNA -Continue ventilatory support -Continue Abx Hyperglycemia -RISS prn Hypoalbuminemia with cachexia -Continue tube feeds Anemia in chronic illness Thrombocytopenia -Monitor CBC Ischemic Encephalopathy -Continue supportive care -NPO Case reviewed with Dr. Yeboah Greater than 30min patient care Thank you kindly for the consultation
[2023-08-11] MEDS ORDERED: VITAL AF 1,000 ML BOT RTH SCH (10:00)
--- NOTE | 2023-08-11 11:08 | PN ---
Date of Progress Note: 08/11/2023 Subjective: The patient is intubated and unresponsive. He is sedated because his respiratory rate g oes up when he is weaned off the sedation. However, there is no movement to deep palpation. His vit al signs are significant for a temperature of 100.3, otherwise they are stable. Laboratory Data: Reviewed. White count is 14.10. His chest x-ray shows slight improvement in the r ight-sided pneumonia. Objective: Abdomen: Soft, nondistended, nontender. Positive bowel sounds. Assessment: Status post code for aspiration pneumonia and recurrent complex sigmoid diverticulitis. Recommendations: Medical management for the vent. The patient may need EEG or Neurology consultatio n to evaluate his neurological status. As far as the abdomen is concerned, the patient can have tube feeds per protocol and continue IV antibiotics. There is no need for any surgical intervention at t his time in this complex patient. Please re-consult Surgery p.r.n. /MODL Voice ID: [id number] Report ID: [id number]
[2023-08-11] MEDS ORDERED: HEPARIN/D5W 25,000 UNIT/500 ML BAG IV ONE (11:14)
[2023-08-11] MEDS: NACHLORIDE 0.45% 1,000 ML IV SCH (11:28)
--- NOTE | 2023-08-11 16:25 | P.PN ---
Subjective Date of Service: 08/11/23 Chief Complaint: Respiratory failure Patient is not doing well unable to tolerate coming of the precedents to becomes very agitated Review of Systems is unable to be obtained Physical Examination - Vital Signs Temperature: 98.2 F Blood Pressure: 128/76 Pulse: 73 Respirations: 14 Pulse Ox (%): 97 - Physical Exam General: Unresponsive Respiratory: Clear to auscultation bilaterally, Diminished Cardiovascular: No edema, Regular rate/rhythm, Normal S1 S2 Gastrointestinal: Soft and benign Assessment And Plan - Current Problems (Diagnosis) (1) Respiratory failure Current Visit: Yes Status: Acute Plan: Patient admitted with respiratory failure presumed secondary two aspiration pneumonia remains very agitated requiring precedexRenal function is slightly worse troponins are decliningPatient is on Zosyn check sputum cultures non-STEMI change to LovenoxVentilator settings review change to SIMV and pressure supportLabs chest x-rays reviewed chest x-ray no significant change white count is mildly elevated consider tube if okay with general surgeryTrial of gabapentin why the NG tube we help with his agitation and IV thymine Qualifiers: Chronicity: acute
[2023-08-11] MEDS ORDERED: NACHLORIDE 0.45% 1,000 ML IV ONE (21:04)
[2023-08-11] MEDS ORDERED: THIAMINE 200 MG/2 ML INJ ONE (21:04)
[2023-08-11] MEDS: ENOXAPARIN 80 MG/0.8 ML SQ SCH (21:40)
[2023-08-11] MEDS: THIAMINE 200 MG/2 ML INJ IVP SCH (21:40)
[2023-08-11] MEDS: GABAPENTIN 100 MG CAP PO SCH (21:40)
[2023-08-12] MEDS ORDERED: HYDROMORPHONE HCL 0.5 MG/0.5 ML INJ ONE ×3 (00:29→15:00)
[2023-08-12 05:11] LABS: Absolute Lymphocytes (CBC) 0.5 K/uL (0.7-4.9); Absolute Monocytes 0.8 K/uL (0.1-1.3); Absolute Neutrophil 7.2 K/uL (1.8-8.0); Basophils % 0.3 % (0-1.3); Hematocrit 32.2 % (39.6-49.0); Hemoglobin 10.8 g/dL (13.6-17.9); Lymphocytes % 5.7 % (15.3-44.8); MCH 30.5 pg (27.0-35.0); MCHC 33.6 g/dL (32.0-36.0); MCV 90.6 fL (80-100); MPV 9.2 fL (7.6-11.3); Monocytes % 9.5 % (3.3-12.3); Neutrophils % 84.5 % (41.7-73.7); Nucleated Red Blood Cells % 0.1 % (0-0); Platelets 113 thou/uL (152-406); RBC Red Blood Cell Count 3.55 M/uL (4.33-5.43); Red Cell Distribution Width 13.9 % (12.1-15.2)
[2023-08-12 05:30] LABS: Albumin 2.2 g/dL (3.4-5.0); Albumin/Globulin Ratio 0.8 (1.1-1.8); Anion Gap 5.6 mEq/L (5.0-15.0); Bilirubin Total 0.5 mg/dL (0.2-1.0); Globulin 2.9 g/dL (2.3-3.5); Magnesium 1.9 mg/dL (1.6-2.4); Potassium 3.6 mEq/L (3.5-5.1); Protein, Total 5.1 g/dL (6.4-8.2)
[2023-08-12] MEDS: KCL 20 MEQ/100 mL IVPB 20 MEQ/100 ML BAG IV SCH (06:29)
--- NOTE | 2023-08-12 07:07 | P.PN ---
Subjective Date of Service: 08/12/23 Chief Complaint: progressive diverticulitis with failed outpt therapy Transferred to ICU, on ventilator plan to wean ventilation, on Precedex for sedation On dopamine for hypotension, Levophed weaned History of uncontrolled/untreated COPD, Solu-Medrol, nebs ordered for acute hypoxic respiratory failure pulmonary following NSTEMI, on heparin drip for NSTEMI, cardiology consulted Plan to initiate NG tube for tube feeding Physical Examination - Physical Exam General: On ventilator, unresponsive HEENT: Normocephalic, Other (right eye clouded, uses drops for glaucoma? Neck: JVD not distended Respiratory: Normal air movement Cardiovascular: Normal pulses, Regular rate/rhythm Capillary refill: <2 Seconds Gastrointestinal: Non-distended, positive bowel sounds, left lower quadrant/suprapubic tenderness Musculoskeletal: No clubbing Integumentary: No erythema, No cyanosis Neurological: Abnormal tone Review of Systems Per HPI Physical Examination - Vital Signs Temperature: 98.5 F Blood Pressure: 120/72 Pulse: 70 Respirations: 15 Pulse Ox (%): 97 Assessment And Plan - Plan Assessment and Plan Acute hypoxic respiratory failure secondary to respiratory arrest Suspected aspiration pneumonia COPD poorly controlled Status post CODE BLUE called patient intubated, placed on mechanical ventilation, Pulmonary consulted, nebs, Solu-Medrol added NG tube placed to low intermittent suction, diet changed to n.p.o. CT of the chest PE protocol ordered no PE SEEN ABG ordered daily chest x ray Septic shock secondary to respiratory arrest Lactic acidosis likely secondary to respiratory arrest status post CPR NSTEMI, elevated troponin Procalcitonin elevated 0.10, lactic 3.5, repeat pending Levophed for hypotension titrate MAP of 65 Dopamine ordered, Haldol, fentanyl for sedation Trend troponin 69.1,-> 6384->3225 Recurrent diverticulitis Zosyn 3.375gm IVPB q 8h, (just finished augmentin and flagyl outpatient) Outpatient colonoscopy in 8-12 weeks Pain control Monitor for perforation Consult Dr. Webster (done from ED) Per surgery will need a repeat colonoscopy in 6 to 8 weeks with GI follow-up outpatient ID consulted Perforated Diverticulum with Contained Abscess - failed outpatient anitbiotic therapy on Augmentin and Flagyl - Currently on Zosyn IV (started 08/07) - CT abdomen pelvis w contrast 08/06: "Progressive or more conspicuous lobulated marginally enhancing fluid collection with punctate foci of gas anteriorly, along the adventitia of the sigmoid colon wall wall interposed against the left pelvic sidewall, suggesting a contained leak, in the setting of incompletely resolved diverticulitis. No free air or free fluid. Nonobstructing right renal lower pole 8 mm calculus." - pt reports having colonscopy in November 2022 in [place]. Unknown results. Patient also reports possible c.diff diagnosis at the time. - C.diff toxin negative, antigen positive. - No c.diff treatment indicated at this time. History of Syphilis - patient reports being treated 3 times for syphilis - most recently reports being treated for syphilis while hospitalized at a facility in [place]. He underwent colonoscopy ~November 2022, reports also being treated for syphilis at the time - Obtain RPR titer Recommendations - abdominal abscess: continue IV antibiotic therapy for 10-14 days, given failure on PO antibiotics as outpatient. Currently on Zosyn, continue for now. - Hx syphilis: Obtain RPR titer. pt reporting being treated for syphilis multiple times, most recently in November 2022. - recommend obtaining HIV screen. Discussed with patient on 08/08 morning and is agreeable to HIV testing - Monitor CBC, BMP, fever trends - Oral care while intubated. - Pressure offloading measures, turn pt q2h. Acute kidney injury BUN 19 creatinine 1.5 Normal saline infusion Will add nephrology consult for worsening kidney failure Protein calorie malnutrition due to no po intake Albumin 2.1, 2.3 NGT start Tube feedings, block greaser consulted Microcytic anemia stable hemoglobin 12.4, hematocrit 37.3 Trend H&H CAD: ASA EC 81mg po BID as home med schedule HTN: Carvedilol 6.25mg po BID HLD: Simvastatin 40mg po q hs Tobacco use Marijuana use Educate on cessation Glaucoma: Have someone bring drops and use as directed DVT/GI prophylaxis SCD, Lovenox Lovenox/protonix disposition: Home, lack of transportation, no reported PCP, lives with ex [id number] - Code Status/Comfort Care Code Status: Full Code Critical Care: Yes Time Spent Managing PTS Care (In Minutes): 65
[2023-08-12] MEDS ORDERED: THIAMINE 200 MG/2 ML INJ ONE ×2 (07:53→20:55)
[2023-08-12] MEDS ORDERED: NACHLORIDE 0.45% 1,000 ML IV ONE (07:54)
[2023-08-12 08:03] VITALS: O2SAT 97
--- NOTE | 2023-08-12 08:35 | P.PN ---
Subjective Date of Service: 08/12/23 Chief Complaint: Respiratory failure And is currently on a ventilator unresponsive comatose Precedex Review of Systems is unable to be obtained Physical Examination - Vital Signs Temperature: 97.3 F Blood Pressure: 137/80 Pulse: 75 Respirations: 16 Pulse Ox (%): 97 - Physical Exam General: Comatose Assessment And Plan - Current Problems (Diagnosis) (1) Respiratory failure Current Visit: Yes Status: Acute Plan: And is in respiratory failure, most likely significant anoxic encephalopathy his renal function is improving reflexes absent prognosis is very poor will see if he has any cerebral activity hide to wean off the sedation chest x-ray has improved advance endotracheal tube 30% FiO2 count is elevated probably non-STEMI on Lovenox Qualifiers: Chronicity: acute
--- NOTE | 2023-08-12 08:44 | P.PN ---
Infectious Disease Progress Note Subjective: Patient seen in ICU. No acute events overnight. Remains intubated and sedated. RN reported no cough or gag reflex, not tolerating tube feeds/high residual. Physical Examination Temp Pulse Resp BP Pulse Ox 97.3 F 75 16 137/80 97 08/12/23 08:37 08/12/23 08:37 08/12/23 08:37 08/12/23 08:37 08/12/23 08:37 General: Intubated, sedated. HEENT: Atraumatic, Normocephalic. ETT Respiratory: intubated, on ventilator Cardiovascular: Regular rate/rhythm. Trace BLE edema. Gastrointestinal: Normoactive bowel sounds. Non-distended. Integumentary: No rashes : Kenny catheter Laboratory Data - Reviewed Microbiology data - Reviewed Imagings Data: - Reviewed Assessment and Plan Problem List Perforated Diverticulum with contained Abscess Acute hypoxic respiratory failure secondary to respiratory arrest Suspected aspiration pneumonia Diverticulitis Coronary Artery Disease Hypertension Hyperlipidemia COPD Glaucoma Hx Syphilis Hx Hepatitis C Nicotine dependence Marijuana/Cocaine use Acute hypoxic respiratory failure secondary to respiratory arrest Suspected aspiration pneumonia NSTEMI - CTA chest 08/08: "No evidence of acute central pulmonary emboli. Dependent airspace opacities in the right more than left upper and lower lobes, concerning for asymmetric pulmonary edema or aspiration." - XR Chest 08/10: "No significant change in right upper lobe opacities. Mild improvement in right basilar opacities" - aspiration pna: on Zosyn - pulmonology following Perforated Diverticulum with Contained Abscess - failed outpatient anitbiotic therapy on Augmentin and Flagyl - Currently on Zosyn IV (started 08/07) - CT abdomen pelvis w contrast 08/06: "Progressive or more conspicuous lobulated marginally enhancing fluid collection with punctate foci of gas anteriorly, along the adventitia of the sigmoid colon wall wall interposed against the left pelvic sidewall, suggesting a contained leak, in the setting of incompletely resolved diverticulitis. No free air or free fluid. Nonobstructing right renal lower pole 8 mm calculus." - pt reports having colonscopy in November 2022 in [place]. Unknown results. Patient also reports possible c.diff diagnosis at the time. - C.diff toxin negative, antigen positive. - No c.diff treatment indicated at this time. History of Syphilis - patient reports being treated 3 times for syphilis - most recently reports being treated for syphilis while hospitalized at a facility in [place]. He underwent colonoscopy ~November 2022, reports also being treated for syphilis at the time Recommendations - abdominal abscess: continue IV antibiotic therapy for 10-14 days (started -) - Continue with zosyn. - suspected aspiration PNA: on Zosym - Monitor CBC, BMP, fever trends - Oral care while intubated. - Pressure offloading measures, turn pt q2h. - pulmonology following overall prognosis poor Case discussed with Zaina Mccray
--- NOTE | 2023-08-12 08:52 | RAD REPORT ---
[facility]37 [facility] CLINICAL HISTORY: Respiratory failure COMPARISON: Chest Single View dated 08/11/2023; Abdomen 1 View (KUB) dated 08/10/2023; Chest Single Vi ew dated 08/10/2023; Chest Single View dated 08/09/2023 TECHNIQUE: Portable AP view of the chest. FINDINGS: Endotracheal tube and enteric tube unchanged in position. Continued partial improvement of right mid lung hazy airspace opacities. Stable minimal medial right basilar opacities. No pneumotho rax or effusion. The cardiomediastinal contours are unchanged, with sequelae of CABG and left atrial appendage occlusion. IMPRESSION: Partial improvement of mild right lung airspace opacities, with mild residual medial bas ilar opacities.
--- NOTE | 2023-08-12 11:38 | P.PN ---
(S) Pt remains intubated, obtunded, on low dose Precedex, over breathing vent rate but per [employer] without any response to painful stimuli and absence of other core reflexed. TF were on hold due to residuals, restarted at low rate since (O) Vitals reviewed in the EMR General: Intubated HEENT: Atraumatic, ET/OT Neck: Supple Respiratory: b/l vent BS without rhonchi Cardiovascular: Non tachy, mostly regular Gastrointestinal: Soft, ND, NT Musculoskeletal: No sig edema, shins non tender Integumentary: No rashes Neurological: Obtunded, no withdrawal to painful stimuli, no myoclonic jerks Urinary: Kenny catheter Blood work reviewed in the chart. . LEFT VENTRICULAR WALL MOTION: DOPPLER/COLOR FLOW: COMMENTS: 1. LIMITED STUDY DUE TO POOR WINDOWS 2. LEFT VENTRICULAR EJECTION FRACTION APPEARS SEVERELY DEPRESSED LVEF 29% Conclusions/Impression: Stage 1 CARLOS, multifactorial -Renal function tests stable, acceptable UOP, d/c maintenance IVF if pt able to tolerate TF/free water flushes NSTEMI, cardiac arrest per reports, cardiomyopathy unspecified -Positive fluid balance, prior hypotension resolved, stop maintenance IVF to prevent fluid overload Acute respiratory failure with hypoxia Suspected aspiration PNA -Continue ventilatory support and management per IM
--- NOTE | 2023-08-12 20:26 | PN ---
Date of Progress Note: 08/12/2023 Subjective: Seen by bedside. Still no brain activity. The patient is intubated and on the ventilat or. No new improvement. Review of Systems: Not obtainable. The patient is on the ventilator, unresponsive. Physical Examination: Vital signs: Reviewed. Head and Neck: There is no JVD. No cervical lymphadenopathy. No thyroid enlargement. No cervical lymphadenopathy. Lungs: Rhonchi bilaterally. No accessory muscle use. No muscle retraction. Heart: Regular rate and rhythm. No extra sounds. Abdomen: Soft. Bowel sounds positive. Extremities: No clubbing, cyanosis. Skin: No rash or nodule. Neuro: On the ventilator, unresponsive. Investigations: BUN 30, creatinine 1.44. Latest troponin was 3255. Assessment/recommendation: 1.Elevated troponin, post cardiac arrest. The patient is still not showing any significant brain ac tivities on the ventilator at this point. Continue to observe. Once his mental status is more clear , then we will plan for ischemia evaluation. 2.Dyslipidemia, on statin, to be continued. SR/MODL Voice ID: [id number] Report ID: [id number]
--- NOTE | 2023-08-12 20:38 | CON ---
Date of Consultation: 08/12/2023 Reason For Consultation: Poorly responsive patient after a code. History Of Present Illness: Mr. Gillis is a 73-year-old patient who came to [facility] on with symptoms of exacerbation of diverticulitis. He has coronary artery disease, hypertensio n, dyslipidemia, glaucoma, and diverticulitis. He reportedly was allergic to Cipro and been treated with Augmentin and Flagyl as an outpatient. After finishing the antibiotics, his pain did not improv e and he had nausea, vomiting, and diarrhea. In the emergency room, has slightly elevated white bloo d cell count and electrolytes showed no significant anemia. He had stable vital signs. However, the patient did apparently have progressive copious, lobulated, enhancing fluid, which with punctate foc i of gas and this was on imaging of the abdomen. In addition, there was in the sigmoid colon and in the adventitia. The imaging of the abdomen suggested a leak. Over the next 2 days, patient was jasmeet ged by hospital service and renal service. On the , the patient was reportedly found unresponsiv e. Code kristy was called and CPR initiated. His chest x-ray suggested pneumonia and cardiac enzymes suggested myocardial infarction. The length of time of the code is not clear. However, following e patient having been resuscitated with intubation and mechanical ventilation since the , he has had very poor neurological responses. He does not withdraw to noxious stimulation. No spontaneous s peech or eye opening or spontaneous movement. He does breathe over the ventilator and with stimulati on increases heart rate and respiratory rate. His head CT scan done on 08/09 showed no acute ischemi c or hemorrhagic change. There is no evidence at that time of loss of lane-white distinction. An ar terial blood gas done on the showed pH of 7.34. pCO2 of 39.5, pO2 of 60.9, and bicarb 28.8. His cardiac enzymes on the showed 6384 troponin 1 high sensitivity, which trended down by the to 3225.5. His lactic acid on the was elevated at 3.5, consistent with a systemic infection. H is white blood cell count had increased to 14.1 on the , today 5.0 after antibiotics hydration. Past Medical History: Hypertension, dyslipidemia, coronary artery disease, emphysema, COPD, divertic ulitis, hepatitis C, history of syphilis. Past Surgical History: Cholecystectomy, coronary artery bypass grafting, and cataract surgery. Allergies: CIPROFLOXACIN AND CODEINE. Medications At Home: Zocor at night, carvedilol twice daily, and aspirin 81 mg daily. Family History: Noncontributory. 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 Does drink beer a nd smokes 2 pack cigarettes daily. Smokes marijuana and uses marijuana gummies. It is noted, the humphrey benjamin lives with a friend and an [id number] and he has poor sight. He and noted was a truck d [employer], but has not driven a truck in 32 years. Review of Systems: The patient is intubated and unresponsive to verbal stimulation. Physical Examination: Vital Signs: Blood pressure 144/78, pulse up to 97, respiratory rate up to 24 (up to 12). His tempe rature is 98.6 oxygen saturation 98%. General: Mr. Gillis is intubated. No spontaneous eye opening or movements of the arms and legs. HEENT: He has the left pupil around 2 or 3 mm. No clear reaction to light. He does not have a visu al threat response. In the right eye, he has chronic issue of opacification of the right eye. He redding s no doll's eyes response. He does breathe over the machine and with stimulation in the supraorbital region, he was able to increase heart rate and respiratory rate. Stimulation of the extremities did not change his respiratory rate or heart rate any further. Neuro: He had no focal withdrawal or systemic response or generalized response to stimulation of the hands or feet or the sternal region. He did have normal tone. Current Laboratory Studies: White blood cell count 8.5, hemoglobin 10.8, platelets 113. His PTT 37. 3. Sodium 143, potassium 3.7, chloride 117, carbon dioxide 24, creatinine 1.44, glucose 129, calcium 7.6. His lactic acid has returned to normal on the at 1.8. His magnesium 1.9. AST 76, ALT 26 , alkaline phosphatase 49. Urinalysis: 3+ ketones, trace budding yeast, trace protein, and he has C difficile antigen positive. Toxin negative. Chest x-ray from 08/11/2023 showed no significant medrano ge in the right upper lobe opacities. Mild improvement in the right basilar opacities. Echocardiogr am shows left ventricular ejection fraction 29% and was a limited study due to poor windows. Assessment: Mr. Gillis is a 73-year-old patient with multiple medical problems, which are noted. He w as coded from review of the chart, apparently found unresponsive about 45 minutes after tray of food was given. Therefore, it is unclear how long the patient was unresponsive. Following the code on , he has not shown any improvement in his responsiveness in the last [address] scan righ t after the event showed no acute ischemic or hemorrhagic findings. He is able to breathe over the v ent and has increasing heart rate with stimulation. He has no withdrawal noted in the upper and lowe r extremities to noxious stimulation. He has no doll's eyes response, no visual threat response, and no clear change in pupillary signs but light in the left eye. Right eye is chronically opacified. His blood work suggested myocardial infarction in addition to systemic infection and he is on Zosyn 3 .375 mg every 8 hours. Again, he is intubated. The patient's prognosis for meaningful recovery is v gio poor given his 3 day unresponsive level in terms of focal findings and no visual threat response. No significant pupillary response and no doll's eyes response. He does have some brainstem functio n enough to breathe over the vent and have elevation in heart rate. The patient's sister is coming i n from out of town. There are no other relatives in the area as she is from [place]. Plan/recommendations: 1.Once the sister had a time to see the patient and patient's condition discussed with her as there will be withdrawal of care as patient has no meaningful chance of significant recovery from where he is currently. 2.He may continue with supportive care at this point. LARRY/BLAYNE Voice ID: [id number] Report ID: [id number]
[2023-08-12] MEDS ORDERED: ATORVASTATIN 20 MG TAB ONE (20:55)
[2023-08-13 05:13] LABS: Absolute Lymphocytes (CBC) 0.6 K/uL (0.7-4.9); Absolute Monocytes 0.6 K/uL (0.1-1.3); Absolute Neutrophil 5.4 K/uL (1.8-8.0); Basophils % 0.1 % (0-1.3); Eosinophils % 0.4 % (0-4.4); Hematocrit 31.5 % (39.6-49.0); Hemoglobin 10.7 g/dL (13.6-17.9); Lymphocytes % 8.4 % (15.3-44.8); MCH 30.7 pg (27.0-35.0); MCHC 33.8 g/dL (32.0-36.0); MCV 90.8 fL (80-100); MPV 9.3 fL (7.6-11.3); Monocytes % 9.3 % (3.3-12.3); Neutrophils % 81.8 % (41.7-73.7); Nucleated Red Blood Cells % 0.1 % (0-0); Platelets 103 thou/uL (152-406); RBC Red Blood Cell Count 3.47 M/uL (4.33-5.43); Red Cell Distribution Width 13.7 % (12.1-15.2)
[2023-08-13 05:31] LABS: Albumin 2.1 g/dL (3.4-5.0); Albumin/Globulin Ratio 0.7 (1.1-1.8); Anion Gap 8.4 mEq/L (5.0-15.0); Bilirubin Total 0.7 mg/dL (0.2-1.0); Phosphorus 2.2 mg/dL (2.5-4.9); Potassium 3.4 mEq/L (3.5-5.1); Protein, Total 5.1 g/dL (6.4-8.2)
[2023-08-13] MEDS: KCL 20 MEQ/100 mL IVPB 20 MEQ/100 ML BAG IV SCH (06:38)
[2023-08-13] MEDS: POTASSIUM PHOS IN 0.9 % NACL 15 MMOL/250 ML BAG IV ONE (06:38)
[2023-08-13] MEDS ORDERED: LORazepam 2 MG/ML VIAL ONE ×5 (07:25→17:29)
[2023-08-13] MEDS: levETIRAcetam 1,000 MG in NA CHLORIDE 0.9% 100 ML IV ONE (08:36)
--- NOTE | 2023-08-13 08:42 | RAD REPORT ---
EXAM DES[facility]13/2023 6:36 am CLINICAL HISTORY: Respiratory failure COMPARISON: Chest Single View dated 08/12/2023; Chest Single View dated 08/11/2023; Abdomen 1 View ([facility]) dated 08/10/2023; Chest Single View dated 08/10/2023 TECHNIQUE: Portable AP view of the chest. FINDINGS: Stable residual hazy opacities in the right mid to upper lung and right medial base. Endot reed tube and enteric tube are not significantly changed in position. No pneumothorax or effusion . The cardiomediastinal contours are unchanged. IMPRESSION: Stable findings as above. .
[2023-08-13] MEDS ORDERED: THIAMINE 200 MG/2 ML INJ ONE (08:47)
--- NOTE | 2023-08-13 08:47 | P.PN ---
Subjective Date of Service: 08/13/23 Chief Complaint: Respiratory failure Transferred to ICU, on ventilator plan to wean ventilation, on Precedex for sedation On dopamine for hypotension, Levophed weaned History of uncontrolled/untreated COPD, Solu-Medrol, nebs ordered for acute hypoxic respiratory failure pulmonary following NSTEMI, on heparin drip for NSTEMI, cardiology consulted Physical Examination - Physical Exam General: On ventilator, unresponsive HEENT: Normocephalic, Other (right eye clouded, uses drops for glaucoma? Neck: JVD not distended Respiratory: Normal air movement Cardiovascular: Normal pulses, Regular rate/rhythm Capillary refill: <2 Seconds Gastrointestinal: Non-distended, positive bowel sounds, left lower quadrant/suprapubic tenderness Musculoskeletal: No clubbing Integumentary: No erythema, No cyanosis Neurological: Abnormal tone Physical Examination - Vital Signs Temperature: 97.7 F Blood Pressure: 103/63 Pulse: 62 Respirations: 21 Pulse Ox (%): 98 Assessment And Plan - Plan Assessment and Plan Acute hypoxic respiratory failure secondary to respiratory arrest Suspected aspiration pneumonia COPD poorly controlled Status post CODE BLUE called patient intubated, placed on mechanical ventilation, Pulmonary consulted, nebs, Solu-Medrol added NG tube placed to low intermittent suction, diet changed to n.p.o. CT of the chest PE protocol ordered no PE SEEN ABG ordered daily chest x ray Septic shock secondary to respiratory arrest Lactic acidosis likely secondary to respiratory arrest status post CPR NSTEMI, elevated troponin Procalcitonin elevated 0.10, lactic 3.5, repeat pending Levophed for hypotension titrate MAP of 65 Dopamine ordered, Haldol, fentanyl for sedation Trend troponin 69.1,-> 6384->3225 Recurrent diverticulitis Zosyn 3.375gm IVPB q 8h, (just finished augmentin and flagyl outpatient) Outpatient colonoscopy in 8-12 weeks Pain control Monitor for perforation Consult Dr. Webster (done from ED) Per surgery will need a repeat colonoscopy in 6 to 8 weeks with GI follow-up outpatient ID consulted Perforated Diverticulum with Contained Abscess - failed outpatient anitbiotic therapy on Augmentin and Flagyl - Currently on Zosyn IV (started 08/07) - CT abdomen pelvis w contrast 08/06: "Progressive or more conspicuous lobulated marginally enhancing fluid collection with punctate foci of gas anteriorly, along the adventitia of the sigmoid colon wall wall interposed against the left pelvic sidewall, suggesting a contained leak, in the setting of incompletely resolved diverticulitis. No free air or free fluid. Nonobstructing right renal lower pole 8 mm calculus." - pt reports having colonscopy in November 2022 in [place]. Unknown results. Patient also reports possible c.diff diagnosis at the time. - C.diff toxin negative, antigen positive. - No c.diff treatment indicated at this time. History of Syphilis - patient reports being treated 3 times for syphilis - most recently reports being treated for syphilis while hospitalized at a facility in [place]. He underwent colonoscopy ~November 2022, reports also being treated for syphilis at the time - Obtain RPR titer Recommendations - abdominal abscess: continue IV antibiotic therapy for 10-14 days, given failure on PO antibiotics as outpatient. Currently on Zosyn, continue for now. - Hx syphilis: Obtain RPR titer. pt reporting being treated for syphilis multiple times, most recently in November 2022. - recommend obtaining HIV screen. Discussed with patient on 08/08 morning and is agreeable to HIV testing - Monitor CBC, BMP, fever trends - Oral care while intubated. - Pressure offloading measures, turn pt q2h. Acute kidney injury BUN 19 creatinine 1.5 Normal saline infusion Will add nephrology consult for worsening kidney failure Protein calorie malnutrition due to no po intake Albumin 2.1, 2.3 NGT start Tube feedings, top executive consulted CAD: ASA EC 81mg po BID as home med schedule HTN: Carvedilol 6.25mg po BID HLD: Simvastatin 40mg po q hs Tobacco use Marijuana use Educate on cessation Glaucoma: Have someone bring drops and use as directed DVT/GI prophylaxis SCD, Lovenox Lovenox/protonix disposition: Home, lack of transportation, no reported PCP, lives with ex [id number]
--- NOTE | 2023-08-13 09:46 | P.PN ---
Subjective Date of Service: 08/13/23 Chief Complaint: Respiratory failure And is currently on a ventilator unresponsive comatose Precedex no change in patient's condition sisters at the bedside Review of Systems is unable to be obtained Physical Examination - Vital Signs Temperature: 97.7 F Blood Pressure: 101/63 Pulse: 62 Respirations: 19 Pulse Ox (%): 97 - Physical Exam General: Comatose Assessment And Plan - Current Problems (Diagnosis) (1) Respiratory failure Current Visit: Yes Status: Acute Plan: Patient has been in comatose state since he was transferred to the ICU no meaningful respond he has generalized flaccidity plantar responses are absent pupillary reflexes are absent seen by neurology the sisters said that his wishes were not to be remain on a ventilator and they agree on withdrawal of care patient is at baseline disabled from [place] 9 months ago history of alcohol and tobacco abuse labs reviewed agree with extubation and comfort care Qualifiers: Chronicity: acute
[2023-08-13] MEDS ORDERED: D5W IV SCH (14:00)
[2023-08-13] MEDS ORDERED: LORAZEPAM IV SCH (14:00)
[2023-08-13] MEDS ORDERED: HYDROMORPHONE HCL 0.5 MG/0.5 ML INJ ONE ×2 (14:12→16:00)
[2023-08-13] MEDS: HYDROMORPHONE HCL 0.5 MG/0.5 ML INJ IV PRN (16:02)
--- NOTE | 2023-08-13 16:08 | P.PN ---
Date of Service: 08/12/23 Subjective Patient remains unresponsive. Prognosis remains very poor. I was able to contact patient's sister and she will be here in the morning. Physical Examination - Vital Signs Reviewed - Physical Exam General: On ventilator, unresponsive HEENT: Unresponsive; ET tube in place Respiratory: Diminished breath sounds bibasilar Cardiovascular: Regular rate/rhythm Gastrointestinal: Non-distended, positive bowel sounds, left lower quadrant/suprapubic tenderness Musculoskeletal: No clubbing Integumentary: No erythema, No cyanosis Neurological: Decorticate posturing Assessment and Plan Acute hypoxic respiratory failure secondary to respiratory arrest Suspected aspiration pneumonia COPD poorly controlled Patient was intubated on August 08. Remains unresponsive. Prognosis is poor. Septic shock secondary to respiratory arrest Lactic acidosis likely secondary to respiratory arrest status post CPR NSTEMI, elevated troponin Patient with hypoxic respiratory failure. Prognosis is very poor. Perforated Diverticulum with Contained Abscess Continue with antibiotic therapy History of Syphilis -Patient completed treatment Acute kidney injury Renal function is stable; continue to monitor Protein calorie malnutrition due to no po intake May need to start tube feeds; prognosis poor CAD: Continue antiplatelet therapy; along with statin therapy. No cardiac intervention at this time. HTN: Carvedilol 6.25mg po BID HLD: Simvastatin 40mg po q hs Tobacco use Marijuana use Educate on cessation Glaucoma: Have someone bring drops and use as directed DVT/GI prophylaxis SCD, Lovenox Lovenox/protonix Disposition: Poor prognosis; end-of-life care.
[2023-08-13 16:21] VITALS: TEMP 101.1
[2023-08-13] MEDS: LORazepam 2 MG/ML VIAL IV SCH (17:37)
[2023-08-13] MEDS ORDERED: HYDROMORPHONE HCL 1 MG/ML INJ ONE (17:41)
[2023-08-13] MEDS: HYDROMORPHONE HCL 1 MG/ML INJ IV SCH (17:41)
[2023-08-13 17:58] VITALS: BP 104/67
[2023-08-13] MEDS ORDERED: levETIRAcetam 500 MG in NA CHLORIDE 0.9% 100 ML IV SCH (21:00)
[2023-08-13] MEDS ORDERED: levETIRAcetam 1,000 MG in NA CHLORIDE 0.9% 100 ML IV SCH (21:00)
--- NOTE | 2023-08-14 07:12 | P.DS ---
Admission Date: 08/07/23 Discharge Date: 08/14/23 Disposition: Discharge Condition: Reason for Admission: Respiratory failure Vital Signs/Physical Exam: Temp Pulse Resp BP Pulse Ox 101.1 F H 110 H 29 H 104/67 39 L 08/13/23 16:00 08/13/23 17:00 08/13/23 17:41 08/13/23 17:00 08/13/23 17:41 Laboratory Data at Discharge: WBC 6.60 thou/uL (4.3-10.9) 08/13/23 04:35 Hgb 10.7 g/dL (13.6-17.9) L 08/13/23 04:35 Hct 31.5 % (39.6-49.0) L 08/13/23 04:35 Plt Count 103 thou/uL (152-406) L 08/13/23 04:35 PT 15.8 SECONDS (9.5-12.5) H 08/09/23 13:25 INR 1.45 08/09/23 13:25 APTT Cancelled 08/11/23 18:30 Sodium 144 mEq/L (136-145) 08/13/23 04:35 Potassium 3.4 mEq/L (3.5-5.1) L 08/13/23 04:35 BUN 25 mg/dL (7-18) H 08/13/23 04:35 Creatinine 1.36 mg/dL (0.70-1.30) H 08/13/23 04:35 Glucose 137 mg/dL (74-106) H 08/13/23 04:35 Phosphorus Cancelled 08/13/23 05:00 Magnesium 2.0 mg/dL (1.6-2.4) 08/13/23 04:35 Total Bilirubin 0.7 mg/dL (0.2-1.0) 08/13/23 04:35 AST 62 U/L (15-37) H 08/13/23 04:35 ALT 22 U/L (16-61) 08/13/23 04:35 Alkaline Phosphatase 48 U/L (45-117) 08/13/23 04:35 Lipase 15 U/L (13-75) 08/07/23 12:28 Home Medications: Aspirin Chewable [Aspirin Chewable*] 1 tab PO BID 03/14/23 Simvastatin [Zocor] 2 tab PO BEDTIME 03/14/23 carvediloL [Carvedilol] 1 tab PO BID 03/14/23 Followup: NONE,NONE [Primary Care Provider] -
--- NOTE | 2023-08-15 02:29 | P.DS ---
Discharge Date: 08/13/23 Disposition: Discharge Condition: Reason for Admission: Respiratory failure Brief History of Present Illness: Mr. Gillis is a 73-year-old gentleman with a history of coronary artery disease, hypertension, hyperlipidemia, glaucoma, and diverticulitis. He was seen on July 13 with an exacerbation of his diverticulitis. His record indicates he is allergic to Cipro. He was given Augmentin and Flagyl to take as an outpatient. He states he finished his antibiotics but his pain has gotten worse. He has been having significant nausea and diarrhea, no vomiting. In the emergency department, laboratory evaluation reveals a white count of 12.9, H&H 14.9/45.6, electrolytes are normal. Vital signs stable, afebrile. He is a thin man and appears mildly dehydrated. Imaging interpreted by Dr. Huerta with impression "p rogressive or more conspicuous lobulated marginally enhancing fluid collection with punctate foci of gas anteriorly, along the adventitia of the sigmoid colon wall interposed against the left pelvic sidewall, suggesting a contained leak, in the setting of incompletely resolved diverticulitis. No free air or free fluid. Nonobstructing right renal lower pole [address] Webster was consulted by the ED provider and will see the patient. Will obtain blood cultures, C. difficile, and begin Zosyn 3.375 g IV piggyback every 8 hours at 2100. Hospital Course: Patient had a cardiac arrest during hospitalization. We were able to get in touch with family and they stated that they did not want patient is the remain on life support indefinitely as that would not be patient's wishes. Tissue fluids moved to do not attempt resuscitation and withdrawal of care proceeded. Patient at 5:52 p.m.. Home Medications: RX: Aspirin Chewable [Aspirin Chewable*] 1 tab PO BID 03/14/23 RX: Simvastatin [Zocor] 2 tab PO BEDTIME 03/14/23 RX: carvediloL [Carvedilol] 1 tab PO BID 03/14/23 Physician Discharge Instructions: Patient's body was released to home. Followup: NONE,NONE [Primary Care Provider] - Time spent managing pt's care (in minutes): 35
== END 2023-08-13 19:38 | disposition expired | DRG 870 ==
LOC: ER 12:08 → ERHOLD 16:11 → 4TH 17:17 → 3RD-ICU 08-09 13:53
PROVIDERS: ADMIT Hospitalist; ATTEND Hospitalist
PROC: 4A033R1 Measurement of Arterial Saturation, Peripheral, Percutaneous Approach (ICD-10-PCS; principal; 2023-08-09)
PROC: 5A1955Z Respiratory Ventilation, Greater than 96 Consecutive Hours (ICD-10-PCS; 2023-08-09)
PROC: 5A12012 Performance of Cardiac Output, Single, Manual (ICD-10-PCS; 2023-08-09)
PROC: 0BH17EZ Insertion of Endotracheal Airway into Trachea, Via Natural or Artificial Opening (ICD-10-PCS; 2023-08-09)
PROC: 0T9B70Z Drainage of Bladder with Drainage Device, Via Natural or Artificial Opening (ICD-10-PCS; 2023-08-09)
PROC: 02HV33Z Insertion of Infusion Device into Superior Vena Cava, Percutaneous Approach (ICD-10-PCS; 2023-08-09)
PROC: 3E043XZ Introduction of Vasopressor into Central Vein, Percutaneous Approach (ICD-10-PCS; 2023-08-10)
PROC: 0DH67UZ Insertion of Feeding Device into Stomach, Via Natural or Artificial Opening (ICD-10-PCS; 2023-08-10)
DX: A41.9 Sepsis, unspecified organism (principal); J96.01 Acute respiratory failure with hypoxia; R65.21 Severe sepsis with septic shock; I21.4 Non-ST elevation (NSTEMI) myocardial infarction; J69.0 Pneumonitis due to inhalation of food and vomit; N17.0 Acute kidney failure with tubular necrosis; R40.20 Unspecified coma; K57.20 Diverticulitis of large intestine with perforation and abscess without bleeding; R64 Cachexia; J44.1 Chronic obstructive pulmonary disease with (acute) exacerbation; E87.20 Acidosis, unspecified; N17.9 Acute kidney failure, unspecified; E46 Unspecified protein-calorie malnutrition; I50.22 Chronic systolic (congestive) heart failure; G93.1 Anoxic brain damage, not elsewhere classified; I42.9 Cardiomyopathy, unspecified; I11.0 Hypertensive heart disease with heart failure; K59.00 Constipation, unspecified; E86.0 Dehydration; H40.9 Unspecified glaucoma; D69.6 Thrombocytopenia, unspecified; I49.01 Ventricular fibrillation; E78.00 Pure hypercholesterolemia, unspecified; D63.8 Anemia in other chronic diseases classified elsewhere; E88.09 Other disorders of plasma-protein metabolism, not elsewhere classified; K52.9 Noninfective gastroenteritis and colitis, unspecified; I25.10 Atherosclerotic heart disease of native coronary artery without angina pectoris; I25.2 Old myocardial infarction; R73.9 Hyperglycemia, unspecified; Z66 Do not resuscitate; Z78.1 Physical restraint status; Z88.5 Allergy status to narcotic agent; Z88.1 Allergy status to other antibiotic agents; Z95.1 Presence of aortocoronary bypass graft; Z79.82 Long term (current) use of aspirin; Z68.20 Body mass index [BMI] 20.0-20.9, adult; Z79.02 Long term (current) use of antithrombotics/antiplatelets; Z90.49 Acquired absence of other specified parts of digestive tract; Z79.899 Other long term (current) drug therapy; Z87.891 Personal history of nicotine dependence
CPT/HCPCS: 36415; 36600; 70450; 71045; 71275; 74018; 74177; 80053; 80069; 81001; 82805; 82947; 83605; 83690; 83735; 84100; 84145; 84484; 85025; 85610; 85730; 87040; 87324; 92950; 93306; 94002; 94003; 99285; C9113; J0171; J1170; J1265; J1630; J1644; J1650; J1940; J1953; J2250; J2405; J2543; J2919; J3010; J3411; J3475; J3480; J7030; J7060; Q9967